=== PATIENT | female | born 1955 | race Caucasian/White ===

== ENCOUNTER → 2017-07-29 | Outpatient (CLI) | payer OTHER ==
[2017-07-29 07:06] LABS: Blood Urea Nitrogen 14 mg/dL (7-17)
--- NOTE | 2017-07-29 10:24 | CT ---
EXAMINATION TYPE: CT ChestAbdPelvis w con DATE OF EXAM: 07/29/2017 COMPARISON: CT pelvis and lumbar spine 05/28/2017 HISTORY: 62-year-old female follow up to rectal CA TECHNIQUE: Contiguous axial scanning of the chest, abdomen, and pelvis performed with IV Contrast, pa tient injected with 100 mL of Omnipaque 300. Delayed images through the kidneys were obtained. Araujo l/sagittal reconstructions performed. CT DLP: 1035.1 mGycm Automated exposure control for dose reduction was used. FINDINGS: Chest: Heart is normal size without pericardial effusion. Coronary vessel calcifications are present and are a marker for coronary artery disease. Ectatic ascending aorta at 3.8 cm. Mild atherosclerotic arch calcifications with conventional arch ve ssel branching anatomy. No thoracic lymphadenopathy by CT size criteria. However, numerous bilateral pulmonary nodules are present. Most are 1.5 cm and smaller. Dominant nodu le measures 3.1 cm anterior right upper lobe and 3.1 cm right infrahilar region. A 1.4 cm right lower lobe pulmonary nodule shows central cavitation, axial image 34. No consolidation or pleural effusion. ABDOMEN: No focal liver lesion or biliary ductal dilatation. Main portal vein is patent. Somewhat early imagin g for adequate assessment of the remaining of the portal venous system. Cholecystectomy clips. A 1.5 cm left adrenal gland nodule appears relatively low density with attenuation of 14 [place] u nits on the delayed kidney images. An adrenal adenoma is suspected. Findings suspicious for a 1.5 cm splenic artery aneurysm with peripheral calcifications. Kidneys, spleen, and pancreas show no gross anomaly. Retroaortic left renal vein incidentally noted. No dilated small bowel, free fluid, or free air. Oral contrast has progressed into the transverse col on. There is moderate stool burden, redundant sigmoid colon. Circumferential wall thickening along the upper rectum (axial image 100) and some mural based increas ed density thickening along the lower rectum (axial image 110) which could represent stool material o r mass and can be correlated clinically. No mesenteric or retroperitoneal lymphadenopathy. PELVIS: Bladder is urine distended. Uterus and ovaries are visualized. No abnormal fluid collection in the pe lvis. Stable mildly enlarged 9 mm right upper presacral lymph node axial image 93 and borderline-size d 5 mm left upper presacral lymph node, axial image 94, decreased in size from 6 mm, previously. Bones: Stable nonspecific focal soft tissue density within the fatty marrow space of the right sacrum, axial image 97. Left L5 hemisacralization and redemonstrated diffuse osteosclerosis and irregularity of th e L3 vertebral body with retropulsion into the spinal canal causing moderate to severe spinal canal s tenosis. As compared to 05/28/2017, mild superior endplate compression deformity of L4 is new. There may be minimal paravertebral soft tissue thickening. No additional osseous destructive process seen. IMPRESSION: 1. SIMILAR CIRCUMFERENTIAL WALL THICKENING UPPER RECTUM. ALSO SOME PERIPHERAL MURAL BASED DENSITY LOW ER RECTUM. CLINICAL CORRELATION RECOMMENDED TO THE SITE OF PATIENT'S KNOWN RECTAL CARCINOMA. 2. A MILDLY ENLARGED 9 MM RIGHT UPPER PRESACRAL LYMPH NODE IS STABLE. A BORDERLINE-SIZED 5 MM LEFT UP PER PRESACRAL LYMPH NODE IS MINIMALLY DECREASED IN SIZE FROM 6 MM, PREVIOUSLY. 3. NUMEROUS BILATERAL PULMONARY NODULES, MAJORITY MEASURING 1.5 CM AND SMALLER BUT WITH LARGER NODULE S/MASSES IN THE RIGHT UPPER LOBE AND RIGHT INFRAHILAR REGION MEASURING UP TO 3.1 CM. FINDINGS SUGGEST METASTATIC DISEASE. 4. STABLE SCLEROSIS AND IRREGULARITY OF THE L3 VERTEBRAL BODY WHICH MAY BE SECONDARY TO METASTATIC DI SEASE WITH RETROPULSION CONTRIBUTING TO MODERATE TO SEVERE SPINAL CANAL STENOSIS. 5. SMALL SOFT TISSUE FOCUS RIGHT SACRUM REDEMONSTRATED AND COULD REPRESENT AN ADDITIONAL OSSEOUS META STATIC FOCUS. 6. MILD SUPERIOR ENDPLATE COMPRESSION FRACTURE OF L4 IS NEW IN THE INTERVAL. A SUBACUTE INJURY IS DESIREE PECTED. 7. A 1.5 CM LEFT ADRENAL NODULE. AN ADRENAL ADENOMA IS SUSPECTED RATHER THAN METASTATIC DISEASE. ATTE NTION ON FOLLOW-UP. 8. 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
== END | disposition home or self-care (01) ==
LOC: RADCTMAIN 06:27
PROVIDERS: ATTEND Internal Medicine Hematology & Oncology
DX: C20 Malignant neoplasm of rectum (principal); R91.8 Other nonspecific abnormal finding of lung field; E27.8 Other specified disorders of adrenal gland; I72.8 Aneurysm of other specified arteries
CPT/HCPCS: 82565; 84520; 71260; 74177; 36415; Q9967

== ENCOUNTER → 2017-10-18 | Outpatient (CLI) | payer OTHER ==
--- NOTE | 2017-10-18 13:05 | XR ---
Left hip HISTORY: Left hip pain 2 views of the left hip correlated to chest abdomen pelvis CT 07/29/2017 Bone mineralization is reduced which could limit sensitivity. Alignment and joint spaces are maintain ed. Vascular calcifications are noted incidentally. No fracture or dislocation. Sclerotic focus noted within the sacrum incidentally. IMPRESSION: Osteopenia, bone scan or MRI may be of increased sensitivity, patient with known metastat ic disease
--- NOTE | 2017-10-18 13:06 | XR ---
Left knee HISTORY: Left knee pain 2 views of the left knee Bone mineralization is reduced. Alignment and joint spaces are maintained. Vascular calcifications ar e present. No evident joint effusion. IMPRESSION: Osteopenia, no acute abnormality.
== END | disposition home or self-care (01) ==
LOC: RADXRMAIN 09:59
PROVIDERS: ATTEND Internal Medicine
DX: C80.1 Malignant (primary) neoplasm, unspecified (principal); M85.852 Other specified disorders of bone density and structure, left thigh; M85.862 Other specified disorders of bone density and structure, left lower leg
CPT/HCPCS: 73502

== ENCOUNTER → 2017-10-22 | Outpatient (CLI) | payer OTHER ==
[2017-10-22 08:59] LABS: Blood Urea Nitrogen 15 mg/dL (7-17)
--- NOTE | 2017-10-22 14:34 | CT ---
EXAMINATION TYPE: CT ChestAbdPelvis w con DATE OF EXAM: 10/22/2017 INDICATION: Rectal CA COMPARISON: 07/29/2017 CT DLP: 1151.2 mGycm CONTRAST: Performed with Oral Contrast and with IV Contrast, patient injected with 100 mL of Isovue 300. TECHNIQUE: Axial images at 5 mm thick sections. Reconstructed images in the coronal plane. Delayed images through the kidneys. FINDINGS: CT CHEST: There is a small hypodensity in the lateral midportion of the left lobe thyroid. Thyroid otherwise ap pears unremarkable. There is a right upper lobe mass adjacent to the mediastinum measuring 3.6 x 3.2 cm in size. Series 3 image 14. This extends towards the right suprahilar region. This has enlarged from comparison. There is a right infrahilar mass measuring 3.0 x 2.3 cm. Series 3 image 27. Additional left and right infrahilar nodules are present. This appears stable from comparison. On lung windows there are numerous small nodules present diffusely and bilaterally.. These are increa sed in size and number from comparison. No enlarged mediastinal or hilar adenopathy is evident. The ascending aorta diameter at the level of the main pulmonary artery is 4.1 cm. The main pulmonary artery diameter at the bifurcation is 2.[address] ABDOMEN: Liver: Normal Spleen: Normal Pancreas: Normal Adrenal glands: The adrenal glands are normal. Gallbladder: Surgically absent Kidneys: No masses are evident. No hydronephrosis is present. No cysts are present. Delayed images were obtained through the kidneys, which remain unremarkable. Aorta: Vascular calcification is within the aorta. Inferior vena cava: Normal. CT PELVIS: Loops of bowel within the abdomen and pelvis are normal. There are loops of bowel which are incom pletely distended or lack oral contrast limiting their evaluation. Appendix: Not identified. No suspicious inflammatory changes or dilated tubular structures are eviden t. Urinary bladder: Normal. Genitourinary structures: Uterus appears unremarkable. Adnexal regions appear within normal limits. Osseous structures: There are compression deformities L3, L4 and L2. Vacuum disc phenomenon is presen t L1-2 and L2-3. Some posterior wall displacement of the L3 compression deformity may be present. IMPRESSIONS: 1. Enlarging right upper lobe medial mass. 2. Increasing number and size of multiple bilateral scattered pulmonary nodules. 3. Interval compression deformity superior endplate of L2. The L3 and L4 compression deformities appe ar stable.
== END | disposition home or self-care (01) ==
LOC: RADCTMAIN 08:15
PROVIDERS: ATTEND Internal Medicine Hematology & Oncology
DX: R91.8 Other nonspecific abnormal finding of lung field (principal); C20 Malignant neoplasm of rectum; Z91.030 Bee allergy status
CPT/HCPCS: 82565; 84520; 71260; 74177; 36415; Q9967

== ENCOUNTER → 2017-11-03 | Outpatient (CLI) | payer OTHER ==
--- NOTE | 2017-11-03 15:53 | NM ---
EXAMINATION TYPE: NM bone scan whole body DATE OF EXAM: 11/03/2017 COMPARISON: CT chest, abdomen, and pelvis dated 10/22/2017 HISTORY: Rectal carcinoma Delayed whole-body scanning was performed following the injection of 25.1 mCi Tc 99m MDP. Images acq uired 3 hours post injection. FINDINGS: Focal abnormal radiotracer uptake is seen within the left pedicle of T8. Retrospectively th ere is a subtle osseous lesion seen on the exam of 10/22/2017 corresponding to this area of uptake. Ot her abnormal areas of radiotracer uptake within the L4, L3, and L2 as well as to a lesser degree of L 5 are favored to represent degenerative change and sequela of compression deformities. Again the comp ression deformities of L3 and 4 are stable from the exam of 07/29/2017. Mild symmetric uptake is seen within the sacroiliac joints, acromioclavicular joints, sternoclavicula r joints, elbows, knees, ankles, and mid feet compatible with degenerative change. No other suspiciou s foci of radiotracer uptake are identified. IMPRESSION: 1. Focal radiotracer uptake within the T8 left pedicle that has a nonspecific appearance on CT but is suspicious for new metastasis. Enhanced MR thoracic spine is recommended to evaluate for bone marrow replacing process on T1-weighted sequences as well as enhancement. 2. Old compression deformities of L3 and L4 with radiotracer uptake are also noted at L2 likely repre senting a subacute compression deformity. MR could be performed to evaluate for pathologic compressio n deformities.
== END | disposition home or self-care (01) ==
LOC: RADNMMAIN 09:45
PROVIDERS: ATTEND Internal Medicine Hematology & Oncology
DX: M43.8X6 Other specified deforming dorsopathies, lumbar region (principal); M25.552 Pain in left hip; C20 Malignant neoplasm of rectum; Z91.030 Bee allergy status
CPT/HCPCS: 78306; A9503

== ENCOUNTER 2017-11-20 09:37 | Day surgery (SDC) | payer OTHER ==
[2017-11-17 08:59] VITALS: BMI 28.5
[~2017-11-20 09:37] MED LIST: DEXAMETHASONE SOD PHOSPHATE 10 MG/ML 1 ML VIAL IV ONE; HYDROmorphone 0.5 MG/0.5 ML SYRINGE IVP PRN; LACTATED RINGERS 1,000 ML IV SCH; ONDANSETRON 4 MG/2 ML VIAL IVP ONE
[2017-11-20] MEDS ORDERED: LIDOCAINE 1% 20 ML VIAL (10MG/ML) FOR IV START IV ONE (10:12)
[2017-11-20] MEDS ORDERED: MIDAZOLAM 2 MG/2 ML VIAL ONE (12:01)
[2017-11-20] MEDS ORDERED: PROPOFOL 10 MG/ML 20 ML VIAL IV ONE (12:01)
[2017-11-20] MEDS ORDERED: fentaNYL (PF) 50 MCG/ML 2 ML AMP ONE (12:01)
[2017-11-20] MEDS ORDERED: ceFAZolin IN SWFI 2 GM/20 ML SYRINGE IVP ONE (12:08)
[2017-11-20] MEDS ORDERED: HEPARIN SODIUM,PORCINE 100 UNIT/ML 5 ML VIAL IV ONE (12:16)
[2017-11-20] MEDS ORDERED: LIDOCAINE (PF) 10 MG/ML 2 ML VIAL SQ ONE ×2 (12:16)
--- NOTE | 2017-11-20 13:10 | FL ---
Fluoroscopy INDICATION: Pain FINDINGS: Fluoroscopy time: 7 seconds. Images obtained: 1. IMPRESSIONS: 1. Documentation of fluoroscopy.
[2017-11-20 13:23] VITALS: TEMP 97.2
--- NOTE | 2017-11-20 13:28 | P.OP ---
Date of Procedure: 11/20/17 Preoperative Diagnosis: Rectal CA Postoperative Diagnosis: Rectal CA Procedure(s) Performed: Right subclavian Mediport placement and flex sigmoidoscopy with biopsy of rectal cancer Anesthesia: MAC Surgeon: Bacilio Mancini Estimated Blood Loss (ml): 5 Condition: stable Disposition: PACU Indications for Procedure: Patient with known rectal CA, she needs port for chemotherapy and oncology is requesting biopsy of rectal tumor for further genetic testing regarding chemotherapy options. Description of Procedure: Patient brought operative suite remained in supine position underwent sedation per department of anesthesia. She was prepped and draped in the usual sterile fashion timeout was performed correct patient correct procedure correct site was verified the skin and subcutaneous tissues over the right anterior chest just at inferior to the clavicle was anesthetized with 1% local lidocaine. The patient was placed in Trendelenburg The cannulating needle was then used to cannulate the right subclavian vein on the first attempt. Guidewire was passed and verified under fluoroscopy to be in the correct place. Sheath was placed over the guidewire and the dilator and guidewire were removed leaving the sheath in place pocket was created 3 cm distal to this incision and hemostasis was achieved the catheter was then attempted to be placed over the sheath and the sheath had collapsed between the subclavian and first ribs the sheath was removed and a larger 8-Russian sheath was then replaced in a similar fashion on the first attempt the 8-Russian catheter was easily placed through the sheath and into the correct place at the SVC atrial junction under fluoroscopy. The sheath was broken and removed. Leaving the catheter in place. The catheter which had been tunneled previously was then attached to the port and the port was sutured to the prepectoral fascia using 2-0 PDS suture. The port was then flushed and hep-locked with ease final picture was taken the port was noted to be in good place the incision was closed with 30 subdermal sutures followed by 4 -0 Monocryl sutures the neck incision was closed with 4-0 Monocryl Steri-Strips and sterile dressing were applied. Attention was then turned to the rectum rectal exam was performed there was a large mass noted in the rectum flex sigmoidoscopy was performed and this large fungating mass which is partially obstructing was unable to have the scope passed completely passed it there was stool passing through it. There were multiple biopsies taken with both snare and cold forceps biopsies hemostasis was achieved biopsies were sent to pathology patient tolerated procedure well no apparent complications chest x- ray was ordered for PACU
[2017-11-20 13:39] VITALS: RESP 18
--- NOTE | 2017-11-20 13:45 | XR ---
EXAMINATION TYPE: XR chest 1V portable DATE OF EXAM: 11/20/2017 COMPARISON: CT chest abdomen pelvis dated 10/22/2017 HISTORY: Mediport placement TECHNIQUE: Single frontal view of the chest is obtained. FINDINGS: There is no focal air space opacity, pleural effusion, or pneumothorax seen. Right upper l obe mediastinal mass abuts the right paratracheal stripe. The known right infrahilar mass is not well visualized radiographically. The cardiac silhouette size is within normal limits. The osseous stru ctures are intact. Right-sided Mediport terminates in the cavoatrial junction, appropriately placed. IMPRESSION: 1. Appropriately placed right-sided Mediport terminating in the cavoatrial junction with no postproce dural pneumothorax. 2. Redemonstration of a right upper lobe pulmonary mass with limited visualization of the known right infrahilar mass better seen on CT.
[2017-11-20 14:06] VITALS: BP 160/90; PULSE 70
== END 2017-11-20 14:10 | disposition home or self-care (01) ==
LOC: OR 09:37
PROVIDERS: ATTEND Student in an Organized Health Care Education/Training Program
DX: C20 Malignant neoplasm of rectum (principal); C78.7 Secondary malignant neoplasm of liver and intrahepatic bile duct; C79.89 Secondary malignant neoplasm of other specified sites; I10 Essential (primary) hypertension; Z85.038 Personal history of other malignant neoplasm of large intestine; Z87.891 Personal history of nicotine dependence; M19.90 Unspecified osteoarthritis, unspecified site; Z79.891 Long term (current) use of opiate analgesic; Z79.899 Other long term (current) drug therapy
CPT/HCPCS: 88305; 77001; 71045; 45331; 36561; C1788; J2250; J2001; J1642; J1100; J2405; J3010; J2704; J0690

== ENCOUNTER → 2018-03-03 | Outpatient (CLI) | payer OTHER ==
[2018-03-03 11:43] LABS: Blood Urea Nitrogen 12 mg/dL (7-17)
--- NOTE | 2018-03-03 14:00 | CT ---
EXAMINATION TYPE: CT ChestAbdPelvis w con DATE OF EXAM: 03/03/2018 COMPARISON: 10/22/2017 and 07/29/2017 HISTORY: 63 year-old female follow-up Rectal CA. Last chemotherapy one week ago. TECHNIQUE: Contiguous axial scanning of the chest, abdomen, and pelvis performed with IV Contrast, pa tient injected with 100 mL of Isovue 300. Delayed images through the kidneys were obtained. Coronal/s agittal reconstructions performed. CT DLP: 1342.8 mGycm Automated exposure control for dose reduction was used. FINDINGS: Right anterior chest wall injection port with catheter tip at the cavoatrial junction. Heart normal s ize without pericardial effusion. Coronary vessel calcifications are present. Ectatic ascending aorta 3.9 cm with mild atherosclerotic arch calcifications. Stable 7 mm subcarinal lymph node. No thoracic lymphadenopathy by CT size criteria. Interval decrease in overall number and size of numerous bilateral pulmonary nodules, for example, do minant medial right upper lobe pulmonary nodule now measures 2.0 cm versus 3.6 cm, previously. Superior segment right lower lobe pulmonary nodule measures 2.5 cm and shows internal areas of air ca vitation versus 3.1 cm, previously. Left lower lobe peribronchial nodule measures 1.1 cm versus 1.6 cm, previously. No new pulmonary nodules are seen. No pleural effusions. Prominent 1.5 cm right hilar lymph node remains. ABDOMEN: No focal liver lesion or biliary ductal dilatation. Portal venous system is patent. Cholecystectomy clips. Stable 1.6 cm nodule left adrenal gland and and some peripheral calcifications near the splenic hilum measuring 1.6 cm, probable splenic artery aneurysm. Right adrenal gland, kidneys, spleen, and pancreas appear within normal limits. Moderate to severe focal atherosclerotic change within the proximal SMA at the level of the third por tion of the duodenum. Moderate atherosclerotic calcifications in the infrarenal abdominal aorta and iliac arteries. Retroaortic left renal vein. No mesenteric or retroperitoneal lymphadenopathy. No dilated small bowel, free fluid, or free air. Oral contrast progressed to the proximal third trans verse colon. There is moderate stool with mild diverticulosis proximal and mid sigmoid. No pericoloni c inflammatory change. The previously seen mild circumferential wall thickening at the rectosigmoid j unction is less apparent. Pelvis: Uterus and ovaries are visualized. Possible endometrial thickening at 1 cm, sagittal image 47 giving better assessed with pelvic ultrasound. Pelvic phlebolith. No abnormal fluid collection in the pelvis or pelvic lymphadenopathy. Bones: Mild degenerative changes at the hips. Left L5 hemisacralization. Diffuse heterogeneous sclerosis of the L3 vertebral body with endplate deformities and severe spinal canal stenosis due to retropulsion. Sclerosis has progressed from 10/22/2017. Superior endplate compression deformities of L2 and L4 are unchanged from that time. There is progressive sclerosis and lucency within the T8 vertebral body. IMPRESSION: 1. POSITIVE TREATMENT RESPONSE WITH DECREASED SIZE AND NUMBER OF NUMEROUS BILATERAL PULMONARY NODULES . THE DOMINANT RIGHT UPPER LOBE NODULE NOW MEASURES 2.0 CM VERSUS 3.6 CM, PREVIOUSLY. 2. PREVIOUS CIRCUMFERENTIAL WALL THICKENING AT THE RECTOSIGMOID JUNCTION HAS RESOLVED AND MAY CORRESP OND TO THE SITE OF PATIENT'S PRIMARY NEOPLASM. 3. STABLE L3 VERTEBRAL BODY DEFORMITY WITH PROGRESSIVE SCLEROSIS FROM 10/22/2017 COULD REPRESENT HEALI NG OSSEOUS METASTASIS. THERE IS SIMILAR RETROPULSION WITH SEVERE SPINAL CANAL STENOSIS AT THIS LEVEL. 4. INCREASING HETEROGENEITY OF THE T8 VERTEBRAL BODY COULD REPRESENT INTERVAL HEALING OF A SECOND SIT E OF OSSEOUS METASTASIS. FOLLOW-UP RECOMMENDED. 5. POSSIBLE ABNORMAL ENDOMETRIAL THICKENING OF 1 CM IN A POSTMENOPAUSAL FEMALE. CORRELATE FOR ANY POS TMENOPAUSAL BLEEDING. CONSIDER PELVIC ULTRASOUND TO FURTHER ASSESS THE ENDOMETRIAL STRIPE.
== END | disposition home or self-care (01) ==
LOC: RADPROMAIN 10:22
PROVIDERS: ATTEND Internal Medicine Hematology & Oncology
DX: C20 Malignant neoplasm of rectum (principal); R91.8 Other nonspecific abnormal finding of lung field; C79.51 Secondary malignant neoplasm of bone
CPT/HCPCS: 82565; 84520; 71260; 74177; 36415; Q9967

== ENCOUNTER → 2018-06-05 | Outpatient (CLI) | payer OTHER ==
[2018-06-05 12:17] LABS: Blood Urea Nitrogen 13 mg/dL (7-17)
--- NOTE | 2018-06-05 18:15 | CT ---
EXAMINATION TYPE: CT ChestAbdPelvis w con DATE OF EXAM: 06/05/2018 INDICATION: Rectal CA COMPARISON: 03/03/2018 CT DLP: 1335.9 mGycm CONTRAST: Performed with Oral Contrast and with IV Contrast, patient injected with 100 mL of Isovue 300. TECHNIQUE: Axial images at 5 mm thick sections. Reconstructed images in the coronal plane. Delayed images through the kidneys. FINDINGS: CT CHEST: Portion of the thyroid visualized is normal. There is an irregular 2.4 x 1.3 cm mass lateral to the superior vena cava and the right upper lobe. T his is slightly larger than comparison. Series 4 image 15. There is a 0.4 cm transverse dimension nodule in the peripheral right upper lobe. Series 4 image 12. This was present previously. There is an area of pneumonitis measuring 0.7 cm in the peripheral right upper lobe. Series 4 image 1 7. This appears more focal in the comparison. There is a 0.4 similar nodule in the periphery of the right upper lung field. Series 4 image 18. This was not identified previously. There is a 1.4 right hilar mass which is smaller than comparison previously 1.6 cm. A 1.3 cm rounded nodule in periphery of the right lower lobe is stable from comparison. Series 4 image 26. There is a right lower lobe 1.8 cm spiculated area of pneumonitis are less dense comparison study. Sl ightly more anterior 0.6 cm which is less than comparison. Series 4 image 30. There is a smaller density in the peripheral left lower lobe. 0.5 cm. Series 4 image 38. No enlarged mediastinal or hilar adenopathy is evident. The ascending aorta diameter at the level of the main pulmonary artery is 3.8 cm. The main pulmonary artery diameter at the bifurcation is 2.[address] ABDOMEN: Liver: There is mild fatty infiltration of liver. Spleen: Normal.Suspected splenic artery aneurysm appears stable. Pancreas: Normal Adrenal glands: There is a 1.6 cm nodule in the posterior lateral the left adrenal gland. This is sta ble from priors. Gland appears normal. Gallbladder: Surgically absent Kidneys: No masses are evident. No hydronephrosis is present. No cysts are present. Delayed images were obtained through the kidneys, which remain unremarkable. Aorta: Vascular calcification is within the aorta. Inferior vena cava: Normal. CT PELVIS: Loops of bowel within the abdomen and pelvis are normal. There are loops of bowel which are incom pletely distended or lack oral contrast limiting their evaluation. Patient's reported rectosigmoid ma ss node be difficult to separate from the fecal debris present within the colon. Appendix: What appears to be the appendix is normal. No suspicious tubular structures or inflammatory changes are evident. Urinary bladder: Normal. Genitourinary structures: Uterus is normal. A 1.3 cm cyst on the right ovary is not excluded. Osseous structures: No suspicious lytic or sclerotic lesions. Facet changes lumbar spine. IMPRESSIONS: 1. Spiculated mass right upper lobe slightly larger than comparison. 2. Multiple additional areas of lung nodules or pneumonitis are relatively stable slightly improved f rom comparison.
== END | disposition home or self-care (01) ==
LOC: RADPROMAIN 10:46
PROVIDERS: ATTEND Internal Medicine Hematology & Oncology
DX: R91.8 Other nonspecific abnormal finding of lung field (principal); C20 Malignant neoplasm of rectum
CPT/HCPCS: 82565; 84520; 71260; 74177; 36415; Q9967

== ENCOUNTER → 2018-08-25 | Outpatient (CLI) | payer OTHER ==
[2018-08-25 08:13] LABS: Blood Urea Nitrogen 14 mg/dL (7-17)
--- NOTE | 2018-08-25 09:33 | CT ---
EXAMINATION TYPE: CT ChestAbdPelvis w con DATE OF EXAM: 08/25/2018 COMPARISON: June 05, 2018 HISTORY: Follow up to rectal CA CT DLP: 1840 mGycm CONTRAST: CT scan of the chest, abdomen and pelvis is performed with Oral Contrast and with IV Contrast, patien t injected with 100 mL of [address]vue 300. [address] Chest: LUNGS: Spiculated nodule right upper lobe medially appears to have enlarged and measures 2.8 cm maxim al dimension versus 2.4 cm previously. Stable right lower lobe pulmonary nodule measuring 1.3 cm vers us 1.3 cm. Additional stable spiculated right lower lobe nodule measuring 1.6 cm versus 1.7 cm. Addit ional numerous pulmonary nodules measuring less than 8 mm appear stable in overall number. MEDIASTINUM: Thoracic aorta is of normal caliber. The heart is not enlarged. No evidence for media stinal mass or adenopathy. HILAR STRUCTURES: No evidence for mass. No hilar adenopathy is appreciated. OTHER: No significant abnormality. CONTRAST CT ABDOMEN AND PELVIS FINDINGS: LIVER/GB: The gallbladder is surgically absent. No space occupying hepatic lesion. Biliary tree is of normal caliber. PANCREAS: No inflammation. No distinct mass. SPLEEN: No splenic enlargement. No lesion seen. ADRENALS: Stable left adrenal nodule measuring 1.3 cm versus a 1.5 cm previously. No thickening. KIDNEYS/BLADDER: No hydronephrosis. No nephrolithiasis. No disctinct renal mass. BOWEL: Normal appendix. Normal bowel caliber. No inflammation. GENITAL ORGANS: No gross abnormality. LYMPH NODES: No greater than 1cm abdominal or pelvic lymph nodes are appreciated. AORTA: No significant abnormality. OSSEOUS STRUCTURES: No significant abnormality is seen. OTHER: No significant additional abnormality is seen. IMPRESSION: 1. Innumerable bilateral pulmonary nodules persist. Dominant spiculated nodule right upper lobe demon strates slight increase in size. Overall no increase in the overall number of nodules suspected. 2. Stable left adrenal nodule.
== END | disposition home or self-care (01) ==
LOC: RADCTMAIN 07:27
PROVIDERS: ATTEND Internal Medicine Hematology & Oncology
DX: E27.8 Other specified disorders of adrenal gland (principal); R91.8 Other nonspecific abnormal finding of lung field; C20 Malignant neoplasm of rectum
CPT/HCPCS: 82565; 84520; 71260; 74177; 36415; Q9967

== ENCOUNTER → 2018-12-14 | Outpatient (CLI) | payer OTHER ==
--- NOTE | 2018-12-14 15:13 | CT ---
EXAMINATION TYPE: CT ChestAbdPelvis w con DATE OF EXAM: 12/14/2018 INDICATION: Rectal CA, observation for mets COMPARISON: 08/25/2018 CT DLP: 989.3 mGycm CONTRAST: Performed with Oral Contrast and with IV Contrast, patient injected with 100 mL of Isovue 300. TECHNIQUE: Axial images at 5 mm thick sections. Reconstructed images in the coronal plane. Delayed images through the kidneys. FINDINGS: CT CHEST: Portion of the thyroid visualized is normal. There are numerous punctate nodules scattered throughout the bilateral lung maki. Some larger notab le nodules would include: There is a 0.7 cm nodule in the posterior lateral left lung base. Series 201 image 40. Punctate nodul es measured up to 0.3 cm are at the left lung base posterior lateral. 0.8 cm nodules in the left late ral lung base. Series 201 image 33. 0.8 cm nodules in the medial right middle lobe. There is a 2.1 x 1.4 cm spiculated density in the posterior right lower lobe. There is a posterior la teral right midlung nodule measuring 1.3 cm. Image 23 there is a spiculated density at the posterior lateral right apex measuring 1.0 cm. There is a 2.5 x 2.2 cm nodule adjacent to the superior right mediastinal border. This is smaller luz maria n comparison. There is a 1.1 cm right suprahilar lymph node. Note is made of coronary artery calcification. The ascending aorta diameter at the level of the main pulmonary artery is 2.7 cm. The main pulmonary artery diameter at the bifurcation is 2.[address] ABDOMEN: Liver: Normal Spleen: Normal Pancreas: Normal Adrenal glands: There is thickening of 1.7 cm to the lateral limb of the left adrenal gland. Gallbladder: Surgically absent Kidneys: No masses are evident. No hydronephrosis is present. No cysts are present. Delayed images were obtained through the kidneys, which remain unremarkable. Aorta: Vascular calcification is within the aorta. 2.2 cm abdominal aortic fusiform prominence is in the mid abdominal aorta. Inferior vena cava: Normal. CT PELVIS: Loops of bowel within the abdomen and pelvis are normal. There are loops of bowel which are incom pletely distended or lack oral contrast limiting their evaluation. Appendix: Normal as visualized. Urinary bladder: Normal. Genitourinary structures: Uterus appears unremarkable. Adnexal regions are clear. Osseous structures: No suspicious lytic or sclerotic lesions. There is some lucency along the superio r margin of the right acetabulum. Nondisplaced fracture could be considered. Right acetabulum appears somewhat sclerotic. IMPRESSIONS: 1. Numerous scattered bilateral small nodules within the bilateral lung maki. 2. The largest mass superior right mediastinal border region is smaller than the comparison. 3. The pretracheal lymph node is new from comparison. The subcarinal lymph node is stable. 4. Some nondisplaced linear for at the level of the acetabulum should be considered. This extends bey ond the cortex although an occult fracture should be considered.
== END | disposition home or self-care (01) ==
LOC: RADPROMAIN 07:02
PROVIDERS: ATTEND Internal Medicine Hematology & Oncology
DX: R91.8 Other nonspecific abnormal finding of lung field (principal); Z03.89 Encounter for observation for other suspected diseases and conditions ruled out
CPT/HCPCS: 82565; 84520; 71260; 74177; Q9967

== ENCOUNTER 2018-12-15 07:46 | Emergency (ER) | payer OTHER ==
[2018-12-15 07:51] VITALS: BP 110/79; PULSE 87; RESP 20; TEMP 98.6
--- NOTE | 2018-12-15 07:54 | ED ---
Recheck HPI - General Chief Complaint: Recheck/Abnormal Lab/Rx Stated Complaint: Arm pain Time Seen by Provider: 12/15/18 07:53 Source: patient Mode of arrival: ambulatory Limitations: no limitations - History of Present Illness Initial Comments: 63-year-old female with history of colon cancer with metastasis to the liver and lungs presenting for evaluation of right upper arm pain. Patient states that she had a CT of her chest yesterday. She states she received IV contrast, in the arm that is painful. Patient denies any leakage of fluid into the arm or swelling at the time of CT. Patient states that she woke up this morning with arm pain she points on history taking from the level of the mid humerus to the mid forearm. Patient denies any swelling of the elbow redness fever or chills nightsweats or malaise. Patient states that she is able to bend at the elbow but the arm is tender to touch. Patient denies redness, or rash. Patients son was concerned and made patient come to the ER for evaluation. Patient denies fall or trauma. Patietn denies shortness of breath, chest pain, arm swelling, history of DVT/PE or any other complaints. Upon arrival patient appears well. - Related Data Home Medications Medication Instructions Recorded Confirmed HYDROcodone/APAP 7.5-325MG [Minong 1 tab PO BID 12/15/18 12/15/18 7.5-325] Hydrochlorothiazide [Hydrodiuril] 12.5 mg PO DAILY 12/15/18 12/15/18 Lisinopril-Hctz 10-12.5 mg 1 tab PO DAILY 12/15/18 12/15/18 [Zestoretic 10-12.5] Allergies Allergy/AdvReac Type Severity Reaction Status Date / Time bee venom protein (honey bee) Allergy Swelling Verified 12/15/18 08:23 Review of Systems ROS Statement: Those systems with pertinent positive or pertinent negative responses have been documented in the HPI. ROS Other: All systems not noted in ROS Statement are negative. Past Medical History Past Medical History: Cancer, Hypertension, Osteoarthritis (OA) Additional Past Medical History / Comment(s): RECTAL CANCER,SPOTS ON LUNGS AND LIVER" History of Any Multi-Drug Resistant Organisms: None Reported Past Surgical History: Section, Cholecystectomy Additional Past Surgical History / Comment(s): C SECTION X2 , COLONOSCOPY Past Anesthesia/Blood Transfusion Reactions: Postoperative Nausea & Vomiting (PONV) Additional Past Anesthesia/Blood Transfusion Reaction / Comment(s): CLAUSTROPHOBIA Past Psychological History: No Psychological Hx Reported Smoking Status: Former smoker Past Alcohol Use History: None Reported Past Drug Use History: None Reported - Past Family History Mother Family Medical History: Cancer Father Family Medical History: Cancer Sister(s) Family Medical History: Deep Vein Thrombosis (DVT) General Exam - General Exam Comments Initial Comments: General: The patient is awake and alert, in no distress, and does not appear acutely ill. Eye: Pupils are equal, round and reactive to light, extra-ocular movements are intact. No nystagmus. There is normal conjunctiva bilaterally. No signs of icterus. Ears, nose, mouth and throat: There are moist mucous membranes and no oral lesions. Neck: The neck is supple, there is no tenderness or JVD. Cardiovascular: There is a regular rate and rhythm. No murmur, rub or gallop is appreciated. Respiratory: Lungs are clear to auscultation, respirations are non-labored, breath sounds are equal. No wheezes, stridor, rales, or rhonchi. Gastrointestinal: Soft, non-distended, non-tender abdomen without masses or organomegaly noted. There is no rebound or guarding present. Musculoskeletal: No noted erythema and soft tissue swelling of the right elbow or right upper extremity. Patient is tender to palpation along the ventral aspect of the right upper extremity from the mid humerus to the midforarm. No n oted masses or redness. Normal ROM, no tenderness at elbow/wrist. Strength 5/5. Sensation intact both proximal and distal to injury site. +2 radial pulses equal bilaterally 2+. Neurological: A&O x 3. CN II-XII intact, There are no obvious motor or sensory deficits. Coordination appears grossly intact. Speech is normal. Skin: Skin is warm and dry and no rashes. Small scab over the dorsal aspect of the right forearm, just distal to the elbow joint. Psychiatric: Cooperative, appropriate mood & affect, normal judgment. Limitations: no limitations Course Vital Signs 12/15/18 07:49 Temperature 98.6 F Pulse Rate 87 Respiratory 20 Rate Blood Pressure 110/79 O2 Sat by Pulse 99 Oximetry - Reevaluation(s) Reevaluation #1: 12/15/18 10:12 Spoke with Miri Clemente that took care of patient the day prior she states there was no extravastion of fluid from CT. she states patient did have to hold arm over head, various positions. Medical Decision Making - Medical Decision Making 63-year-old female presenting for right arm pain. There is no evidence of skin changes on examination. Patient neurovascularly intact. Full sensation and strength. Patient is able to range without limitations at the right elbow no evidence of redness of the right elbow. Patient is no swelling noted of the right upper extremity. No noted point localized tenderness around the IV site. Patient is tender along the ventral aspect. The patient's history of cancer concern for possible deep venous thrombosis. Child was obtained revealing no evidence of blood clot. I was able to speak with the [facility] that K for patient yesterday. She states that patient was complaining of pain when the IV was removed. She states patient was not experiencing pain before. She denied any leakage of the IV site. She states patient was in various positioning of the right arm she states this could be a cause. Patient at this time is requesting discharge. Patient be placed in sling for comfort. Recommend patient follow-up with primary care provider and return to ER for persistent, increasing pain any redness swelling or fevers. Patient verbalized understanding. Patient discharged appearing well after discussing case with Disposition Clinical Impression: Right arm pain Disposition: HOME SELF-CARE Condition: Good Instructions (If sedation given, give patient instructions): Arm Pain (ED) Additional Instructions: Please use medication as discussed. Please follow-up with family doctor in the next 2 days of symptoms have not improved. Please return to emergency room if the symptoms increase or worsen or for any other concerns, swelling, redness, fevers, increasing or persistent pain. Is patient prescribed a controlled substance at d/c from ED?: No Referrals: Sharon Askew MD [Primary Care Provider] - 1-2 days Time of Disposition: 09:21
--- NOTE | 2018-12-15 08:49 | US ---
EXAMINATION TYPE: US venous doppler duplex UE RT DATE OF EXAM: 12/15/2018 COMPARISON: NONE CLINICAL HISTORY: Pain. Pt states CT with IV contrast done yesterday/ currently having pain at IV sit e right arm near antecubital fossa SIDE PERFORMED: Right Right Arm: Negative for DVT Grayscale, color doppler, spectral doppler imaging performed of the deep veins of the right upper ext remities. There is normal flow, compressibility and vascular waveforms IMPRESSION: No ultrasound evidence for acute deep or superficial venous thrombosis in the right upper extremity. .
== END 2018-12-15 09:37 | disposition home or self-care (01) ==
LOC: EC 07:46
DX: M79.621 Pain in right upper arm (principal); I10 Essential (primary) hypertension; M19.90 Unspecified osteoarthritis, unspecified site; C78.7 Secondary malignant neoplasm of liver and intrahepatic bile duct; C78.00 Secondary malignant neoplasm of unspecified lung; Z87.891 Personal history of nicotine dependence; Z79.891 Long term (current) use of opiate analgesic; Z79.899 Other long term (current) drug therapy; Z91.030 Bee allergy status; Z85.048 Personal history of other malignant neoplasm of rectum, rectosigmoid junction, and anus; Z85.038 Personal history of other malignant neoplasm of large intestine; Z82.49 Family history of ischemic heart disease and other diseases of the circulatory system
CPT/HCPCS: 99283

== ENCOUNTER 2019-01-22 17:38 | Emergency (ER) | payer OTHER ==
[2019-01-22 17:47] VITALS: BP 120/81; PULSE 85; RESP 18; TEMP 98.4
--- NOTE | 2019-01-22 18:37 | ED ---
Allergic Reaction HPI - General Chief complaint: Allergic Reaction Stated complaint: Allergic Reaction Time Seen by Provider: 01/22/19 18:09 Source: patient, RN notes reviewed Mode of arrival: ambulatory Limitations: no limitations - History of Present Illness Initial Comments: 64-year-old female presents emergency Department with chief complaint of rash, ALLERGIC reaction. Patient states that she was started on a new chemotherapy medication called capecitabine yesterday she has taken 2 doses. Patient states shortly after initial dose that she noticed that she had some difficulty breathing states that she also had a flushed feeling her skin turned red. Patient states her difficult breathing has resolved but states that she still has some redness and flushed feeling. Patient states that she also received her intravenous given medication yesterday. Patient states this is not a new medication for her. Patient does not take any medications currently for the reaction. She has no sore throat. Patient states that symptoms are improved at this time. - Related Data Home Medications Medication Instructions Recorded Confirmed HYDROcodone/APAP 7.5-325MG [[place] 1 tab PO BID 12/15/18 12/15/18 7.5-325] Hydrochlorothiazide [Hydrodiuril] 12.5 mg PO DAILY 12/15/18 12/15/18 Lisinopril-Hctz 10-12.5 mg 1 tab PO DAILY 12/15/18 12/15/18 [Zestoretic 10-12.5] Allergies Allergy/AdvReac Type Severity Reaction Status Date / Time bee venom protein (honey bee) Allergy Swelling Verified 01/22/19 17:47 Review of Systems ROS Statement: Those systems with pertinent positive or pertinent negative responses have been documented in the HPI. ROS Other: All systems not noted in ROS Statement are negative. Past Medical History Past Medical History: Cancer, Hypertension, Osteoarthritis (OA) Additional Past Medical History / Comment(s): RECTAL CANCER,SPOTS ON LUNGS AND LIVER" History of Any Multi-Drug Resistant Organisms: None Reported Past Surgical History: Section, Cholecystectomy Additional Past Surgical History / Comment(s): COLONOSCOPY Past Anesthesia/Blood Transfusion Reactions: Postoperative Nausea & Vomiting (PONV) Additional Past Anesthesia/Blood Transfusion Reaction / Comment(s): CLAUSTRO PHOBIA Past Psychological History: No Psychological Hx Reported Smoking Status: Former smoker Past Alcohol Use History: None Reported Past Drug Use History: None Reported - Past Family History Mother Family Medical History: Cancer Father Family Medical History: Cancer Sister(s) Family Medical History: Deep Vein Thrombosis (DVT) General Exam Limitations: no limitations General appearance: alert, in no apparent distress Head exam: Present: atraumatic, normocephalic, normal inspection Eye exam: Present: normal appearance, PERRL, EOMI. Absent: scleral icterus, conjunctival injection, periorbital swelling ENT exam: Present: normal exam, normal oropharynx, mucous membranes moist Neck exam: Present: normal inspection, full ROM. Absent: tenderness, meningismus, lymphadenopathy Respiratory exam: Present: normal lung sounds bilaterally. Absent: respiratory distress, wheezes, rales, rhonchi, stridor Cardiovascular Exam: Present: regular rate, normal rhythm, normal heart sounds. Absent: systolic murmur, diastolic murmur, rubs, gallop, clicks Skin exam: Present: warm, dry, intact, normal color. Absent: rash Course Vital Signs 01/22/19 17:44 Temperature 98.4 F Pulse Rate 85 Respiratory 18 Rate Blood Pressure 120/81 O2 Sat by Pulse 99 Oximetry Medical Decision Making - Medical Decision Making 64-year-old female presented for mild reaction to new chemotherapy medication. I did contact her oncologist Dr. Noguera who recommended patient to discontinue the medication will follow-up at the beginning a week with either him or nurse practitioner. Patient is stable symptoms are subsiding. Patient does not require steroids or and history is at this time. Disposition Clinical Impression: Adverse reaction to drug Disposition: HOME SELF-CARE Condition: Stable Instructions (If sedation given, give patient instructions): General Allergic Reaction (ED) Additional Instructions: Please return to the Emergency Department if symptoms worsen or any other concerns. Is patient prescribed a controlled substance at d/c from ED?: No Referrals: Sharon Askew MD [Primary Care Provider] - 1-2 days Tyson Noguera MD [STAFF PHYSICIAN] - 1-2 days Time of Disposition: 18:36
== END 2019-01-22 18:51 | disposition home or self-care (01) ==
LOC: EC 17:38
DX: R21 Rash and other nonspecific skin eruption (principal); T45.1X5A Adverse effect of antineoplastic and immunosuppressive drugs, initial encounter; I10 Essential (primary) hypertension; Z79.899 Other long term (current) drug therapy; Z91.030 Bee allergy status; Z87.891 Personal history of nicotine dependence; Z85.048 Personal history of other malignant neoplasm of rectum, rectosigmoid junction, and anus
CPT/HCPCS: 99283

== ENCOUNTER 2019-02-24 12:48 | Inpatient (IN) | payer OTHER ==
[2019-02-24] MEDS ORDERED: SODIUM CHLORIDE 0.9% 2,000 ML IV STA (14:38)
[2019-02-24] MEDS ORDERED: MORPHINE SULFATE 4 MG/ML SYRINGE IV STA (14:38)
[2019-02-24] MEDS ORDERED: SODIUM CHLORIDE 0.9% 1,000 ML IV STA (14:38)
--- NOTE | 2019-02-24 14:51 | ED ---
Back Pain HPI - General Chief Complaint: Back Pain/Injury Stated Complaint: back pain Time Seen by Provider: 02/24/19 14:08 Source: patient, RN notes reviewed, old records reviewed Limitations: no limitations - History of Present Illness Initial Comments: 64-year-old female with a history of colon cancer presents emergency department today with worsening mid lower back pain with radiation down the right leg. Patient reports 10 history of cancer in her lumbar spine, but her pain has become out of control. She states she's been taking Hesperus 3 times a day with no significant relief of her symptoms. Patient states that she is concerned cancer may have returned to her spine. Patient states that she's had no abnormal stools or vomiting. She denies any urinary symptoms. - Related Data Home Medications Medication Instructions Recorded Confirmed HYDROcodone/APAP 7.5-325MG [Hesperus 1 tab PO Q8H 12/15/18 02/24/19 7.5-325] Hydrochlorothiazide [Hydrodiuril] 12.5 mg PO DAILY 12/15/18 02/24/19 Lisinopril [Zestril] 20 mg PO DAILY 02/24/19 02/24/19 Allergies Allergy/AdvReac Type Severity Reaction Status Date / Time bee venom protein (honey bee) Allergy Swelling Verified 02/24/19 14:02 Review of Systems ROS Statement: Those systems with pertinent positive or pertinent negative responses have been documented in the HPI. ROS Other: All systems not noted in ROS Statement are negative. Past Medical History Past Medical History: Cancer, Hypertension, Osteoarthritis (OA) Additional Past Medical History / Comment(s): RECTAL CANCER,SPOTS ON LUNGS AND LIVER" History of Any Multi-Drug Resistant Organisms: None Reported Past Surgical History: Section, Cholecystectomy Additional Past Surgical History / Comment(s): COLONOSCOPY Past Anesthesia/Blood Transfusion Reactions: Postoperative Nausea & Vomiting (PONV) Additional Past Anesthesia/Blood Transfusion Reaction / Comment(s): CLAUSTROPHOBIA Past Psychological History: No Psychological Hx Reported Smoking Status: Former smoker Past Alcohol Use History: None Reported Past Drug Use History: None Reported - Past Family History Mother Family Medical History: Cancer Father Family Medical History: Cancer Sister(s) Family Medical History: Deep Vein Thrombosis (DVT) General Exam - General Exam Comments Initial Comments: Is a 64-year-old female. Alert and oriented 3. No significant distress. Limitations: no limitations General appearance: alert, in no apparent distress Head exam: Present: atraumatic Eye exam: Present: normal appearance, PERRL, EOMI. Absent: scleral icterus, conjunctival injection, periorbital swelling ENT exam: Present: normal exam, mucous membranes moist Neck exam: Present: normal inspection. Absent: tenderness, meningismus, lymphadenopathy Respiratory exam: Present: normal lung sounds bilaterally. Absent: respiratory distress, wheezes, rales, rhonchi, stridor Cardiovascular Exam: Present: regular rate, normal rhythm, normal heart sounds. Absent: systolic murmur, diastolic murmur, rubs, gallop, clicks GI/Abdominal exam: Present: soft, normal bowel sounds. Absent: distended, guarding, rebound, rigid Extremities exam: Present: normal inspection Back exam: Present: normal inspection, tenderness (His lumbar spinal tenderness.), paraspinal tenderness, vertebral tenderness Neurological exam: Present: alert, oriented X3, CN II-XII intact Psychiatric exam: Present: normal affect, normal mood Skin exam: Present: warm, dry, intact, normal color. Absent: rash Course Vital Signs 02/24/19 02/24/19 13:04 17:00 Temperature 99.3 F Pulse Rate 100 78 Respiratory 16 20 Rate Blood Pressure 112/80 138/94 O2 Sat by Pulse 100 95 Oximetry Medical Decision Making - Medical Decision Making 64-year-old female with history of rectal cancer presents today with worsening back pain. She reports the pain is radiating down her right leg. Denies any fall or trauma. Patient had CT abdomen and pelvis completed with hypertension a lumbar spine. There is evidence of worsening metastatic disease. Evidence of an L4 compression fracture. She stating and Hesperus at home as well as been prescribed Robaxin recently with no improvement of symptoms. I discussed there is also some other evidence of bony metastatic disease as well as progressed into the pulmonary metastatic disease. Patient was quite concerned with this. She continues to complain of back pain requiring more pain medication. I discussed the case with the Patient for uncontrolled pain related to her cancer metastatic disease. Patient is agreeable to this plan. We'll consult Dr. Noguera. - Lab Data Result diagrams: 02/24/19 14:45 02/24/19 14:45 Lab Results 02/24/19 02/24/19 02/24/19 Range/Units 14:45 14:45 14:45 WBC 11.6 H (3.8-10.6) k/uL RBC 4.80 (3.80-5.40) m/uL Hgb 12.9 (11.4-16.0) gm/dL Hct 39.8 (34.0-46.0) % MCV 82.9 (80.0-100.0) fL MCH 26.8 (25.0-35.0) pg MCHC 32.3 (31.0-37.0) g/dL RDW 17.7 H (11.5-15.5) % Plt Count 543 H (150-450) k/uL Neutrophils % 82 % Lymphocytes % 10 % Monocytes % 6 % Eosinophils % 1 % Basophils % 0 % Neutrophils # 9.5 H (1.3-7.7) k/uL Lymphocytes # 1.2 (1.0-4.8) k/uL Monocytes # 0.6 (0-1.0) k/uL Eosinophils # 0.1 (0-0.7) k/uL Basophils # 0.1 (0-0.2) k/uL Anisocytosis Slight PT 10.4 (9.0-12.0) sec INR 1.0 (<1.2) APTT 24.7 (22.0-30.0) sec Sodium 136 L (137-145) mmol/L Potassium 4.3 (3.5-5.1) mmol/L Chloride 97 L (98-107) mmol/L Carbon Dioxide 27 (22-30) mmol/L Anion Gap 12 mmol/L BUN 15 (7-17) mg/dL Creatinine 0.69 (0.52-1.04) mg/dL Est GFR (CKD-EPI)AfAm >90 (>60 ml/min/1.73 sqM) Est GFR (CKD-EPI)NonAf >90 (>60 ml/min/1.73 sqM) Glucose 110 H (74-99) mg/dL Calcium 10.1 (8.4-10.2) mg/dL Total Bilirubin 0.7 (0.2-1.3) mg/dL AST 35 (14-36) U/L ALT 17 (9-52) U/L Alkaline Phosphatase 175 H (38-126) U/L Total Protein 8.0 (6.3-8.2) g/dL Albumin 4.5 (3.5-5.0) g/dL Amylase 70 (30-110) U/L Lipase 201 (23-300) U/L Urine Color Urine Appearance (Clear) Urine pH (5.0-8.0) Ur Specific Hewitt (1.001-1.035) Urine Protein (Negative) Urine Glucose (UA) (Negative) Urine Ketones (Negative) Urine Blood (Negative) Urine Nitrite (Negative) Urine Bilirubin (Negative) Urine Urobilinogen (<2.0) mg/dL Ur Leukocyte Esterase (Negative) Urine RBC (0-5) /hpf Urine WBC (0-5) /hpf Ur Squamous Epith Cells (0-4) /hpf Urine Bacteria (None) /hpf Urine Mucus (None) /hpf 02/24/19 Range/Units 16:00 WBC (3.8-10.6) k/uL RBC (3.80-5.40) m/uL Hgb (11.4-16.0) gm/dL Hct (34.0-46.0) % MCV (80.0-100.0) fL MCH (25.0-35.0) pg MCHC (31.0-37.0) g/dL RDW (11.5-15.5) % Plt Count (150-450) k/uL Neutrophils % % Lymphocytes % % Monocytes % % Eosinophils % % Basophils % % Neutrophils # (1.3-7.7) k/uL Lymphocytes # (1.0-4.8) k/uL Monocytes # (0-1.0) k/uL Eosinophils # (0-0.7) k/uL Basophils # (0-0.2) k/uL Anisocytosis PT (9.0-12.0) sec INR (<1.2) APTT (22.0-30.0) sec Sodium (137-145) mmol/L Potassium (3.5-5.1) mmol/L Chloride (98-107) mmol/L Carbon Dioxide (22-30) mmol/L Anion Gap mmol/L BUN (7-17) mg/dL Creatinine (0.52-1.04) mg/dL Est GFR (CKD-EPI)AfAm (>60 ml/min/1.73 sqM) Est GFR (CKD-EPI)NonAf (>60 ml/min/1.73 sqM) Glucose (74-99) mg/dL Calcium (8.4-10.2) mg/dL Total Bilirubin (0.2-1.3) mg/dL AST (14-36) U/L ALT (9-52) U/L Alkaline Phosphatase (38-126) U/L Total Protein (6.3-8.2) g/dL Albumin (3.5-5.0) g/dL Amylase (30-110) U/L Lipase (23-300) U/L Urine Color Yellow Urine Appearance Clear (Clear) Urine pH 5.5 (5.0-8.0) Ur Specific Hewitt >1.050 H (1.001-1.035) Urine Protein Trace H (Negative) Urine Glucose (UA) Negative (Negative) Urine Ketones Negative (Negative) Urine Blood Negative (Negative) Urine Nitrite Negative (Negative) Urine Bilirubin Negative (Negative) Urine Urobilinogen <2.0 (<2.0) mg/dL Ur Leukocyte Esterase Large H (Negative) Urine RBC 6 H (0-5) /hpf Urine WBC 27 H (0-5) /hpf Ur Squamous Epith Cells <1 (0-4) /hpf Urine Bacteria Rare H (None) /hpf Urine Mucus Rare H (None) /hpf 02/24/19 15:43 EKG shows normal sinus rhythm, left axis deviation. Minimal voltage criteria for LVH may be normal variant. Abnormal EKG. Ventricular rate of 81 bpm.. Pulse 160 ms. QRS duration is 68 ms. QT QTc is 382/443 ms. - Radiology Data Radiology results: report reviewed CT abdomen and pelvis shows persistent moderate to severe pathologic compression fracture L4 in retrospect chronic from last 2 studies. Posterior portion is noted. Additional osseous metastatic disease is present. Progression and partially visualized pulmonary metastatic disease noted as well. Is also irregular sclerosis in the right superior acetabulum suspicious for metastatic lesion. Disposition Clinical Impression: Compression fracture of L4 vertebra, Metastasis, Rectal cancer metastasized to bone, Intractable pain Disposition: ADMITTED IP TO THIS HOSP Condition: Stable Is patient prescribed a controlled substance at d/c from ED?: No Referrals: Sharon Askew MD [Primary Care Provider] - 1-2 days Time of Disposition: 17:13
[2019-02-24 15:02] LABS: Anisocytosis Slight; Basophils # (A) 0.1 k/uL (0-0.2); Basophils % (A) 0 %; Eosinophils # (A) 0.1 k/uL (0-0.7); Eosinophils % (A) 1 %; HCT 39.8 % (34.0-46.0); HGB 12.9 gm/dL (11.4-16.0); Lymphocytes # (A) 1.2 k/uL (1.0-4.8); Lymphocytes % (A) 10 %; MCH 26.8 pg (25.0-35.0); MCHC 32.3 g/dL (31.0-37.0); MCV 82.9 fL (80.0-100.0); Mean Platelet Volume 6.5; Monocytes # (A) 0.6 k/uL (0-1.0); Monocytes % (A) 6 %; Neutrophils # (A) 9.5 k/uL (1.3-7.7); Neutrophils % (A) 82 %; Platelet Count 543 k/uL (150-450); RDW 17.7 % (11.5-15.5); WBC 11.6 k/uL (3.8-10.6)
[2019-02-24 15:04] LABS: Partial Thromboplastin Time 24.7 sec (22.0-30.0); Prothrombin Time 10.4 sec (9.0-12.0)
[2019-02-24 15:07] LABS: ALT 17 U/L (9-52); AST 35 U/L (14-36); African American GFR (CKD) >90 (>60 ml/min/1.73 sqM); Albumin 4.5 g/dL (3.5-5.0); Alkaline Phosphatase 175 U/L (38-126); Amylase 70 U/L (30-110); Anion Gap 12 mmol/L; Blood Urea Nitrogen 15 mg/dL (7-17); Calcium 10.1 mg/dL (8.4-10.2); Carbon Dioxide 27 mmol/L (22-30); Chloride 97 mmol/L (98-107); Glucose 110 mg/dL (74-99); Potassium 4.3 mmol/L (3.5-5.1); Sodium 136 mmol/L (137-145); Total Bilirubin 0.7 mg/dL (0.2-1.3)
--- NOTE | 2019-02-24 15:54 | CT ---
EXAMINATION TYPE: CT abdomen pelvis w con DATE OF EXAM: 02/24/2019 HISTORY: Generalized abdominal/back pain. History of rectal cancer. CT DLP: 1216.9mGycm Automated Exposure Control for Dose Reduction was Utilized. CONTRAST: CT scan of the abdomen and pelvis is performed without oral but with IV Contrast, patient injected wi th 100 mL of Isovue 300. COMPARISON: CT chest abdomen and pelvis December 14, 2018 and older CTs. FINDINGS: LUNG BASES: Increasing size and number of nodularity in the visualized lung bases is seen. LIVER/GB: Cholecystectomy clips are redemonstrated. PANCREAS: No significant abnormality is seen. SPLEEN: No significant abnormality is seen. ADRENALS: No significant abnormality is seen. KIDNEYS: No significant abnormality is seen. BOWEL: Evaluation of wall suboptimal secondary to lack of enteric contrast. Stomach is poorly distend ed and thus suboptimally evaluated. There is fluid-filled prominence of the cecum and right colon wit h air-fluid level. Correlate for diarrhea and/or colitis. Mild wall thickening in the left and sigmoi d colon is present. Finding is nonspecific could be related to poor distention. Mild colitis cannot b e excluded. Correlate clinically. UTERUS/ADNEXA: No gross abnormality seen. LYMPH NODES: No greater than 1cm abdominal or pelvic lymph nodes are appreciated. OSSEOUS STRUCTURES: Persistent moderate to severe pathologic chronic compression fracture L3 with mami e posterior retropulsion. There is additional sclerotic metastatic focus left posterior L5 level in r etrospect was present on prior. Mild height loss superior L2 endplate redemonstrated. Partial visuali zation of mixed osseous metastatic lesion T8 level noted. Irregular Sclerosis right superior acetabul um suspicious for additional metastatic lesion. OTHER: Moderate to severe mixed plaque of abdominal aorta extends into branch vessels. 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 Posterior retropulsion noted. Additional osseous metastatic disease is present. Progression in partially visualized pulmonary metastatic disease.
[2019-02-24 16:35] LABS: Appearance,Urine Clear (Clear); Bacteria,Urine Rare /hpf; Bilirubin,Urine Negative (Negative); Blood,Urine Negative (Negative); Color,Urine Yellow; Glucose,Urine (UA) Negative (Negative); Ketones,Urine Negative (Negative); Leukocyte Esterase,Urine Large (Negative); Mucus,Urine Rare /hpf; Nitrite,Urine Negative (Negative); PH, Urine 5.5 (5.0-8.0); Protein,Urine Trace (Negative); RBC,Urine 6 /hpf (0-5); Squamous Epithelial Cell,Urine <1 /hpf (0-4); Urobilinogen,Urine <2.0 mg/dL (<2.0); WBC,Urine 27 /hpf (0-5)
[2019-02-24 16:37] LABS: Specific Gravity,Urine >1.050 (1.001-1.035)
[2019-02-24] MEDS ORDERED: ACETAMINOPHEN TAB 325 MG TAB PO PRN (17:13)
[2019-02-24] MEDS ORDERED: IBUPROFEN 400 MG TAB PO PRN (17:13)
[2019-02-24] MEDS ORDERED: NALOXONE 0.4 MG/ML 1 ML VIAL IV PRN (17:13)
[2019-02-24] MEDS: SODIUM CHLORIDE 0.9% 1,000 ML IV SCH (20:47)
[2019-02-24] MEDS: MORPHINE SULFATE 4 MG/ML SYRINGE IV PRN (20:48)
[2019-02-25] MEDS: KETOROLAC 30 MG/ML 1 ML VIAL IVP PRN ×2 (02:32→20:46)
[2019-02-25] MEDS: MORPHINE SULFATE 4 MG/ML SYRINGE IV PRN ×2 (05:21→09:34)
[2019-02-25] MEDS: SODIUM CHLORIDE 0.9% 1,000 ML IV SCH ×3 (09:35→23:38)
--- NOTE | 2019-02-25 09:48 | P.CNOR ---
History of Present Illness - [facility] Consult date: 02/25/19 Consult reason: low back pain History of present illness: This is a 64-year-old female with history of metastatic colon cancer. She does have history of back pain in the past. She states that her back pain became more severe and presented to the emergency department for evaluation. She is found to have a compression deformity to L3 and possibly to T8. She is admitted to internal medicine and we're consulted for orthopedic evaluation. She denies any numbness or tingling down the legs. She denies bowel or bladder dysfunction. Past Medical History Past Medical History: Cancer, Hypertension, Osteoarthritis (OA) Additional Past Medical History / Comment(s): RECTAL CANCER,SPOTS ON LUNGS AND LIVER" History of Any Multi-Drug Resistant Organisms: None Reported Past Surgical History: Section, Cholecystectomy Additional Past Surgical History / Comment(s): COLONOSCOPY Past Anesthesia/Blood Transfusion Reactions: Postoperative Nausea & Vomiting (PONV) Additional Past Anesthesia/Blood Transfusion Reaction / Comm: CLAUSTROPHOBIA Past Psychological History: No Psychological Hx Reported Additional Psychological History / Comment(s): HX OF CLAUSTROPHOBIA Smoking Status: Former smoker Past Alcohol Use History: None Reported Additional Past Alcohol Use History / Comment(s): STARTED SMOKING AT AGE 13 QUIT AT AGE 58 SMOKED 1PPD Past Drug Use History: None Reported - Past Family History Mother Family Medical History: Cancer Father Family Medical History: Cancer Sister(s) Family Medical History: Deep Vein Thrombosis (DVT) Medications and Allergies Home Medications Medication Instructions Recorded Confirmed Type HYDROcodone/APAP 7.5-325MG [[place] 1 tab PO Q8H 12/15/18 02/24/19 History 7.5-325] Hydrochlorothiazide [Hydrodiuril] 12.5 mg PO DAILY 12/15/18 02/24/19 History Lisinopril [Zestril] 20 mg PO DAILY 02/24/19 02/24/19 History Allergies Allergy/AdvReac Type Severity Reaction Status Date / Time bee venom protein (honey bee) Allergy Swelling Verified 02/24/19 14:02 Physical Examination This is a 64-year-old female in no acute distress. She is alert and oriented 3. Exam of the head neck reveal no obvious deformity. He has fairly good cervical spine motion without difficulty or pain. Exam of the upper extremities reveals no obvious deformity. She has fairly good shoulder, elbow, wrist and finger motion bilaterally. Neurovascular status to the upper extremities is intact. Exam of the thoracic and lumbar spine reveal no obvious deformity. There is tenderness with palpation about the mid to lower thoracic spine. There is tenderness about the mid lumbar spine and paraspinal musculature. Exam the lower extremities reveals no shortening or rotational deformity. She is able to lift each leg off the bed independently. Full range of motion of the knee. Full foot and ankle motion bilaterally. Pedal pulses are +2/4. Neurovascular status to the lower extremities is intact. Results CT of the abdomen and pelvis reveals a compression deformity to L3 with moderate retropulsion. No other compression deformities noted to the visualized the thoracic or lumbar spine. - Labs Labs: Abnormal Lab Results - Last 24 Hours (Table) 02/24/19 02/24/19 02/24/19 Range/Units 14:45 14:45 16:00 WBC 11.6 H (3.8-10.6) k/uL RDW 17.7 H (11.5-15.5) % Plt Count 543 H (150-450) k/uL Neutrophils # 9.5 H (1.3-7.7) k/uL Sodium 136 L (137-145) mmol/L Chloride 97 L (98-107) mmol/L Glucose 110 H (74-99) mg/dL Alkaline Phosphatase 175 H (38-126) U/L Ur Specific [place] >1.050 H (1.001-1.035) Urine Protein Trace H (Negative) Ur Leukocyte Esterase Large H (Negative) Urine RBC 6 H (0-5) /hpf Urine WBC 27 H (0-5) /hpf Urine Bacteria Rare H (None) /hpf Urine Mucus Rare H (None) /hpf H & H 02/24/19 Range/Units 14:45 Hgb 12.9 (11.4-16.0) gm/dL Hct 39.8 (34.0-46.0) % Coagulation 02/24/19 Range/Units 14:45 INR 1.0 (<1.2) Result Diagrams: 02/24/19 14:45 02/24/19 14:45 Assessment and Plan (1) Compression fracture of L3 vertebra Current Visit: Yes Status: Acute Code(s): S32.030A - WEDGE COMPRESSION FRACTURE OF THIRD LUMBAR VERTEBRA, INIT SNOMED Code(s): 827848134 (2) Metastasis Current Visit: Yes Status: Acute Code(s): C79.9 - SECONDARY MALIGNANT NEOPLASM OF UNSPECIFIED SITE SNOMED Code(s): 291198720 (3) Rectal cancer metastasized to bone Current Visit: Yes Status: Acute Code(s): C20 - MALIGNANT NEOPLASM OF RECTUM; C79.51 - SECONDARY MALIGNANT NEOPLASM OF BONE SNOMED Code(s): 672084148 Plan: The clinical and radiographic findings are discussed the patient. I've discussed the case with Dr. Navarro who recommends plain films of the lumbar spine. I will also obtain thoracic spine films with her tenderness to the area. I ordered an LSO brace for comfort. Dr. Navarro will review her films and make further recommendations as indicated.
[2019-02-25] MEDS ORDERED: POLYETHYLENE GLYCOL 3350 17 GM POWD.PACK PO PRN ×2 (09:51→11:26)
[2019-02-25] MEDS: LISINOPRIL 20 MG TAB PO SCH (10:02)
--- NOTE | 2019-02-25 11:27 | P.HPIM ---
History of Present Illness 64-year-old pleasant female with metastatic colon cancer receiving chemotherapy which is being temporally held because of the side effects came in after a fall 3 days ago found to have compression fracture at L4 patient was comparing of severe back pain radiating to the legs. CAT scan of the abdomen pelvis was suspicious for progression of cancer in the lungs because of which the oncology wanted a MRI but patient declined to get an MRI at this time. Patient denied any bowel or bladder incontinence patient denied any increased weakness in the legs except for radiating pain into both legs because of sciatic nerve compression. Patient is presently on morphine, ibuprofen. Along with GI prophylaxis. Physical therapy occupational therapy will evaluate the patient. Review of Systems REVIEW OF SYSTEMS: CONSTITUTIONAL: No fever, no malaise, no fatigue. HEENT: No recent visual problems or hearing problems. Denied any sore throat. CARDIOVASCULAR: No chest pain, orthopnea, PND, no palpitations, no syncope. PULMONARY: No shortness of breath, no cough, no hemoptysis. GASTROINTESTINAL: No diarrhea, no nausea, no vomiting, no abdominal pain. NEUROLOGICAL: No headaches, no weakness, no numbness. HEMATOLOGICAL: Denies any bleeding or petechiae. GENITOURINARY: Denies any burning micturition, frequency, or urgency. MUSCULOSKELETAL/RHEUMATOLOGICAL: Back pain as mentioned above ENDOCRINE: Denies any polyuria or polydipsia. The rest of the 14-point review of systems is negative. Past Medical History Past Medical History: Cancer, Hypertension, Osteoarthritis (OA) Additional Past Medical History / Comment(s): RECTAL CANCER,SPOTS ON LUNGS AND LIVER" History of Any Multi-Drug Resistant Organisms: None Reported Past Surgical History: Section, Cholecystectomy Additional Past Surgical History / Comment(s): COLONOSCOPY Past Anesthesia/Blood Transfusion Reactions: Postoperative Nausea & Vomiting (PONV) Additional Past Anesthesia/Blood Transfusion Reaction / Comment(s): CLAUSTROPHOBIA Past Psychological History: No Psychological Hx Reported Additional Psychological History / Comment(s): HX OF CLAUSTROPHOBIA Smoking Status: Former smoker Past Alcohol Use History: None Reported Additional Past Alcohol Use History / Comment(s): STARTED SMOKING AT AGE 13 QUIT AT AGE 58 SMOKED 1PPD Past Drug Use History: None Reported - Past Family History Mother Family Medical History: Cancer Father Family Medical History: Cancer Sister(s) Family Medical History: Deep Vein Thrombosis (DVT) Medications and Allergies Home Medications Medication Instructions Recorded Confirmed Type HYDROcodone/APAP 7.5-325MG [[place] 1 tab PO Q8H 12/15/18 02/24/19 History 7.5-325] Hydrochlorothiazide [Hydrodiuril] 12.5 mg PO DAILY 12/15/18 02/24/19 History Lisinopril [Zestril] 20 mg PO DAILY 02/24/19 02/24/19 History Allergies Allergy/AdvReac Type Severity Reaction Status Date / Time bee venom protein (honey bee) Allergy Swelling Verified 02/24/19 14:02 Physical Exam Vitals: Vital Signs Temp Pulse Pulse Resp BP BP Pulse Ox 02/25/19 07:10 16 02/25/19 05:00 98.5 F 62 16 135/86 99 02/24/19 19:27 98.3 F 16 139/78 98 02/24/19 19:09 98.6 F 75 18 150/92 98 02/24/19 17:00 78 20 138/94 95 02/24/19 13:04 99.3 F 100 16 112/80 100 Intake and Output 02/24/19 02/25/19 02/25/19 22:59 06:59 14:59 Intake Total 100 800 Balance 100 800 Intake: Intake, IV Titration 100 800 Amount Sodium Chloride 0.9% 1, 100 800 000 ml @ 100 mls/hr IV . Q10H [facility] Rx#:[id number] Other: Voiding Method Toilet Toilet # Voids 1 PHYSICAL EXAMINATION: GENERAL: The patient is alert and oriented x3, not in any acute distress. Well developed, well nourished. HEENT: Pupils are round and equally reacting to light. EOMI. No scleral icterus. No conjunctival pallor. Normocephalic, atraumatic. No pharyngeal erythema. No thyromegaly. CARDIOVASCULAR: S1 and S2 present. No murmurs, rubs, or gallops. PULMONARY: Chest is clear to auscultation, no wheezing or crackles. ABDOMEN: Soft, nontender, nondistended, normoactive bowel sounds. No palpable organomegaly. MUSCULOSKELETAL: Deferred to orthopedic surgery EXTREMITIES: No cyanosis, clubbing, or pedal edema. NEUROLOGICAL: Gross neurological examination did not reveal any focal deficits. SKIN: No rashes. Results CBC & Chem 7: 02/24/19 14:45 02/24/19 14:45 Labs: Abnormal Lab Results - Last 24 Hours (Table) 02/24/19 02/24/19 02/24/19 Range/Units 14:45 14:45 16:00 WBC 11.6 H (3.8-10.6) k/uL RDW 17.7 H (11.5-15.5) % Plt Count 543 H (150-450) k/uL Neutrophils # 9.5 H (1.3-7.7) k/uL Sodium 136 L (137-145) mmol/L Chloride 97 L (98-107) mmol/L Glucose 110 H (74-99) mg/dL Alkaline Phosphatase 175 H (38-126) U/L Ur Specific [place] >1.050 H (1.001-1.035) Urine Protein Trace H (Negative) Ur Leukocyte Esterase Large H (Negative) Urine RBC 6 H (0-5) /hpf Urine WBC 27 H (0-5) /hpf Urine Bacteria Rare H (None) /hpf Urine Mucus Rare H (None) /hpf Thrombosis Risk Factor Assmnt - Choose All That Apply Any of the Below Risk Factors Present?: Yes Each Factor Represents 1 point: Age 41-60 years, Obesity (BMI >25) Other Risk Factors: Yes Each Risk Factor Represents 2 Points: Malignancy Other congenital or acquired thrombophilia - If yes, enter type in comment: No Thrombosis Risk Factor Assessment Total Risk Factor Score: 4 Thrombosis Risk Factor Assessment Level: Moderate Risk Assessment and Plan Plan: -Back pain severe acute secondary to compression fracture at L4, patient will need a brace orthopedic surgery evaluated the patient. Physical therapy and patient is a fever consultation pain management as mentioned above -Metastatic colon cancer oncology was consulted for the management as per them as mentioned above -Hypertension lisinopril will be resumed -DVT prophylaxis with subcutaneous heparin GI prophylaxis with the Pepcid
--- NOTE | 2019-02-25 12:46 | XR ---
EXAMINATION TYPE: XR thoracic spine 2V DATE OF EXAM: 02/25/2019 CLINICAL HISTORY: Mid back pain TECHNIQUE: Frontal, lateral, and swimmer's view of thoracic spine are obtained. COMPARISON: None. FINDINGS: Thoracic spine show satisfactory alignment without evidence of acute fracture or dislocatio n. Vertebral body heights are preserved however there is multilevel intervertebral disc space narrow ing and small anterior osteophytes with multilevel endplate sclerosis. The visualized ribs are unrema rkable. Calcified splenic artery in the left upper quadrant. Partial visualization of the right Med iport. Surgical clips from prior cholecystectomy. Overall low lung volumes. Patchy opacities are seen within the lungs relating to the patient's known bilateral pulmonary nodules. IMPRESSION: No acute fracture or dislocation is seen in the thoracic spine. Moderate multilevel dege nerative disc disease.
--- NOTE | 2019-02-25 12:49 | XR ---
EXAMINATION TYPE: XR lumbar spine 2 or 3V DATE OF EXAM: 02/25/2019 CLINICAL HISTORY: Back pain TECHNIQUE: Frontal and lateral images of the lumbar spine are obtained. COMPARISON: CT dated 02/24/2019 FINDINGS: There are compression deformities of the L3 and L4 vertebral bodies is seen on the prior. T he known metastatic lesion at L5 is better seen on the prior exam. Atherosclerosis of the abdominal a rebel is seen. There is moderate degenerative disc disease of the lumbar spine. There is minimal retro listhesis of L3 on L4 (1 mm). Cholecystectomy clips are noted. Atherosclerosis of the splenic artery seen. IMPRESSION: Redemonstration of chronic known compression deformities of L3 and L4. Metastatic disease in the L5 is better seen on CT.
[2019-02-25] MEDS: HYDROcodone/APAP 7.5-325MG 1 EACH TAB PO SCH ×2 (12:55→17:39)
--- NOTE | 2019-02-25 14:05 | P.CONS ---
History of Present Illness - Reason for Consult Consult date: 02/25/19 metastatic rectal cancer Requesting physician: Francisca Pizarro - Chief Complaint pain - History of Present Illness Very Pleasant female originally diagnosed with metastatic rectal cancer in November 2016. Her diagnosis was made in [place] when she originally presented with weight loss and diarrhea underwent a colonoscopy on December 19 and was found to have suspicious nonobstructing rectal mass biopsy showed positive for invasive adenocarcinoma K-manan positive. CAT scan of chest abdomen pelvis at that time revealed large rectal mass with multiple bilateral multiple lung nodules largest up to 3.4 cm in that right upper lung also revealed subcentimeter liver lesions at that time her baseline CEA was 149 she received concurrent chemotherapy and radiation with Xeloda to the pelvis completed in March 2017 she continued on Xeloda 1000 mg twice a day one week on 1 week off and scans continued to show stable disease although in May 2017 computed tomography scan of the spine revealed destructive lesion at L3 and which she originally presented with significant pain she underwent radiation palliatively at that time. she was treated with FOLFOx 05/2018, progressive disease in 07/2018 therefore regimen switched to FOLFIRI with AvastiN IN august 2018 Although patient refused pump and was treated with Xeloda in place of 5FU. Xeloda has since been discontinued and her chemotherapy has been on hold for recent fall and fracture. She states 4-5 norco a day are not helping her pain. Review of Systems A 14 point review of systems was assessed and completed and are all negative except for HPI Past Medical History Past Medical History: Cancer, Hypertension, Osteoarthritis (OA) Additional Past Medical History / Comment(s): RECTAL CANCER,SPOTS ON LUNGS AND LIVER" History of Any Multi-Drug Resistant Organisms: None Reported Past Surgical History: Section, Cholecystectomy Additional Past Surgical History / Comment(s): COLONOSCOPY Past Anesthesia/Blood Transfusion Reactions: Postoperative Nausea & Vomiting (PONV) Additional Past Anesthesia/Blood Transfusion Reaction / Comm: CLAUSTROPHOBIA Past Psychological History: No Psychological Hx Reported Additional Psychological History / Comment(s): HX OF CLAUSTROPHOBIA Smoking Status: Former smoker Past Alcohol Use History: None Reported Additional Past Alcohol Use History / Comment(s): STARTED SMOKING AT AGE 13 QUIT AT AGE 58 SMOKED 1PPD Past Drug Use History: None Reported - Past Family History Mother Family Medical History: Cancer Father Family Medical History: Cancer Sister(s) Family Medical History: Deep Vein Thrombosis (DVT) Medications and Allergies Home Medications Medication Instructions Recorded Confirmed Type HYDROcodone/APAP 7.5-325MG [Tad 1 tab PO Q8H 12/15/18 02/24/19 History 7.5-325] Hydrochlorothiazide [Hydrodiuril] 12.5 mg PO DAILY 12/15/18 02/24/19 History Lisinopril [Zestril] 20 mg PO DAILY 02/24/19 02/24/19 History Allergies Allergy/AdvReac Type Severity Reaction Status Date / Time bee venom protein (honey bee) Allergy Swelling Verified 02/24/19 14:02 Physical Exam Vitals: Vital Signs Temp Pulse Pulse Resp BP BP Pulse Ox 02/25/19 07:10 16 02/25/19 05:00 98.5 F 62 16 135/86 99 02/24/19 19:27 98.3 F 16 139/78 98 02/24/19 19:09 98.6 F 75 18 150/92 98 02/24/19 17:00 78 20 138/94 95 02/24/19 13:04 99.3 F 100 16 112/80 100 Intake and Output 02/24/19 02/25/19 02/25/19 22:59 06:59 14:59 Intake Total 100 800 Balance 100 800 Intake: Intake, IV Titration 100 800 Amount Sodium Chloride 0.9% 1, 100 800 000 ml @ 100 mls/hr IV . Q10H [facility] Rx#:[id number] Other: Voiding Method Toilet Toilet # Voids 1 General: Alert and Oriented x3, No Acute Distress Head: Normocytic, Atraumatic Neck: Supple Mouth: No Lesions, No Thrush Eyes: Non-sclerotic No Palpable cervical, supraclavicular, axillary adenopathy Heart: Regular Rate, Regular Rhythm Lungs: Clear to Ausculations, No Wheeze, No Rhonchi, Diminishe bilateral lower lobes, No increased respiratory effort noted Abdomen: Soft, Non-Distended, Non-Tended, BSx4 Extremities: No Edema, Equal Strength Neurological: No Focal Defects: No sensory or motor deficits noted Psych: Calm and cooperative tenderness to lower back if palpated, no unilateral weakness noted Results CBC & Chem 7: 02/24/19 14:45 02/24/19 14:45 Labs: Abnormal Lab Results - Last 24 Hours (Table) 02/24/19 02/24/19 02/24/19 Range/Units 14:45 14:45 16:00 WBC 11.6 H (3.8-10.6) k/uL RDW 17.7 H (11.5-15.5) % Plt Count 543 H (150-450) k/uL Neutrophils # 9.5 H (1.3-7.7) k/uL Sodium 136 L (137-145) mmol/L Chloride 97 L (98-107) mmol/L Glucose 110 H (74-99) mg/dL Alkaline Phosphatase 175 H (38-126) U/L Ur Specific [place] >1.050 H (1.001-1.035) Urine Protein Trace H (Negative) Ur Leukocyte Esterase Large H (Negative) Urine RBC 6 H (0-5) /hpf Urine WBC 27 H (0-5) /hpf Urine Bacteria Rare H (None) /hpf Urine Mucus Rare H (None) /hpf Assessment and Plan Plan: Metastatic Rectal cancer - ?Progression: - On hold currently will follow-up with Dr. Noguera as outpatient for plan Recent Fall with Not L4 Fracture - Refuses MRI at this time Neoplastic Related pain: - Not controled on Tad alone - Add low dose fentanyl patch - PRN Toradal Physician Attestation: I have performed the full physical examination and reviewed the full history of this patient, as well as pertinent findings. I have created the compled impression and recommendations. I agree with the above dictation by KANIKA Ellis. This dictation has been written as a scribe.
[2019-02-25] MEDS: HEPARIN SODIUM,PORCINE 5,000 UNIT/ML 1 ML VIAL SQ SCH ×2 (16:23→20:45)
[2019-02-25] MEDS: FAMOTIDINE 20 MG TAB PO SCH (20:45)
[2019-02-26] MEDS: HYDROcodone/APAP 7.5-325MG 1 EACH TAB PO SCH ×2 (02:30→09:33)
[2019-02-26] MEDS: HEPARIN SODIUM,PORCINE 5,000 UNIT/ML 1 ML VIAL SQ SCH ×3 (08:30→23:55)
[2019-02-26] MEDS: MORPHINE SULFATE 4 MG/ML SYRINGE IV PRN (08:30)
[2019-02-26] MEDS: FAMOTIDINE 20 MG TAB PO SCH ×2 (08:32→20:33)
[2019-02-26] MEDS: LISINOPRIL 20 MG TAB PO SCH (08:36)
--- NOTE | 2019-02-26 09:20 | P.PN ---
Progress Note - Text Patient history: Patient is a very pleasant 64-year-old female who is seen today at the bedside for follow-up evaluation with her family present. Since being seen him yesterday she has not had any significant change in her symptoms. Her most significant symptoms are mid to lower thoracic back pain and right lower extremity radiculopathy. She has pain that radiates from the lumbar spine, down the lateral thigh over the right knee. She occasionally has some pain that radiates down the right leg towards the great toe. She denies any lower extremity weakness bilaterally. She denies any left lower extremity radiculopathy. She does have a dull ache at her lumbar spine. She states she is known to have colon cancer with some metastasis to the liver and lungs. She has been on chemotherapy and has undergone some radiation over the past 3 years. She was originally diagnosed and treated in [place]. Since moving to [place] she has been following with Dr. Noguera and Dr. Mckeon. She states she was taken off chemotherapy approximately 5 weeks ago as she was having significant diarrhea. Then approximately 3-4 weeks ago she had a fall falling on her buttocks in the shower. She feels her back pain has been worse since that time. After being seen and examined yesterday, a TLSO brace was ordered. This brace has not been delivered over fitted. Multiple imaging modalities including CT and x-ray imaging were taken since her presentation to the hospital. MRI imaging was ordered yesterday but the patient states she cannot tolerate an MRI tube due to claustrophobia. She states at the bedside she may be willing to have MRI imaging in the outpatient setting and an open MRI machine. Patient also has a history of hypertension Physical exam: Patient is awake, alert, and oriented 3 Vital signs stable Good chest excursion with deep inspiration and expiration Examination of thoracic and lumbar spine reveals skin is intact with no abrasions, lacerations, or bruises; no erythema, purulence or signs of infection Pain with palpation along the midline of the mid to lower thoracic spine No significant pain with palpation over the lumbar spine Dorsiflexion, plantarflexion, and extensor hallucis longus positive sustained bilaterally Lower extremity strength 5/5 bilaterally Straight leg test negative bilateral lower extremities No signs or symptoms of DVT; no calf pain No pain with internal and external rotation of the hips bilaterally; some discomfort at the right lateral thigh with internal rotation of the right hip Neurovascularly intact Pertinent studies: CT of the abdomen and pelvis taken on 02/24/2019: Compression fracture deformities at L2 with approximately 25% height loss and L3 with approximately 15% height loss: L3 compression fracture deformity with approximately 50% height loss centrally which appears pathologic; pathologic bony change at L5; partially visualized T8 osseous metastatic lesion X-rays of the thoracic and lumbar spine taken on 02/25/2019: Redemonstrated compression fracture deformities at L2, L3, and L4 which appear stable as compared to recent CT imaging; L3 compression fracture deformity appears severe and pathologic; difficulty visualizing metastatic lesion visible on CT imaging; x-ray report reads negative thoracic x-rays for fracture but reviewing of imaging shows potential bony change at approximately T8; thoracic degenerative disc disease and kyphosis Assessment: Metastatic rectal cancer History of chemotherapy and radiation Recent fall Thoracic back pain Right lower extremity radiculopathy Multiple compression fracture deformities at L2, L3, and L4 T8 partially visualized osseous metastatic lesion and likely fracture L3 pathologic fracture L5 pathologic bony change Thoracic degenerative disc disease and kyphosis Hypertension Plan: 1. After reviewing of imaging, physical examination the patient and a long discussion with the patient and her family, at this time we will not currently plan for further workup in the inpatient setting. We did discuss the importance of MRI imaging in regards to her thoracic and lumbar spines. Patient is significantly claustrophobic and refuses inpatient MRI imaging. She states she would be willing to have this MRI imaging performed in the outpatient setting at an open MRI machine and with some medicine for her claustrophobia. We discussed from a orthopedic spine standpoint, she could be cleared for discharge and we will plan to have her follow-up in the outpatient setting in approximately 2-3 weeks for further evaluation following the completion of her thoracic and lumbar MRI imaging. She continues to follow with oncology. It will be okay for oncology to order this MRI imaging in the outpatient setting as it was ordered by Dr. Bryson in the inpatient setting yesterday. Patient also has evidence of bony change at T8 and also has pain with palpation at approximately T8. She was prescribed a TLSO brace. This brace has not been yet delivered. Once this brace is delivered and fitted properly, we discussed patient should wear this brace while sitting upright at greater than 45, during increase activities, and during ambulation. Brace is not have to be worn while lying in bed or while bathing. Patient should avoid excessive bending, twisting, lifting; no lifting greater than 10 pounds. Once this brace is delivered and fitted properly, patient is clear for discharge from an orthopedic spine standpoint. Following discharge, patient may follow-up with Uri Ramírez PA-C or Dr. Drew Navarro at [facility] in approximately 2-3 weeks for further evaluation following the completion of her thoracic and lumbar MRI imaging. 2. Patient will continue to be seeing examined by other medical providers including oncology, medicine, and oncology radiation
[2019-02-26] MEDS: KETOROLAC 30 MG/ML 1 ML VIAL IVP PRN (13:04)
[2019-02-26] MEDS: SODIUM CHLORIDE 0.9% 1,000 ML IV SCH (13:04)
--- NOTE | 2019-02-26 13:18 | P.PN ---
Subjective Progress Note Date: 02/26/19 Principal diagnosis: 64-year-old pleasant female with metastatic colon cancer receiving chemotherapy which is being temporally held because of the side effects came in after a fall 3 days ago found to have compression fracture at L4 patient was complaining of severe back pain radiating to the legs. CAT scan of the abdomen pelvis was suspicious for progression of cancer in the lungs because of which the oncology wanted a MRI but patient declined to get an MRI at this time. Patient denied any bowel or bladder incontinence patient denied any increased weakness in the legs except for radiating pain into both legs because of sciatic nerve compression. Patient is presently on morphine, ibuprofen. Along with GI prophylaxis. Physical therapy occupational therapy will evaluate the patient. 02/26/2019 Patient is currently up walking the halls with physical therapy and doing well. Patient is refusing a former rehab facility upon discharge and would like to go home. She would like to get better pain control prior to discharge. Will increase [place] and patient is currently using fentanyl patch. Will continue to monitor. Patient denies any chest pain, shortness of breath, or palpitations at this time. Patient is afebrile. Patient denies any nausea or vomiting and is tolerating diet. Patient states that she has chronic back, hip, and leg pain. Patient is currently awaiting a brace that was ordered for her continuous back pain per orthopedic surgery. Objective - Vital Signs Vital signs: Vital Signs Temp 99 F 02/26/19 11:39 Pulse 66 02/26/19 11:39 Resp 16 02/26/19 11:39 BP 130/84 02/26/19 11:39 Pulse Ox 98 02/26/19 11:39 Intake & Output 02/25/19 02/26/19 02/26/19 18:59 06:59 18:59 Intake Total 1020 Balance 1020 Intake: Intake, IV Titration 600 Amount Sodium Chloride 0.9% 1, 600 000 ml @ 100 mls/hr IV . Q10H [facility] Rx#:[id number] Oral 420 Other: Voiding Method Toilet Toilet Toilet # Voids 2 2 - Exam GENERAL: The patient is alert and oriented x3, not in any acute distress. Well developed, well nourished. Vital signs are stable. Temp is 97.9F, pulse is 69, respirations are 16, blood pressure is 123/68, oxygen saturation is 98% on room air. HEENT: Pupils are round and equally reacting to light. EOMI. No scleral icterus. No conjunctival pallor. Normocephalic, atraumatic. No pharyngeal erythema. No thyromegaly. CARDIOVASCULAR: S1 and S2 present. No murmurs, rubs, or gallops. PULMONARY: Chest is clear to auscultation, no wheezing or crackles. ABDOMEN: Soft, nontender, nondistended, normoactive bowel sounds. No palpable organomegaly. MUSCULOSKELETAL: Deferred to orthopedic surgery EXTREMITIES: No cyanosis, clubbing, or pedal edema. NEUROLOGICAL: Gross neurological examination did not reveal any focal deficits. Gait is steady SKIN: No rashes. - Labs CBC & Chem 7: 02/24/19 14:45 02/24/19 14:45 Assessment and Plan Assessment: -Back pain severe acute secondary to compression fracture at L4, patient will need a brace orthopedic surgery evaluated the patient. Physical therapy and consultation pain management as mentioned above -Metastatic colon cancer oncology was consulted for the management as per them as mentioned above -Hypertension lisinopril will be resumed -DVT prophylaxis with subcutaneous heparin -GI prophylaxis with the Pepcid Recommendations and discussion: Recommend continue current medications, management, and symptomatic treatment. Increase the [place] strength for better pain control as well as patient was given fentanyl patches. Will continue to monitor closely. Guarded prognosis. Further recommendations to follow. Probable discharge in 24 hours.
--- NOTE | 2019-02-26 14:20 | P.PN ---
Subjective Progress Note Date: 02/26/19 Principal diagnosis: Pain secondary to pathological fracture Fentanyl patch started yesterday, she did work with PT/OT and pain a little better today although states could be better prior to discharge. Back brace arrival today too. Objective - Vital Signs Vital signs: Vital Signs Temp 99 F 02/26/19 11:39 Pulse 66 02/26/19 11:39 Resp 16 02/26/19 11:39 BP 130/84 02/26/19 11:39 Pulse Ox 98 02/26/19 11:39 Intake & Output 02/25/19 02/26/19 02/26/19 18:59 06:59 18:59 Intake Total 1020 1750 Balance 1020 1750 Intake: Intake, IV Titration 600 800 Amount Sodium Chloride 0.9% 1, 600 800 000 ml @ 100 mls/hr IV . Q10H [facility] Rx#:[id number] Oral 420 950 Other: Voiding Method Toilet Toilet Toilet # Voids 2 2 4 # Bowel Movements 2 - Exam General: Alert and Oriented x3, No Acute Distress Head: Normocytic, Atraumatic Neck: Supple Mouth: No Lesions, No Thrush Eyes: Non-sclerotic No Palpable cervical, supraclavicular, axillary adenopathy Heart: Regular Rate, Regular Rhythm Lungs: Clear to Ausculations, No Wheeze, No Rhonchi, Diminishe bilateral lower lobes, No increased respiratory effort noted Abdomen: Soft, Non-Distended, Non-Tended, BSx4 Extremities: No Edema, Equal Strength Neurological: No Focal Defects: No sensory or motor deficits noted Psych: Calm and cooperative tenderness to lower back if palpated, no unilateral weakness noted - Labs CBC & Chem 7: 02/24/19 14:45 02/24/19 14:45 Assessment and Plan Plan: Metastatic Rectal cancer - ?Progression: - On hold currently will follow-up with Dr. Noguera as outpatient for plan Recent Fall with Not L4 Fracture - Refuses inpatient MRI at this time 0- Will have outpatient open MRI Neoplastic Related pain: - Not controled on [place] alone - Add low dose fentanyl patch - PRN Toradal Physician Attestation: I have performed the full physical examination and reviewed the full history of this patient, as well as pertinent findings. I have created the compled impression and recommendations. I agree with the above dictation by KANIKA Ellis. This dictation has been written as a scribe.
--- NOTE | 2019-02-26 16:23 | P.CONS ---
History of Present Illness - Reason for Consult Consult date: 02/26/19 Lumbar back pain secondary to metastatic disease Requesting physician: Ryan Bryson - Chief Complaint "My upper/lower back hurts" - History of Present Illness Radha is a pleasant 64 year old with metastatic rectal cancer who presents with complaints of progressive back pain most recently exacerbated after a fall in the bathtub. The patient's oncologic history began in November 2016, when she was diagnosed with moderately differentiated adenocarcinoma of the rectum found secondary to rectal bleeding. A CT scan of the chest, abdomen and pelvis performed on December 27 revealed multiple bilateral pulmonary nodules, with the largest measuring 3.4 cm in the right upper lobe, and a 2.3 cm right hilar nodule. There are multiple subcentimeter hepatic densities, too small to characterize. She had a 5 x 6 cm rectal mass extending 6 cm along the rectal length, and pretreatment CEA was found to be 150. She reportedly underwent chemoradiation with Xeloda directed to the pelvis finishing on March 03, 2017 for a total of 15 fractions. Secondary to progressive lumbar back pain she was treated with palliative XRT complete 06/2017. She noted significant improvement in her pain since that time. She has been on multiple systemic regimens since that time. She presented to the ED with progressive back pain. Imaging identified a stable compression fracture at L3 and lyic lesions in t8/L4. She denies numbness, bowel, or bladder dysfunction. She notes this pain is occuring all that time and not exacerbated by weight bearing. Review of Systems Constitutional: Reports as per HPI Past Medical History Past Medical History: Cancer, Hypertension, Osteoarthritis (OA) Additional Past Medical History / Comment(s): RECTAL CANCER,SPOTS ON LUNGS AND LIVER" History of Any Multi-Drug Resistant Organisms: None Reported Past Surgical History: Section, Cholecystectomy Additional Past Surgical History / Comment(s): COLONOSCOPY Past Anesthesia/Blood Transfusion Reactions: Postoperative Nausea & Vomiting (PONV) Additional Past Anesthesia/Blood Transfusion Reaction / Comm: CLAUSTROPHOBIA Past Psychological History: No Psychological Hx Reported Additional Psychological History / Comment(s): HX OF CLAUSTROPHOBIA Smoking Status: Former smoker Past Alcohol Use History: None Reported Additional Past Alcohol Use History / Comment(s): STARTED SMOKING AT AGE 13 QUIT AT AGE 58 SMOKED 1PPD Past Drug Use History: None Reported - Past Family History Mother Family Medical History: Cancer Father Family Medical History: Cancer Sister(s) Family Medical History: Deep Vein Thrombosis (DVT) Medications and Allergies Home Medications Medication Instructions Recorded Confirmed Type HYDROcodone/APAP 7.5-325MG [[place] 1 tab PO Q8H 12/15/18 02/24/19 History 7.5-325] Hydrochlorothiazide [Hydrodiuril] 12.5 mg PO DAILY 12/15/18 02/24/19 History Lisinopril [Zestril] 20 mg PO DAILY 02/24/19 02/24/19 History Famotidine [Pepcid] 20 mg PO BID 30 Days #60 tab 02/26/19 Rx HYDROcodone/APAP 10-325MG [[place] 1 each PO Q8H PRN #12 tab 02/26/19 Rx 10-325] Ibuprofen [Motrin] 400 mg PO Q6HR PRN tab 02/26/19 Rx fentaNYL 25MCG/HR PATCH [Duragesic 1 patch TRANSDERM Q72H #3 patch 02/26/19 Rx 25MCG/HR] Allergies Allergy/AdvReac Type Severity Reaction Status Date / Time bee venom protein (honey bee) Allergy Swelling Verified 02/24/19 14:02 Physical Exam Vitals: Vital Signs Temp Pulse Pulse Resp BP BP Pulse Ox 02/26/19 11:39 99 F 66 16 130/84 98 02/26/19 07:20 16 02/26/19 05:00 97.9 F 69 16 123/68 98 02/26/19 00:00 67 65 16 02/25/19 21:00 97.6 F 67 16 106/59 95 02/25/19 16:54 16 Intake and Output 02/26/19 02/26/19 02/26/19 06:59 14:59 22:59 Intake Total 1020 1750 Balance 1020 1750 Intake: Intake, IV Titration 600 800 Amount Sodium Chloride 0.9% 1, 600 800 000 ml @ 100 mls/hr IV . Q10H [facility] Rx#:[id number] Oral 420 950 Other: Voiding Method Toilet Toilet # Voids 2 4 # Bowel Movements 2 - Constitutional General appearance: average body habitus - Neck Neck: normal ROM - Respiratory Respiratory: bilateral: CTA - Cardiovascular Rhythm: regular - Neurologic Neurologic: CNII-XII intact - Musculoskeletal Musculoskeletal: gait normal Results CBC & Chem 7: 02/24/19 14:45 02/24/19 14:45 Assessment and Plan Assessment: Radha Cobb is a 64 year old with heavily pretreated metastatic colorectal cancer. Most recent imaging idenitifes a metastasis at T8/L4 both sites where she notes significant pain. She is currently on [place] nad PRN toradol with improving pain control. She did begin to ambulate more this morning. Plan: Pain control continues to be optimized. Fentanyl patch/[place]/PRN Toradol. No evidence of cord compression. TLSO brace ordered. Pt a candidate for additional palliative XRT. Out patient appointment given. Open MRI's to be performed as an outpatient for subsequent consideration by orthopaedics for kyphoplasty. Tremaine Jamison M.D.
[2019-02-26] MEDS: HYDROcodone/APAP 10-325MG 1 EACH TAB PO PRN ×2 (17:56→23:54)
[2019-02-27] MEDS: SODIUM CHLORIDE 0.9% 1,000 ML IV SCH ×2 (03:18→08:13)
[2019-02-27 04:41] VITALS: BP 116/77; PULSE 69; RESP 18; TEMP 98.7
[2019-02-27] MEDS: FAMOTIDINE 20 MG TAB PO SCH (08:13)
[2019-02-27] MEDS: HYDROcodone/APAP 10-325MG 1 EACH TAB PO PRN (08:13)
[2019-02-27] MEDS: HEPARIN SODIUM,PORCINE 5,000 UNIT/ML 1 ML VIAL SQ SCH (08:13)
[2019-02-27] MEDS: LISINOPRIL 20 MG TAB PO SCH ×2 (09:49→09:50)
--- NOTE | 2019-02-27 14:26 | P.DS ---
Providers Date of admission: 02/24/19 16:55 Attending physician: Marcelino Combs Consults: 02/24/19 17:13 Consult Physician Stat Consulting Provider: Tyson Noguera Consult Reason/Comments: Intractable pain, rectal ca, mets Do you want consulting provider notified?: Yes 02/25/19 09:05 Consult Physician Routine Consulting Provider: Raya Navarro Consult Reason/Comments: L3 met, increased pain, poss kypho? Do you want consulting provider notified?: Yes 02/25/19 09:06 Consult Physician Routine Consulting Provider: Tremaine Jamison Consult Reason/Comments: Bone mets, pain Do you want consulting provider notified?: Yes Primary care physician: [facility] Course: 64-year-old pleasant female with metastatic colon cancer receiving chemotherapy which is being temporally held because of the side effects came in after a fall 3 days ago found to have compression fracture at L4 patient was complaining of severe back pain radiating to the legs. CAT scan of the abdomen pelvis was suspicious for progression of cancer in the lungs because of which the oncology wanted a MRI but patient declined to get an MRI at this time. Patient denied any bowel or bladder incontinence patient denied any increased weakness in the legs except for radiating pain into both legs because of sciatic nerve compression. Patient is presently on morphine, ibuprofen. Along with GI prophylaxis. Physical therapy occupational therapy will evaluate the patient. 02/26/2019 Patient is currently up walking the halls with physical therapy and doing well. Patient is refusing a former rehab facility upon discharge and would like to go home. She would like to get better pain control prior to discharge. Will increase [place] and patient is currently using fentanyl patch. Will continue to monitor. Patient denies any chest pain, shortness of breath, or palpitations at this time. Patient is afebrile. Patient denies any nausea or vomiting and is tolerating diet. Patient states that she has chronic back, hip, and leg pain. Patient is currently awaiting a brace that was ordered for her continuous back pain per orthopedic surgery. 02/27/2019 Patient pain is well controlled at this time ablating in the hallways. Patient has a TLSO brace and patient has appointments for radiation therapy as an outpatient patient will be discharged on present pain regimen. - Exam GENERAL: The patient is alert and oriented x3, not in any acute distress. Well developed, well nourished. HEENT: Pupils are round and equally reacting to light. EOMI. No scleral icterus. No conjunctival pallor. Normocephalic, atraumatic. No pharyngeal erythema. No thyromegaly. CARDIOVASCULAR: S1 and S2 present. No murmurs, rubs, or gallops. PULMONARY: Chest is clear to auscultation, no wheezing or crackles. ABDOMEN: Soft, nontender, nondistended, normoactive bowel sounds. No palpable organomegaly. MUSCULOSKELETAL: Deferred to orthopedic surgery EXTREMITIES: No cyanosis, clubbing, or pedal edema. NEUROLOGICAL: Gross neurological examination did not reveal any focal deficits. Gait is steady SKIN: No rashes. Assessment and Plan Assessment: -Back pain severe acute secondary to compression fracture at L4, patient will need a brace orthopedic surgery evaluated the patient. Physical therapy and consultation pain management as mentioned above -Metastatic colon cancer -Hypertension Patient Condition at Discharge: Stable Plan - Discharge Summary Discharge Rx Participant: No New Discharge Prescriptions: New fentaNYL 25MCG/HR PATCH [Duragesic 25MCG/HR] 1 patch TRANSDERM Q72H #3 patch Ibuprofen [Motrin] 400 mg PO Q6HR PRN tab PRN Reason: Mild Pain Or Fever > 100.5 HYDROcodone/APAP 10-325MG [[place] 10-325] 1 each PO Q8H PRN #12 tab PRN Reason: MODERATE Pain Famotidine [Pepcid] 20 mg PO BID 30 Days #60 tab Continue HYDROcodone/APAP 7.5-325MG [[place] 7.5-325] 1 tab PO Q8H Hydrochlorothiazide [Hydrodiuril] 12.5 mg PO DAILY Lisinopril [Zestril] 20 mg PO DAILY Discharge Medication List HYDROcodone/APAP 7.5-325MG [[place] 7.5-325] 1 tab PO Q8H 12/15/18 [History] Hydrochlorothiazide [Hydrodiuril] 12.5 mg PO DAILY 12/15/18 [History] Lisinopril [Zestril] 20 mg PO DAILY 02/24/19 [History] Famotidine [Pepcid] 20 mg PO BID 30 Days #60 tab 02/26/19 [Rx] HYDROcodone/APAP 10-325MG [[place] 10-325] 1 each PO Q8H PRN #12 tab 09/27/19 [Rx] Ibuprofen [Motrin] 400 mg PO Q6HR PRN tab 02/26/19 [Rx] fentaNYL 25MCG/HR PATCH [Duragesic 25MCG/HR] 1 patch TRANSDERM Q72H #3 patch 02/26/19 [Rx] Follow up Appointment(s)/Referral(s): Sharon Askew MD [Primary Care Provider] - 1-2 days (Patient to call Dr. Askew's office Friday morning to schedule follow up appointment. The office is closed at time of discharge. ) Uri Ramírez PAC [PHYSICIAN SLURRY CONTROL TENDER] - 2 Weeks (Patient to call Dr. Navarro's office Friday morning to schedule follow up appointment. The office is closed at time of discharge. ) Tremaine Jamison MD [STAFF PHYSICIAN] - 03/03/19 9:00 am (Follow up appt at [facility] Sunday, March 03, 2019 at 9am) Tyson Noguera MD [STAFF PHYSICIAN] - 1 Week (Patient to call Dr. Noguera's office Friday morning to schedule follow up appointment. The office is closed at time of discharge.) Patient Instructions/Handouts: Famotidine (By mouth), Hydrocodone/Acetaminophen (By mouth), Fentanyl (Absorbed through the skin), Vertebral Compression Fracture (DC), Bone Metastasis (DC) Activity/Diet/Wound Care/Special Instructions: 1. Patient may wear TLSO brace for comfort and support while sitting upright at greater than 45, during increase activities, and while ambulating; patient does not have to wear the brace while lying in bed or bathing 2. Patient should avoid excessive bending, twisting, and lifting; no lifting greater than 10 pounds Activity Limited until follow-up Continue current diet Follow-up with oncology this week to discuss possible outpatient MRI with an open MRI Follow-up with primary care provider upon discharge Follow-up with orthopedic surgery clinic upon discharge after receiving MRI. Discharge Disposition: HOME SELF-CARE
== END 2019-02-27 11:12 | disposition home or self-care (01) | DRG 543 ==
LOC: EC 12:48 → 3NMEDONC 16:55
PROVIDERS: ADMIT Hospitalist; ATTEND Hospitalist
DX: M84.58XA Pathological fracture in neoplastic disease, other specified site, initial encounter for fracture (principal); C79.51 Secondary malignant neoplasm of bone; C20 Malignant neoplasm of rectum; C78.02 Secondary malignant neoplasm of left lung; C78.01 Secondary malignant neoplasm of right lung; C78.7 Secondary malignant neoplasm of liver and intrahepatic bile duct; F40.240 Claustrophobia; G89.3 Neoplasm related pain (acute) (chronic); I10 Essential (primary) hypertension; M40.209 Unspecified kyphosis, site unspecified; M51.34 Other intervertebral disc degeneration, thoracic region; M54.10 Radiculopathy, site unspecified; M19.90 Unspecified osteoarthritis, unspecified site; M54.32 Sciatica, left side; M54.31 Sciatica, right side; M25.559 Pain in unspecified hip; Z79.899 Other long term (current) drug therapy; Z79.891 Long term (current) use of opiate analgesic; Z91.030 Bee allergy status; Z92.3 Personal history of irradiation; Z87.891 Personal history of nicotine dependence; Z90.49 Acquired absence of other specified parts of digestive tract; Z80.9 Family history of malignant neoplasm, unspecified; Z82.49 Family history of ischemic heart disease and other diseases of the circulatory system
CPT/HCPCS: 36415; 72070; 72100; 74177; 80053; 81001; 82150; 83690; 85025; 85610; 85730; 93005; 96361; 96374; 99285

== ENCOUNTER 2019-04-14 09:59 | Emergency (ER) | payer OTHER ==
[2019-04-14 10:09] VITALS: TEMP 97.9
[2019-04-14] MEDS ORDERED: SODIUM CHLORIDE 0.9% 1,000 ML IV STA (10:45)
--- NOTE | 2019-04-14 11:03 | ED ---
General Adult HPI - General Chief complaint: Dizziness Stated complaint: DIZZINESS, HYPERTENSION, Ca PATIENT Time Seen by Provider: 04/14/19 10:10 Source: patient, RN notes reviewed, old records reviewed Mode of arrival: wheelchair Limitations: no limitations - History of Present Illness Initial comments: This is a 64-year-old female who has a past medical history significant for colon cancer with metastatic disease to the liver and the lungs. Patient states she's currently receiving chemotherapy on a pump. Patient states since last night she's been dizzy but this morning she woke up with the dizziness laid back down for a little but got up later and had no more dizziness. Patient states she called her doctor her doctor wanted to come to the emergency department to be evaluated patient states she has no symptoms at this time per patient denies headache patient denies numbness or weakness. Patient states the dizziness makes her feel like she just needs to hold onto something. Patient denies any near syncopal or syncopal episode. Patient denies any chest pain palpitations difficulty breathing shortness of breath per patient denies any fever chills or cough. Patient denies abdominal pain patient denies nausea vomiting or diarrhea. - Related Data Home Medications Medication Instructions Recorded Confirmed Hydrochlorothiazide [Hydrodiuril] 12.5 mg PO DAILY 12/15/18 04/14/19 Lisinopril [Zestril] 20 mg PO DAILY 02/24/19 04/14/19 Acetaminophen Tab [Tylenol Tab] 650 mg PO Q6H PRN 04/14/19 04/14/19 Esomeprazole Magnesium [NexIUM 20 mg PO DAILY PRN 04/14/19 04/14/19 24Hr] Famotidine [Pepcid] 20 mg PO BID PRN 04/14/19 04/14/19 HYDROcodone/APAP 10-325MG [[place] 1 tab PO DAILY 04/14/19 04/14/19 10-325] Previous Rx's Medication Instructions Recorded fentaNYL 25MCG/HR PATCH [Duragesic 1 patch TRANSDERM Q72H #3 patch 02/26/19 25MCG/HR] Allergies Allergy/AdvReac Type Severity Reaction Status Date / Time bee venom protein (honey bee) Allergy Anaphylaxis Verified 04/14/19 11:59 morphine AdvReac Confusion Verified 04/14/19 11:59 Review of Systems ROS Statement: Those systems with pertinent positive or pertinent negative responses have been documented in the HPI. ROS Other: All systems not noted in ROS Statement are negative. Past Medical History Past Medical History: Cancer, Hypertension, Osteoarthritis (OA) Additional Past Medical History / Comment(s): RECTAL CANCER,SPOTS ON LUNGS AND LIVER" History of Any Multi-Drug Resistant Organisms: None Reported Past Surgical History: Section, Cholecystectomy Additional Past Surgical History / Comment(s): COLONOSCOPY Past Anesthesia/Blood Transfusion Reactions: Postoperative Nausea & Vomiting (PONV) Additional Past Anesthesia/Blood Transfusion Reaction / Comment(s): CLAUSTROPHOBIA Past Psychological History: No Psychological Hx Reported Smoking Status: Former smoker Past Alcohol Use History: None Reported Past Drug Use History: None Reported - Past Family History Mother Family Medical History: Cancer Father Family Medical History: Cancer Sister(s) Family Medical History: Deep Vein Thrombosis (DVT) General Exam - General Exam Comments Initial Comments: GENERAL: Patient is well-developed and well-nourished. Patient is nontoxic and well- hydrated and is in mild distress. ENT: Neck is soft and supple. No significant lymphadenopathy is noted. Oropharynx is clear. Moist mucous membranes. Neck has full range of motion without eliciting any pain. EYES: The sclera were anicteric and conjunctiva were pink and moist. Extraocular movements were intact and pupils were equal round and reactive to light. Eyelids were unremarkable. PULMONARY: Unlabored respirations. Good breath sounds bilaterally. No audible rales rhonchi or wheezing was noted. CARDIOVASCULAR: There is a regular rate and rhythm without any murmurs gallops or rubs. ABDOMEN: Soft and nontender with normal bowel sounds. SKIN: Skin is clear with no lesions or rashes and otherwise unremarkable. NEUROLOGIC: Patient is alert and oriented x3. Cranial nerves II through XII are grossly intact. Motor and sensory are also intact. Normal speech, volume and content. Symmetrical smile. MUSCULOSKELETAL: Normal extremities with adequate strength and full range of motion. LYMPHATICS: No significant lymphadenopathy is noted PSYCHIATRIC: Normal psychiatric evaluation. Limitations: no limitations Course Vital Signs 04/14/19 04/14/19 04/14/19 10:07 11:00 11:30 Temperature 97.9 F Pulse Rate 89 69 64 Respiratory 18 12 11 L Rate Blood Pressure 142/84 125/97 106/82 O2 Sat by Pulse 96 96 99 Oximetry Medical Decision Making - Medical Decision Making EKG shows normal sinus rhythm at 75 bpm FL interval is on a 76 QRS is 66 QT interval 388 QTC is 433. Patient's EKG shows no ST segment elevation or depression. CT of the brain shows no acute abnormalities. CT of the chest shows a area of probable metastases no pneumonia is obvious on the x-ray. Patient has no symptoms throughout her whole ED stay. - Lab Data Result diagrams: 04/14/19 11:04/14/19 11: Lab Results 04/14/19 04/14/19 04/14/19 Range/Units 11: 11: 11: WBC 2.9 L (3.8-10.6) k/uL RBC 4.22 (3.80-5.40) m/uL Hgb 11.0 L (11.4-16.0) gm/dL Hct 34.5 (34.0-46.0) % MCV 81.7 (80.0-100.0) fL MCH 26.0 (25.0-35.0) pg MCHC 31.8 (31.0-37.0) g/dL RDW 16.6 H (11.5-15.5) % Plt Count 456 H (150-450) k/uL Neutrophils % 68 % Lymphocytes % 17 % Monocytes % 12 % Eosinophils % 0 % Basophils % 0 % Neutrophils # 2.0 (1.3-7.7) k/uL Lymphocytes # 0.5 L (1.0-4.8) k/uL Monocytes # 0.4 (0-1.0) k/uL Eosinophils # 0.0 (0-0.7) k/uL Basophils # 0.0 (0-0.2) k/uL Hypochromasia Moderate Anisocytosis Slight Sodium 139 (137-145) mmol/L Potassium 4.6 (3.5-5.1) mmol/L Chloride 100 (98-107) mmol/L Carbon Dioxide 28 (22-30) mmol/L Anion Gap 11 mmol/L BUN 15 (7-17) mg/dL Creatinine 0.67 (0.52-1.04) mg/dL Est GFR (CKD-EPI)AfAm >90 (>60 ml/min/1.73 sqM) Est GFR (CKD-EPI)NonAf >90 (>60 ml/min/1.73 sqM) Glucose 140 H (74-99) mg/dL Calcium 9.6 (8.4-10.2) mg/dL Magnesium 2.2 (1.6-2.3) mg/dL Total Bilirubin 0.4 (0.2-1.3) mg/dL AST 25 (14-36) U/L ALT 12 (9-52) U/L Alkaline Phosphatase 134 H (38-126) U/L Troponin I <0.012 (0.000-0.034) ng/mL Total Protein 7.0 (6.3-8.2) g/dL Albumin 3.8 (3.5-5.0) g/dL Disposition Clinical Impression: Dizziness Disposition: HOME SELF-CARE Condition: Good Instructions (If sedation given, give patient instructions): Dizziness (ED) Is patient prescribed a controlled substance at d/c from ED?: No Referrals: Sharon Askew MD [Primary Care Provider] - 1-2 days Time of Disposition: 13:21
[2019-04-14 11:49] LABS: Anisocytosis Slight; Basophils % (A) 0 %; Eosinophils % (A) 0 %; HCT 34.5 % (34.0-46.0); Hypochromasia Moderate; Lymphocytes # (A) 0.5 k/uL (1.0-4.8); Lymphocytes % (A) 17 %; MCHC 31.8 g/dL (31.0-37.0); MCV 81.7 fL (80.0-100.0); Mean Platelet Volume 5.5; Monocytes # (A) 0.4 k/uL (0-1.0); Monocytes % (A) 12 %; Neutrophils % (A) 68 %; Platelet Count 456 k/uL (150-450); RBC 4.22 m/uL (3.80-5.40); RDW 16.6 % (11.5-15.5); WBC 2.9 k/uL (3.8-10.6)
[2019-04-14 12:04] LABS: ALT 12 U/L (9-52); AST 25 U/L (14-36); African American GFR (CKD) >90 (>60 ml/min/1.73 sqM); Albumin 3.8 g/dL (3.5-5.0); Alkaline Phosphatase 134 U/L (38-126); Anion Gap 11 mmol/L; Blood Urea Nitrogen 15 mg/dL (7-17); Calcium 9.6 mg/dL (8.4-10.2); Carbon Dioxide 28 mmol/L (22-30); Chloride 100 mmol/L (98-107); Glucose 140 mg/dL (74-99); Magnesium 2.2 mg/dL (1.6-2.3); Potassium 4.6 mmol/L (3.5-5.1); Sodium 139 mmol/L (137-145); Total Bilirubin 0.4 mg/dL (0.2-1.3)
--- NOTE | 2019-04-14 12:21 | XR ---
EXAMINATION TYPE: XR chest 2V DATE OF EXAM: 04/14/2019 COMPARISON: 11/20/2017 HISTORY: Chest pain TECHNIQUE: Frontal and lateral views of the chest are obtained. FINDINGS: There are known bilateral pulmonary nodules the largest in the right upper lung. Right-savannah ed Mediport is present. There are low lung volumes exaggerating the pulmonary vasculature. Possible n ew interstitial prominence versus low lung volumes. Cardiomediastinal silhouette is stable. No acute osseous pathology. IMPRESSION: 1. Possible new interstitial prominence versus exaggeration of the pulmonary vasculature by low lung volumes. Interstitial prominence could relate to mild fluid overload. 2. Redemonstration of multiple known pulmonary nodules.
--- NOTE | 2019-04-14 12:31 | CT ---
EXAMINATION TYPE: CT brain wo con DATE OF EXAM: 04/14/2019 COMPARISON: None HISTORY: Dizziness, hypertension CT DLP: 1040.4 mGycm Automated exposure control for dose reduction was used. FINDINGS: There is no acute intracranial hemorrhage, mass effect, or midline shift identified. The ventricles and sulci are within normal limits in size. The globes are intact and the visualized sinuses are christian ar. There is severe atherosclerotic intracranial disease involving the left vertebral artery and bilatera l cavernous segment of the ICA greater on the right. Cerebellar tonsils are low-lying in position at the level of foramen magnum. IMPRESSION: 1. No acute intracranial hemorrhage, mass effect, or midline shift is seen. 2. Low-lying cerebellar tonsils. 3. Significant intracranial atherosclerotic changes.
[2019-04-14 13:29] VITALS: BP 135/98; PULSE 59; RESP 14
== END 2019-04-14 13:39 | disposition home or self-care (01) ==
LOC: EC 09:59
DX: R42 Dizziness and giddiness (principal); I10 Essential (primary) hypertension; C78.7 Secondary malignant neoplasm of liver and intrahepatic bile duct; C78.00 Secondary malignant neoplasm of unspecified lung; C18.9 Malignant neoplasm of colon, unspecified; Z79.899 Other long term (current) drug therapy; Z88.5 Allergy status to narcotic agent; Z91.030 Bee allergy status; Z87.891 Personal history of nicotine dependence
CPT/HCPCS: 36415; 70450; 71046; 80053; 83735; 84484; 85025; 93005; 96360; 99285

== ENCOUNTER → 2019-05-17 | Outpatient (CLI) | payer OTHER | END | disposition home or self-care (01) | LOC: RADCTMAIN 13:44 | PROVIDERS: ATTEND Internal Medicine Hematology & Oncology | DX: Z53.9 Procedure and treatment not carried out, unspecified reason (principal) ==

== ENCOUNTER → 2019-06-04 | Outpatient (CLI) | payer OTHER ==
--- NOTE | 2019-06-05 08:26 | CT ---
EXAMINATION TYPE: CT ChestAbdPelvis w con DATE OF EXAM: 06/04/2019 INDICATION: Rectal cancer, observe for METS COMPARISON: 02/24/2019, 12/14/2018 CT DLP: 1732 mGycm CONTRAST: Performed with Oral Contrast and with IV Contrast, patient injected with 100 mL of Isovue 300. TECHNIQUE: Axial images at 5 mm thick sections. Reconstructed images in the coronal plane. Delayed images through the kidneys. FINDINGS: CT CHEST: Portion of the thyroid visualized is normal. There are numerous nodules present throughout the bilateral lung maki. The largest lobular mass is in the anterior right upper lobe, series 3 image 17 measuring 2.7 x 3.0 cm. This is compared to 2018 measurements of 2.1 x 2.1 cm. An additional reference lesion is in the posterior lateral right m id lung measuring 1.3 cm, series 4 image 25., This previously measured 1.2 cm. A subcarinal lymph node has a transverse dimension of 1.1 cm. Previous measurement of November 2018 is 1. 0 cm. Right hilar lymph node currently measures 0.9 cm. This is smaller than the 1.1 cm in 12/14/2018. The ascending aorta diameter at the level of the main pulmonary artery is 4.1 cm. The main pulmonary artery diameter at the bifurcation is 2.[address] ABDOMEN: Liver: Normal Spleen: Normal Pancreas: Normal Adrenal glands: The adrenal glands are normal. Gallbladder: Normal Kidneys: No masses are evident. No hydronephrosis is present. No cysts are present. Delayed images were obtained through the kidneys, which remain unremarkable. Aorta: Vascular calcification is within the aorta. Inferior vena cava: Normal. CT PELVIS: Loops of bowel within the abdomen and pelvis are normal. There are loops of bowel which are incom pletely distended or lack oral contrast limiting their evaluation. Appendix: Not identified. No suspicious tubular structures or inflammatory changes are evident. Urinary bladder: Normal. Genitourinary structures: Uterus appears normal. Adnexal regions are clear. Osseous structures: There is a small sclerotic area within the lateral right sacrum suspicious for me tastatic lesion. Series 3 image 90. Small central sclerotic area may be within the lower sacrum. Seri es 3 image 92. These were present previously. There is a compression deformity with irregular sclero sis through the L3 level. Posterior wall displacement is evident. Spinal canal stenosis may be presen t. Some sclerosis is also present in the region of the T8 also suspicious for metastatic lesion.. Facet degenerative changes are present. IMPRESSIONS: 1. Extensive bilateral nodularity within the lung maki. The largest reference lesion has increased in size from 12/14/2018. 2. Mediastinal adenopathy appears similar to minimally larger than the comparison. This may be measur ement error. 3. Stable appearing metastatic changes to the thoracic and lumbar spine discussed above. Some stable metastases also present within the sacrum.
== END | disposition home or self-care (01) ==
LOC: RADCTMAIN 06:57
PROVIDERS: ATTEND Internal Medicine Hematology & Oncology
DX: C20 Malignant neoplasm of rectum (principal); C79.51 Secondary malignant neoplasm of bone; R91.8 Other nonspecific abnormal finding of lung field; R59.0 Localized enlarged lymph nodes; Z91.030 Bee allergy status; Z88.8 Allergy status to other drugs, medicaments and biological substances
CPT/HCPCS: 82565; 84520; 71260; 74177; 36415; Q9967 ×2

== ENCOUNTER 2019-07-06 12:24 | Inpatient (IN) | payer MEDICARE, OTHER ==
[2019-07-06] MEDS ORDERED: ASPIRIN 81 MG PO STA (12:43)
[2019-07-06] MEDS ORDERED: SODIUM CHLORIDE 0.9% 500 ML 500 ML IV STA (12:43)
[2019-07-06] MEDS ORDERED: NITROGLYCERIN OINT 1 INCH/GM PACKET TOPICAL STA (12:43)
--- NOTE | 2019-07-06 12:47 | ED ---
General Adult HPI - General Chief complaint: Shortness of Breath Stated complaint: Chest pain Time Seen by Provider: 07/06/19 12:35 Source: patient, RN notes reviewed, old records reviewed Mode of arrival: ambulatory Limitations: no limitations - History of Present Illness Initial comments: This is a 64-year-old female presents emergency Department complaining of difficulty breathing. Patient states she just had a pump placed minutes before coming to the emergency department and she had chemotherapy started. Patient does not know what drugs were being pumped into her. Patient states shortly after the chemo started she started having this difficulty breathing but she denies any chest pain or pressure. Patient denies any diaphoretic episodes. Patient denies any lightheadedness or dizziness. Patient denies nausea. Patient denies any recent fever chills. Patient denies any abdominal pain. Patient denies any increased swelling to legs or calf tenderness. - Related Data Home Medications Medication Instructions Recorded Confirmed Hydrochlorothiazide [Hydrodiuril] 12.5 mg PO DAILY 12/15/18 04/14/19 Lisinopril [Zestril] 20 mg PO DAILY 02/24/19 04/14/19 Acetaminophen Tab [Tylenol Tab] 650 mg PO Q6H PRN 04/14/19 04/14/19 Esomeprazole Magnesium [NexIUM 20 mg PO DAILY PRN 04/14/19 04/14/19 24Hr] Famotidine [Pepcid] 20 mg PO BID PRN 04/14/19 04/14/19 HYDROcodone/APAP 10-325MG [[place] 1 tab PO DAILY 04/14/19 04/14/19 10-325] Previous Rx's Medication Instructions Recorded fentaNYL 25MCG/HR PATCH [Duragesic 1 patch TRANSDERM Q72H #3 patch 02/26/19 25MCG/HR] Allergies Allergy/AdvReac Type Severity Reaction Status Date / Time bee venom protein (honey bee) Allergy Anaphylaxis Verified 07/06/19 12:30 morphine AdvReac Confusion Verified 07/06/19 12:30 Review of Systems ROS Statement: Those systems with pertinent positive or pertinent negative responses have been documented in the HPI. ROS Other: All systems not noted in ROS Statement are negative. Past Medical History Past Medical History: Cancer, Hypertension, Osteoarthritis (OA) Additional Past Medical History / Comment(s): RECTAL CANCER,SPOTS ON LUNGS AND LIVER" History of Any Multi-Drug Resistant Organisms: None Reported Past Surgical History: Section, Cholecystectomy Additional Past Surgical History / Comment(s): COLONOSCOPY Past Anesthesia/Blood Transfusion Reactions: Postoperative Nausea & Vomiting (PONV) Additional Past Anesthesia/Blood Transfusion Reaction / Comment(s): CLAUSTROPHOBIA Past Psychological History: No Psychological Hx Reported Smoking Status: Former smoker Past Alcohol Use History: None Reported Past Drug Use History: None Reported - Past Family History Mother Family Medical History: Cancer Father Family Medical History: Cancer Sister(s) Family Medical History: Deep Vein Thrombosis (DVT) General Exam Limitations: no limitations Course Vital Signs 07/06/19 12:28 Temperature 97.8 F Pulse Rate 62 Respiratory 26 H Rate Blood Pressure 161/90 O2 Sat by Pulse 98 Oximetry Medical Decision Making - Medical Decision Making EKG shows sinus tachycardia at 107 bpm RI interval is 186 QRS is 72 QT interval 338 QTC is 451. Patient's EKG shows ST segment elevation in 1 and aVL and depression in V3 through V6. Patient also has T-wave inversions in 3 and aVF Patient is given aspirin and Nitropaste and heparin bolus. Dr. Bowling came down immediately to see the patient. Chemo pump was turned off. Critical Care Time Critical Care Time: Yes Total Critical Care Time: 35 Disposition Clinical Impression: Acute [place] Disposition: ADMITTED IP TO THIS HOSP Referrals: None,Stated [REFERRING] - 1-2 days Time of Disposition: 12:58
[2019-07-06] MEDS ORDERED: HEPARIN SODIUM,PORCINE 5,000 UNIT/ML 1 ML VIAL IV ONE (12:49)
[2019-07-06 12:59] LABS: Anisocytosis Slight; Basophils % (A) 1 %; Eosinophils % (A) 1 %; HCT 39.1 % (34.0-46.0); HGB 12.3 gm/dL (11.4-16.0); Hypochromasia Slight; Lymphocytes # (A) 0.7 k/uL (1.0-4.8); Lymphocytes % (A) 27 %; MCH 25.7 pg (25.0-35.0); MCHC 31.5 g/dL (31.0-37.0); MCV 81.6 fL (80.0-100.0); Mean Platelet Volume 6.6; Microcytosis Slight; Monocytes # (A) 0.1 k/uL (0-1.0); Monocytes % (A) 3 %; Neutrophils # (A) 1.6 k/uL (1.3-7.7); Neutrophils % (A) 64 %; Platelet Count 428 k/uL (150-450); RBC 4.79 m/uL (3.80-5.40); RDW 18.6 % (11.5-15.5); WBC 2.5 k/uL (3.8-10.6)
--- NOTE | 2019-07-06 13:05 | XR ---
EXAMINATION TYPE: XR chest 1V portable DATE OF EXAM: 07/06/2019 COMPARISON: Prior chest x-ray 04/14/2019 HISTORY: Chest pain, myocardial infarct TECHNIQUE: Single frontal view of the chest is obtained. FINDINGS: Lung volumes are low, patient is rotated. There is a right subclavian central venous екатерина ter, port with the distal tip near the cavoatrial junction level as on prior exam. There are abnormal patchy density also present bilaterally within the lungs, nodular density is again seen. Heart is en larged. No evident pneumothorax or pleural effusion. Right hemidiaphragm is elevated. IMPRESSION: Similar to prior exam. Metastatic disease.
--- NOTE | 2019-07-06 13:06 | P.EN ---
I came to see the patient but she was not in the room and she was taken to the [facility]
[2019-07-06 13:11] LABS: Partial Thromboplastin Time 22.1 sec (22.0-30.0); Prothrombin Time 10.6 sec (9.0-12.0)
[2019-07-06 13:14] LABS: ALT 14 U/L (4-34); AST 37 U/L (14-36); African American GFR (CKD) >90 (>60 ml/min/1.73 sqM); Albumin 4.3 g/dL (3.5-5.0); Alkaline Phosphatase 190 U/L (38-126); Anion Gap 15 mmol/L; Blood Urea Nitrogen 9 mg/dL (7-17); Calcium 9.3 mg/dL (8.4-10.2); Carbon Dioxide 24 mmol/L (22-30); Chloride 94 mmol/L (98-107); Glucose 181 mg/dL (74-99); Non-African American GFR(CKD) >90 (>60 ml/min/1.73 sqM); Sodium 133 mmol/L (137-145); Total Bilirubin 0.7 mg/dL (0.2-1.3)
[2019-07-06] MEDS ORDERED: fentaNYL (PF) 50 MCG/ML 2 ML AMP ONE (13:14)
[2019-07-06] MEDS ORDERED: MIDAZOLAM 2 MG/2 ML VIAL IVP ONE (13:17)
[2019-07-06] MEDS ORDERED: LIDOCAINE 1% INJ 10MG/ML (20 ML MDV) SQ ONE (13:17)
[2019-07-06] MEDS ORDERED: SODIUM CHLORIDE 0.9% 1,000 ML IV ONE (13:25)
[2019-07-06] MEDS ORDERED: IOPAMIDOL-370 125ML BTL INJ ONE (13:25)
[2019-07-06] MEDS ORDERED: RX INFO: IV CONTRAST WAS GIVEN 1 EACH MISC MISCELLANE PRN (13:31)
[2019-07-06 14:26] LABS: Glucose,Whole Blood 158 mg/dL (75-99)
--- NOTE | 2019-07-06 14:39 | CONS ---
CONSULTATION CHIEF COMPLAINT: Shortness of breath. This is a 64-year-old lady with history of metastatic rectal cancer who was receiving chemotherapy today at the cancer center and following the chemotherapy developed sudden onset shortness of breath and vague chest discomfort. The patient was brought to the ER where she had an EKG that showed ST-segment elevation in I and aVL and the EKG was different compared to her baseline EKG. Due to this, STEMI team was activated. The patient did not have any chest pain. Her shortness of breath was improved. We brought her emergently to the [facility] for cardiac catheterization with the view to performing primary angioplasty. PAST MEDICAL HISTORY: Significant for hypertension, arthritis, metastatic rectal cancer. She has mets in the liver and lung. PAST SURGICAL HISTORY: Significant for cholecystectomy. MEDICATIONS: Medications at home include Zestril, hydrodiuril, and [place]. ALLERGIES: Bee venom. FAMILY HISTORY: Negative for premature coronary artery disease. SOCIAL HISTORY: Negative for current smoking, EtOH abuse, or drug abuse. REVIEW OF SYSTEMS: HEENT: Unremarkable. CARDIAC: As described above. RESPIRATORY: As described above. GI: Negative. GENITOURINARY: Negative. PSYCHOSOCIAL: Negative. ENDOCRINE: Negative. HEMATOLOGICAL: Negative. ONCOLOGICAL: Significant for metastatic cancer. PHYSICAL EXAMINATION: On exam, patient appears comfortable at rest. Heart rate is 60 beats per minute, blood pressure is 140/92, afebrile. There is no jugular venous distention. Carotid upstroke is diminished. There is no bruit. CHEST: Reveals diminished air entry at the bases. HEART: Reveals first and second heart sounds. Systolic murmur at the left lower sternal border. ABDOMEN: Soft. Examination of the extremities did not reveal any edema. Peripheral pulses are palpable. LABS: Hemoglobin of 12.3, platelet count of 428. Potassium is 3, creatinine is 0.5, AST is slightly elevated. ASSESSMENT: 1. Acute coronary syndrome. 2. Metastatic rectal cancer. PLAN: I advised the patient to undergo emergent cardiac catheterization to rule out ischemic heart disease. If this is negative, we are going to evaluate for pulmonary embolism. MMODL / FAIZAN: [id number] /
--- NOTE | 2019-07-06 14:48 | CC ---
CARDIAC CATHETERIZATION REPORT INDICATION: Acute coronary syndrome, acute ST-segment elevation CA. PROCEDURE NOTE: After obtaining informed consent, left heart catheterization and coronary angiogram are performed via the right femoral artery using standard Jake catheters. Patient tolerated the procedure well without any obvious immediate complications. A femoral angiogram was performed and decision was made for manual hemostasis. Patient received moderate conscious sedation. Total sedation time was 14 minutes. FINDINGS: 1. HEMODYNAMICS: Left ventricular end-diastolic pressure is 12 to 14 mm. There is no significant gradient across the aortic valve. 2. LEFT VENTRICULOGRAM: Left ventriculogram is not performed. 3. ANGIOGRAPHIC DATA: Left main coronary artery: Left main coronary artery is a normal-sized vessel and is free of stenosis. Divides into left anterior descending coronary artery and circumflex coronary artery. LAD and its branches are free of stenosis. Circumflex coronary artery shows mild to moderate atherosclerotic plaque without any focal areas of stenosis. Right coronary artery shows mild nonobstructive disease. CONCLUSIONS: No significant obstructive coronary artery disease. PLAN: The patient will undergo CT of the chest to rule out pulmonary embolism. We will admit her to telemetry and decide on further course of action based on how her symptoms evolve. MMODL / IJN: [id number] /
--- NOTE | 2019-07-06 15:02 | CT ---
EXAMINATION TYPE: CT angio chest DATE OF EXAM: 07/06/2019 COMPARISON: CT 06/04/2019 HISTORY: SOB CT DLP: 547 mGycm Automated exposure control for dose reduction was used. CONTRAST: CTA scan of the thorax is performed with IV Contrast, patient injected with 69 mL of Isovue 370, pulm onary embolism protocol. MIP images are created and reviewed. 3D reconstructed images are created o n an independent workstation and reviewed. FINDINGS: LUNGS: The lungs are essentially stable with multiple pulmonary nodules of varying sizes. There is no pleural effusion or pneumothorax seen. The tracheobronchial tree is patent. AORTA: No additional significant abnormality is seen. MEDIASTINUM: There is satisfactory enhancement of the pulmonary artery and its branches, there is no CT evidence for pulmonary embolism. There are enlarged hilar and subcarinal nodes as on prior. No pericardial effusion is seen. OTHER: Multiple foci abnormal density consistent with bone metastasis to include the right shoulder, compression fracture present again within the thoracic spine with retropulsion. Left adrenal nodule shows low density and may represent adenoma. Ascending aorta measures approximately 4.1 cm. There is a port in the right pectoral region. Catheter courses via a subclavian approach into the superior vena cava. There are coronary calcifications pre sent. IMPRESSION: NO EVIDENT PULMONARY EMBOLISM. METASTATIC DISEASE. AORTIC ANEURYSM AND ADDITIONAL FINDINGS ABOVE.
[2019-07-06] MEDS ORDERED: DIPHENOX-ATROP 2.5-0.025 MG 1 EACH TAB PO PRN (15:21)
[2019-07-06] MEDS ORDERED: HYDROcodone/APAP 10-325MG 1 EACH TAB PO PRN (15:21)
[2019-07-06] MEDS: POTASSIUM CHLORIDE ER 20 MEQ TAB.ER PO STA ×3 (15:41→18:27)
[2019-07-06] MEDS: SODIUM CHLORIDE 0.9% 1,000 ML IV SCH (15:42)
[2019-07-07] MEDS: SODIUM CHLORIDE 0.9% 1,000 ML IV SCH (04:43)
[2019-07-07 04:55] LABS: African American GFR (CKD) >90 (>60 ml/min/1.73 sqM); Anion Gap 8 mmol/L; Blood Urea Nitrogen 13 mg/dL (7-17); Carbon Dioxide 29 mmol/L (22-30); Chloride 99 mmol/L (98-107); Glucose 149 mg/dL (74-99); Non-African American GFR(CKD) >90 (>60 ml/min/1.73 sqM); Potassium 4.2 mmol/L (3.5-5.1); Sodium 136 mmol/L (137-145)
[2019-07-07 05:30] LABS: Anisocytosis Slight; Basophils % (A) 1 %; Eosinophils % (A) 0 %; HCT 33.9 % (34.0-46.0); HGB 10.6 gm/dL (11.4-16.0); Hypochromasia Moderate; Lymphocytes # (A) 0.3 k/uL (1.0-4.8); Lymphocytes % (A) 14 %; MCH 25.8 pg (25.0-35.0); MCHC 31.4 g/dL (31.0-37.0); MCV 82.3 fL (80.0-100.0); Mean Platelet Volume 6.4; Microcytosis Slight; Monocytes # (A) 0.3 k/uL (0-1.0); Monocytes % (A) 13 %; Neutrophils # (A) 1.6 k/uL (1.3-7.7); Neutrophils % (A) 68 %; Platelet Count 337 k/uL (150-450); RBC 4.11 m/uL (3.80-5.40); RDW 18.5 % (11.5-15.5); WBC 2.3 k/uL (3.8-10.6)
[2019-07-07 08:08] VITALS: BP 113/77; PULSE 57; RESP 16; TEMP 98
[2019-07-07] MEDS ORDERED: HYDROCHLOROTHIAZIDE 12.5 MG CAP PO SCH (09:00)
[2019-07-07] MEDS ORDERED: LISINOPRIL 20 MG TAB PO SCH (09:00)
--- NOTE | 2019-07-07 10:31 | PN ---
PROGRESS NOTE A 64-year-old lady with metastatic rectal cancer was admitted to the hospital yesterday with acute coronary syndrome, underwent emergent cardiac catheterization that did not reveal significant CAD and also had a CT scan of the chest that was negative for pulmonary embolism. This morning, patient is doing well, wishes to go home. PHYSICAL EXAMINATION: Physical exam shows that vital signs are stable. Chest is clear to auscultation and percussion. Heart exam reveals first and second heart sounds. No gallop. Exam of extremities did not reveal any edema. Right groin is free of bleeding, bruit, hematoma. Foot pulses are intact. ASSESSMENT: 1. Acute coronary syndrome. 2. Metastatic cancer. PLAN: Workup so far is negative. The exact etiology for her symptoms yesterday is unclear, could be related to the chemotherapeutic agent. No further cardiac workup at this time. MMODL / IJN: [id number] /
--- NOTE | 2019-07-07 10:56 | P.HPIM ---
History of Present Illness This is a combined H&P and discharge summary Diagnoses: Episodic dyspnea post chemotherapy,Patient will follow up with her oncologist Dr. Noguera Colon cancer for 3. half years, with metastatic disease to the lung, liver and bone Hypertension Osteoarthritis Asymptomatic chronic compression thoracic fracture Ex smoker Hospital course This is a pleasant 64 years old female with past medical history of colon cancer for the last 3-1/2 years, echo was in [place] and then moved to [place] where she was following with Dr. Noguera, patient unaware of metastatic disease to the lungs, liver and bone including the spine, she is aware also she has compression of fracture of the back, she is still complaining of from back pain and they she got radiotherapy as she's been no back pain. She was following jay h Dr. Noguera and noticed that the pulmonary nodules has progressed so they recommended a new chemotherapy for her which she got yesterday, and after she finished her chemotherapy and as she was leaving the medical facility she felt significant dyspnea and collapse in the parking lot so she was admitted to the emergency room, there was suspicion of ST elevation myocardial infarction, she's been evaluated by [facility] and underwent emergent cardiac cath which was unremarkable coronary artery, also she had elevated d-dimer and CTA of the chest shows no pulmonary embolism however shows pulmonary nodule, bone metastasis including the right shoulder and compression thoracic fracture, patient told me she is aware of all her metastatic disease except for the right shoulder which is a new to her however patient denies any pain in her shoulder or back or chest, she can move her arms and shoulder freely and raise her arm above her head on both sides. No other complaints, no dyspnea, no nausea vomiting, no abdominal pain, no change in urine or bowel habits. She is tolerating diet well, get up and go test is normal. Patient feels she is back to her usual state, she feels ready to be discharged and when I walked into the room patient was already addressed up with son at bedside. Patient does not want to wait for oncology consult to evaluate her and she stated she will follow up with Dr. Noguera, she supposed to see him in 2 weeks but now she agrees to reschedule in one week. Patient said she will follow up with Dr. Noguera and discuss with him her symptoms after chemotherapy she got last time. Other medical problems include hypertension osteoarthritis. Vitals are stable. Labs are reviewed and showed chronic leukopenia. Medication none reported as well, no change in her home medication and patient did not want any scripts Patient was cleared for discharge by cardiology Problems and management plan were discussed with the patient and she verbalized understanding and acceptance and labs are reviewed Patient was found stable and can be discharged home however he needs follow-up as an outpatient. Patient was instructed to follow up with PCP Dr. Cyr within one week and patient agrees to call and make appointment. Also patient was instructed to follow-up with Dr. Noguera in one week and she agrees. Patient asked medical staff to try to make her appointment Dr. Noguera Review of systems CONSTITUTIONAL: No fever, no malaise, no fatigue. HEENT: No recent visual problems or hearing problems. Denied any sore throat. CARDIOVASCULAR: No orthopnea, PND, no palpitations, no syncope. PULMONARY: No shortness of breath, no cough, no hemoptysis. GASTROINTESTINAL: No diarrhea, no nausea, no vomiting, no abdominal pain. Normoactive bowel sounds. NEUROLOGICAL: No headaches, no weakness, no numbness. HEMATOLOGICAL: Denies any bleeding or petechiae. GENITOURINARY: Denies any burning micturition, frequency, or urgency. MUSCULOSKELETAL/RHEUMATOLOGICAL: Denies any joint pain, swelling, or any muscle pain. ENDOCRINE: Denies any polyuria or polydipsia. Physical exam GENERAL: The patient is alert and oriented x3, not in any acute distress. Well developed, well nourished. HEENT: Pupils are round and equally reacting to light. EOMI. No scleral icterus. No conjunctival pallor. Normocephalic, atraumatic. No pharyngeal erythema. No thyromegaly. CARDIOVASCULAR: S1 and S2 present. No murmurs, rubs, or gallops. PULMONARY: Chest is clear to auscultation, no wheezing or crackles. ABDOMEN: Soft, nontender, nondistended, normoactive bowel sounds. No palpable organomegaly. MUSCULOSKELETAL: No joint swelling or deformity. EXTREMITIES: No cyanosis, clubbing, or pedal edema. NEUROLOGICAL: Gross neurological examination did not reveal any focal deficits. SKIN: No rashes. No petechiae Time spent: More than 35 minutes Past Medical History Past Medical History: Cancer, Hypertension, Osteoarthritis (OA) Additional Past Medical History / Comment(s): RECTAL CANCER,SPOTS ON LUNGS AND LIVER" History of Any Multi-Drug Resistant Organisms: None Reported Past Surgical History: Section, Cholecystectomy Additional Past Surgical History / Comment(s): COLONOSCOPY Past Anesthesia/Blood Transfusion Reactions: Postoperative Nausea & Vomiting (PONV) Additional Past Anesthesia/Blood Transfusion Reaction / Comment(s): CLAUSTROPHOBIA Past Psychological History: No Psychological Hx Reported Additional Psychological History / Comment(s): HX OF CLAUSTROPHOBIA Smoking Status: Former smoker Past Alcohol Use History: None Reported Additional Past Alcohol Use History / Comment(s): STARTED SMOKING AT AGE 13 QUIT AT AGE 58 SMOKED 1PPD Past Drug Use History: None Reported - Past Family History Mother Family Medical History: Cancer Father Family Medical History: Cancer Sister(s) Family Medical History: Deep Vein Thrombosis (DVT) Medications and Allergies Home Medications Medication Instructions Recorded Confirmed Type Hydrochlorothiazide [Hydrodiuril] 12.5 mg PO DAILY 12/15/18 07/06/19 History Lisinopril [Zestril] 20 mg PO DAILY 02/24/19 07/06/19 History fentaNYL 25MCG/HR PATCH [Duragesic 1 patch TRANSDERM Q72H #3 patch 02/26/19 07/06/19 Rx 25MCG/HR] HYDROcodone/APAP 10-325MG [[place] 1 tab PO Q6H PRN 04/14/19 07/06/19 History 10-325] Diphenoxylate HCl/Atropine 2 tab PO QID PRN 07/06/19 07/06/19 History [Lomotil 2.5-0.025 mg Tablet] Lidocaine-Prilocaine Cream [[place]ml[place] 1 applic TOPICAL DAILY PRN 07/06/19 07/06/19 History Cream 2.5%/2.5%] Allergies Allergy/AdvReac Type Severity Reaction Status Date / Time bee venom protein (honey bee) Allergy Anaphylaxis Verified 07/06/19 13:46 capecitabine [From Xeloda] Allergy Unknown Verified 07/06/19 13:46 morphine AdvReac Confusion Verified 07/06/19 13:46 Physical Exam Vitals: Vital Signs Temp Pulse Resp BP Pulse Ox 07/07/19 08:00 98 F 57 L 16 113/77 98 07/07/19 04:00 98.8 F 74 15 121/91 98 07/07/19 00:00 98.9 F 69 16 102/79 96 07/06/19 20:00 97.7 F 74 15 139/88 96 07/06/19 19:00 84 17 133/97 07/06/19 18:00 91 16 124/88 07/06/19 17:30 93 16 119/86 07/06/19 17:00 89 16 129/91 07/06/19 16:30 92 15 121/88 07/06/19 16:00 98.4 F 96 26 H 120/95 100 07/06/19 15:30 92 28 H 113/93 07/06/19 15:00 93 13 128/93 100 07/06/19 14:23 98.2 F 104 H 18 128/93 100 07/06/19 12:28 97.8 F 62 26 H 161/90 98 Intake and Output 07/06/19 07/07/19 07/07/19 22:59 06:59 14:59 Intake Total 615 Output Total 825 Balance -210 Intake: Intake, IV Titration 375 Amount Sodium Chloride 0.9% 1, 375 000 ml @ 75 mls/hr IV . [id number] [facility] Rx#:[id number] Tube Feeding 240 Output: Urine 825 Other: Voiding Method Bedpan # Voids 2 2 Weight 71.1 kg Results CBC & Chem 7: 07/07/19 04:05 07/07/19 04:02 Labs: Abnormal Lab Results - Last 24 Hours (Table) 07/06/19 07/06/19 07/06/19 Range/Units 12:47 12:47 12:47 WBC 2.5 L (3.8-10.6) k/uL Hgb (11.4-16.0) gm/dL Hct (34.0-46.0) % RDW 18.6 H (11.5-15.5) % Lymphocytes # 0.7 L (1.0-4.8) k/uL D-Dimer 0.71 H (<0.60) mg/L FEU Sodium 133 L (137-145) mmol/L Potassium 3.0 L (3.5-5.1) mmol/L Chloride 94 L (98-107) mmol/L Glucose 181 H (74-99) mg/dL POC Glucose (mg/dL) (75-99) mg/dL AST 37 H (14-36) U/L Alkaline Phosphatase 190 H (38-126) U/L 07/06/19 07/07/19 07/07/19 Range/Units 14:23 04:02 04:05 WBC 2.3 L (3.8-10.6) k/uL Hgb 10.6 L (11.4-16.0) gm/dL Hct 33.9 L (34.0-46.0) % RDW 18.5 H (11.5-15.5) % Lymphocytes # 0.3 L (1.0-4.8) k/uL D-Dimer (<0.60) mg/L FEU Sodium 136 L (137-145) mmol/L Potassium (3.5-5.1) mmol/L Chloride (98-107) mmol/L Glucose 149 H (74-99) mg/dL POC Glucose (mg/dL) 158 H (75-99) mg/dL AST (14-36) U/L Alkaline Phosphatase (38-126) U/L Thrombosis Risk Factor Assmnt - Choose All That Apply Any of the Below Risk Factors Present?: No Each Risk Factor Represents 2 Points: Age 61-74 years, Central venous access, Patient confined to bed Thrombosis Risk Factor Assessment Total Risk Factor Score: 6 Thrombosis Risk Factor Assessment Level: High Risk
[2019-07-07] MEDS ORDERED: SODIUM CHLORIDE 5% OPHTH DROPS 15 ML BTL BOTH EYES SCH (21:00)
== END 2019-07-07 11:20 | disposition home or self-care (01) | DRG 204 ==
LOC: EC 12:24 → 2SICU 12:59
PROVIDERS: ADMIT Internal Medicine; ATTEND Internal Medicine
PROC: B2111ZZ Fluoroscopy of Multiple Coronary Arteries using Low Osmolar Contrast (ICD-10-PCS; 2019-07-06)
PROC: 4A023N7 Measurement of Cardiac Sampling and Pressure, Left Heart, Percutaneous Approach (ICD-10-PCS; principal; 2019-07-06 10:50)
DX: R06.00 Dyspnea, unspecified (principal); C20 Malignant neoplasm of rectum; C78.7 Secondary malignant neoplasm of liver and intrahepatic bile duct; C78.00 Secondary malignant neoplasm of unspecified lung; C79.51 Secondary malignant neoplasm of bone; M48.54XA Collapsed vertebra, not elsewhere classified, thoracic region, initial encounter for fracture; T45.1X5A Adverse effect of antineoplastic and immunosuppressive drugs, initial encounter; D72.819 Decreased white blood cell count, unspecified; F32.9 Major depressive disorder, single episode, unspecified; F40.240 Claustrophobia; I10 Essential (primary) hypertension; I25.10 Atherosclerotic heart disease of native coronary artery without angina pectoris; M19.90 Unspecified osteoarthritis, unspecified site; Z79.899 Other long term (current) drug therapy; Z87.891 Personal history of nicotine dependence; Z80.9 Family history of malignant neoplasm, unspecified; Z83.2 Family history of diseases of the blood and blood-forming organs and certain disorders involving the immune mechanism; Z88.8 Allergy status to other drugs, medicaments and biological substances; Z91.030 Bee allergy status
CPT/HCPCS: 36415; 71045; 71275; 80048; 80053; 83735; 84484; 85025; 85379; 85610; 85730; 93458; 99291

== ENCOUNTER → 2019-11-16 | Outpatient (CLI) | payer MEDICARE, OTHER ==
--- NOTE | 2019-11-16 08:29 | XR ---
EXAMINATION TYPE: XR knee limited bilateral DATE OF EXAM: 11/16/2019 CLINICAL HISTORY: pain TECHNIQUE: 2 views of the bilateral knees are submitted. COMPARISON: None. FINDINGS: There is no acute fracture/dislocation. The tri-compartment joint spaces demonstrate mild -to-moderate narrowing involving the medial and lateral tibial femoral joint spaces and patellofemora l joint space. Associated spur formation. Vascular calcifications noted. The overlying soft tissue ap pears unremarkable. IMPRESSION: There is no acute fracture or dislocation.ICD 10 NO FRACTURE, INITIAL EVALUATION
== END | disposition home or self-care (01) ==
LOC: RADXRMAIN 07:59
PROVIDERS: ATTEND Internal Medicine
DX: M25.569 Pain in unspecified knee (principal)

== ENCOUNTER → 2019-12-29 | Outpatient (CLI) | payer MEDICARE, OTHER ==
[2019-12-29 11:01] LABS: African American GFR (CKD) >90 (>60 ml/min/1.73 sqM); Blood Urea Nitrogen 12 mg/dL (7-17); Non-African American GFR(CKD) >90 (>60 ml/min/1.73 sqM)
--- NOTE | 2019-12-29 14:00 | CT ---
EXAMINATION TYPE: CT ChestAbdPelvis w con DATE OF EXAM: 12/29/2019 COMPARISON: Prior CT chest abdomen pelvis 06/04/2019 HISTORY: Rectal cancer, metastatic disease CT DLP: 1165 mGycm Automated exposure control for dose reduction was used. CONTRAST: CT scan of the chest, abdomen and pelvis is performed with Oral Contrast and with IV Contrast, patien t injected with 100 ml mL of Isovue 300. FINDINGS: LUNGS: The lungs show progression in size and number of the diffuse too numerous to count lung masses , there are areas of confluent density in the right upper lobe medially which now measure 3.6 x 3.2 c m and previously measured 2.4 x 2.8 cm. Confluent masses in the right lower lobe and increased in siz e significantly, largest in the left lower lobe measures 4.9 x 3.8 cm and on the right 5.2 x 2.4 cm. There is no pleural or pericardial effusion. MEDIASTINUM: There is similar appearing changes with some progression in the right hilar and subcarin al adenopathy. No pericardial effusion is seen. There are coronary artery calcifications which are dense. AORTA: No significant abnormality is seen. OTHER: No additional significant abnormality is seen. LIVER/GB: There is been interval development of multiple low dense masses within the liver, largest i n the inferior right lobe measures 2 cm, there are approximately 30 or more lesions present the patie nt is post cholecystectomy. PANCREAS: No significant abnormality is seen. SPLEEN: No significant abnormality is seen. ADRENALS: No significant abnormality is seen. KIDNEYS: Retroaortic left renal vein is again seen.. REPRODUCTIVE ORGANS: No gross abnormality seen. BOWEL: At the level of the rectum the abnormal soft tissue extending posteriorly to the coccyx, thic kening of the rectum wall is again noted. FREE AIR: No Free Air visible. ASCITES: None seen. RETROPERITONEAL ADENOPATHY: No retroperitoneal adenopathy is seen. LYMPH NODES: No greater than 1 cm abdominal or pelvic lymph nodes are appreciated. URINARY BLADDER: No significant abnormality is seen. PELVIC ADENOPATHY: None visualized. OSSEOUS STRUCTURES: Compression deformities at L3 and T8 are again noted with associated spinal sten osis. Right 12th rib shows a lytic lesion, bone destruction not seen on prior with some associated so ft tissue. Right acetabulum shows a sclerotic appearance IMPRESSION: There is been progression of patient's metastatic disease.
== END | disposition home or self-care (01) ==
LOC: RADPROMAIN 10:04
PROVIDERS: ATTEND Internal Medicine Hematology & Oncology
DX: C20 Malignant neoplasm of rectum (principal); Z88.9 Allergy status to unspecified drugs, medicaments and biological substances; Z91.030 Bee allergy status
CPT/HCPCS: 82565; 84520; 71260; 74177; 36415; Q9967

== ENCOUNTER 2020-03-10 07:16 | Inpatient (IN) | payer MEDICARE, OTHER ==
[2020-03-10] MEDS ORDERED: ONDANSETRON 4 MG/2 ML VIAL IVP STA (07:39)
[2020-03-10] MEDS ORDERED: PROPARACAINE 0.5% OPHTH DROPS 15 ML BTL BOTH EYES STA (07:39)
[2020-03-10] MEDS ORDERED: FLUORESCEIN STRIPS 1 MG STRIP BOTH EYES ONE (07:39)
[2020-03-10] MEDS ORDERED: diphenhydrAMINE 50 MG/ML 1 ML VIAL IVP STA (07:39)
--- NOTE | 2020-03-10 07:45 | ED ---
Abdominal Pain HPI - General Chief Complaint: Abdominal Pain Stated Complaint: Abdominal pain, eye swelling Time Seen by Provider: 03/10/20 07:27 Source: patient, RN notes reviewed, old records reviewed Mode of arrival: wheelchair Limitations: no limitations - History of Present Illness Initial Comments: Patient is a 65-year-old female who has a history of rectal cancer with metastases and lung and liver who presents emergency department today complai niko of waking up with nausea, general fatigue. She reports that she seemed of blood transfusion yesterday. Patient believes it was whole blood. Patient states that she also woke up this morning complaining of left eye swelling. She reports that she does not know if she got bit by something on her left eyelid or was hit in the eye on accident. She reports she did wake up with some minimal drainage. - Related Data Home Medications Medication Instructions Recorded Confirmed hydroCHLOROthiazide [Hydrodiuril] 12.5 mg PO DAILY 12/15/18 03/10/20 lisinopriL [Zestril] 20 mg PO DAILY 02/24/19 03/10/20 HYDROcodone/APAP 10-325MG [[place] 1 tab PO Q6H PRN 04/14/19 03/10/20 10-325] Mupirocin [Mupirocin 2%] 1 applic TOPICAL BID 03/10/20 03/10/20 Sodium Chloride 5% Ophth Soln 1 drop LEFT EYE QID 03/10/20 03/10/20 [Raad 128] Trifluridine/Tipiracil HCl See Taper PO DIRECTED 03/10/20 03/10/20 [[place] 15 mg-6.14 mg Tablet] Trifluridine/Tipiracil HCl See Taper PO DIRECTED 03/10/20 03/10/20 [[place] 20 mg-8.19 mg Tablet] fentaNYL [Duragesic 50MCG/HR] 50 mcg TOPICAL Q72H 03/10/20 03/10/20 Allergies Allergy/AdvReac Type Severity Reaction Status Date / Time bee venom protein (honey bee) Allergy Anaphylaxis Verified 03/10/20 08:56 capecitabine [From Xeloda] Allergy Unknown Verified 03/10/20 08:56 morphine AdvReac Confusion Verified 03/10/20 08:56 Review of Systems ROS Statement: Those systems with pertinent positive or pertinent negative responses have been documented in the HPI. ROS Other: All systems not noted in ROS Statement are negative. Past Medical History Past Medical History: Cancer, Hypertension, Osteoarthritis (OA) Additional Past Medical History / Comment(s): RECTAL CANCER,SPOTS ON LUNGS AND LIVER" History of Any Multi-Drug Resistant Organisms: None Reported Past Surgical History: Section, Cholecystectomy Additional Past Surgical History / Comment(s): COLONOSCOPY Past Anesthesia/Blood Transfusion Reactions: Postoperative Nausea & Vomiting (PONV) Additional Past Anesthesia/Blood Transfusion Reaction / Comment(s): CLAUSTROPHOBIA Past Psychological History: No Psychological Hx Reported Smoking Status: Former smoker Past Alcohol Use History: None Reported Past Drug Use History: None Reported - Past Family History Mother Family Medical History: Cancer Father Family Medical History: Cancer Sister(s) Family Medical History: Deep Vein Thrombosis (DVT) General Exam - General Exam Comments Initial Comments: 65 year old female, no distress. Limitations: no limitations General appearance: alert, in no apparent distress Head exam: Present: atraumatic, normocephalic, normal inspection Eye exam: Present: normal appearance, PERRL, EOMI, periorbital swelling (Left eye periorbital swelling. Patient has pain with left lateral gaze.), other (Patient has some appearance of proptosis on the left eye. Patient's sclerae intact with no evidence of corneal abrasion on 4 scene eye exam. Intraocular pressure on the left eye was 22 right eye was 14.). Absent: scleral icterus, conjunctival injection ENT exam: Present: normal oropharynx, mucous membranes moist. Absent: normal exam, mucous membranes dry, TM's normal bilaterally, normal external ear exam Neck exam: Present: normal inspection, full ROM. Absent: tenderness, meningismus, lymphadenopathy Respiratory exam: Present: normal lung sounds bilaterally. Absent: respiratory distress, wheezes, rales, rhonchi, stridor Cardiovascular Exam: Present: regular rate, normal rhythm, normal heart sounds. Absent: systolic murmur, diastolic murmur, rubs, gallop, clicks GI/Abdominal exam: Present: soft, normal bowel sounds. Absent: distended, tenderness, guarding, rebound, rigid Extremities exam: Present: normal inspection, full ROM, normal capillary refill. Absent: tenderness, pedal edema, joint swelling, calf tenderness Back exam: Present: normal inspection Neurological exam: Present: alert, oriented X3, CN II-XII intact Psychiatric exam: Present: normal affect, normal mood Skin exam: Present: warm, dry, intact, normal color. Absent: rash Course Vital Signs 03/10/20 03/10/20 07:23 07:58 Temperature 98.5 F Pulse Rate 95 Respiratory 18 Rate Blood Pressure 120/84 O2 Sat by Pulse 96 Oximetry - Reevaluation(s) Reevaluation #1: 03/10/20 11:14 Waiting call back from Pt oncologist. Medical Decision Making - Medical Decision Making 65-year-old female with a history of rectal cancer with palliative care with known metastases to liver and lungs presents emergency room today with nausea, feeling weak and left eye pain and swelling. Patient reports that she had a blood transfusion yesterday without any significant reaction. She states that she woke up today with the nausea and sudden onset of left eye swelling. Patient states that she is no visual changes. On exam she is evidence of appearance of swelling and possible proptosis. Intraocular pressure of the left eye was 22 right eye was 14. Patient had labs obtained. She was found to be hypokalemic at 2.7 potassium. Is given IV fluids and oral supplementation of potassium. Computed tomography scan of the brain and orbits showing concern for a mass with possible invasion of lateral rectus muscle. This is likely related to patient's history of metastatic rectal cancer. Discussed case with Dr. Stanton, whom also examined pt. Patient case was then discussed with Cecelia Russell [employer] for Dr. Bryson and recommends admission with IV steroids. Patient will be admitted this time for hypokalemia and periorbital mass. - Lab Data Result diagrams: 03/10/20 07:49 03/10/20 07:49 Lab Results 03/10/20 03/10/20 03/10/20 Range/Units 07:49 07:49 07:49 WBC 6.6 (3.8-10.6) k/uL RBC 4.02 (3.80-5.40) m/uL Hgb 10.8 L (11.4-16.0) gm/dL Hct 35.0 (34.0-46.0) % MCV 86.9 (80.0-100.0) fL MCH 26.8 (25.0-35.0) pg MCHC 30.9 L (31.0-37.0) g/dL RDW 24.9 H (11.5-15.5) % Plt Count 498 H (150-450) k/uL Neutrophils % 73 % Lymphocytes % 15 % Monocytes % 9 % Eosinophils % 0 % Basophils % 0 % Neutrophils # 4.8 (1.3-7.7) k/uL Lymphocytes # 1.0 (1.0-4.8) k/uL Monocytes # 0.6 (0-1.0) k/uL Eosinophils # 0.0 (0-0.7) k/uL Basophils # 0.0 (0-0.2) k/uL Hypochromasia Marked Poikilocytosis Slight Anisocytosis Marked Microcytosis Slight Macrocytosis Slight PT (9.0-12.0) sec INR (<1.2) APTT (22.0-30.0) sec Sodium 134 L (137-145) mmol/L Potassium 2.7 L* (3.5-5.1) mmol/L Chloride 93 L (98-107) mmol/L Carbon Dioxide 37 H (22-30) mmol/L Anion Gap 4 mmol/L BUN 12 (7-17) mg/dL Creatinine 0.49 L (0.52-1.04) mg/dL Est GFR (CKD-EPI)AfAm >90 (>60 ml/min/1.73 sqM) Est GFR (CKD-EPI)NonAf >90 (>60 ml/min/1.73 sqM) Glucose 113 H (74-99) mg/dL Calcium 8.6 (8.4-10.2) mg/dL Magnesium (1.6-2.3) mg/dL Total Bilirubin 1.2 (0.2-1.3) mg/dL AST 53 H (14-36) U/L ALT 9 (4-34) U/L Alkaline Phosphatase 394 H (38-126) U/L Total Protein 6.2 L (6.3-8.2) g/dL Albumin 3.0 L (3.5-5.0) g/dL Urine Color Yellow Urine Appearance Clear (Clear) Urine pH 5.5 (5.0-8.0) Ur Specific [place] 1.020 (1.001-1.035) Urine Protein Trace H (Negative) Urine Glucose (UA) Negative (Negative) Urine Ketones Negative (Negative) Urine Blood Negative (Negative) Urine Nitrite Negative (Negative) Urine Bilirubin Negative (Negative) Urine Urobilinogen 6.0 (<2.0) mg/dL Ur Leukocyte Esterase Negative (Negative) 03/10/20 03/10/20 Range/Units 07:49 09:52 WBC (3.8-10.6) k/uL RBC (3.80-5.40) m/uL Hgb (11.4-16.0) gm/dL Hct (34.0-46.0) % MCV (80.0-100.0) fL MCH (25.0-35.0) pg MCHC (31.0-37.0) g/dL RDW (11.5-15.5) % Plt Count (150-450) k/uL Neutrophils % % Lymphocytes % % Monocytes % % Eosinophils % % Basophils % % Neutrophils # (1.3-7.7) k/uL Lymphocytes # (1.0-4.8) k/uL Monocytes # (0-1.0) k/uL Eosinophils # (0-0.7) k/uL Basophils # (0-0.2) k/uL Hypochromasia Poikilocytosis Anisocytosis Microcytosis Macrocytosis PT 11.8 (9.0-12.0) sec INR 1.2 H (<1.2) APTT 23.9 (22.0-30.0) sec Sodium (137-145) mmol/L Potassium (3.5-5.1) mmol/L Chloride (98-107) mmol/L Carbon Dioxide (22-30) mmol/L Anion Gap mmol/L BUN (7-17) mg/dL Creatinine (0.52-1.04) mg/dL Est GFR (CKD-EPI)AfAm (>60 ml/min/1.73 sqM) Est GFR (CKD-EPI)NonAf (>60 ml/min/1.73 sqM) Glucose (74-99) mg/dL Calcium (8.4-10.2) mg/dL Magnesium 2.0 (1.6-2.3) mg/dL Total Bilirubin (0.2-1.3) mg/dL AST (14-36) U/L ALT (4-34) U/L Alkaline Phosphatase (38-126) U/L Total Protein (6.3-8.2) g/dL Albumin (3.5-5.0) g/dL Urine Color Urine Appearance (Clear) Urine pH (5.0-8.0) Ur Specific [place] (1.001-1.035) Urine Protein (Negative) Urine Glucose (UA) (Negative) Urine Ketones (Negative) Urine Blood (Negative) Urine Nitrite (Negative) Urine Bilirubin (Negative) Urine Urobilinogen (<2.0) mg/dL Ur Leukocyte Esterase (Negative) - Radiology Data Radiology results: report reviewed Impression left frontal bone and left superior lateral orbital wall aggressive appearing expansile sclerotic permanent bony lesion with soft tissue component. Primary differential includes malignant etiologies such as metastatic disease or sarcoma. There is minimal inferior and anterior displacement of the left globe and left infraorbital cheek asymmetric skin thickening. There is mass effect and asymmetric enhancement of the left lateral rectus muscle may be due to inflammation or neoplastic involvement. MRI would be of benefit for further characterization. Intracranial portion of the soft tissue bony lesion demon strates no significant mass effect on the left frontal lobe. No midline shift. Disposition Clinical Impression: Metastasis from rectal cancer, Eye swelling, left, Hypokalemia Disposition: ADMITTED IP TO THIS HOSP Condition: Stable Is patient prescribed a controlled substance at d/c from ED?: No Referrals: Sharon Askew MD [Primary Care Provider] - 1-2 days Time of Disposition: 11:47
[2020-03-10 07:57] LABS: Appearance,Urine Clear (Clear); Bilirubin,Urine Negative (Negative); Blood,Urine Negative (Negative); Color,Urine Yellow; Glucose,Urine (UA) Negative (Negative); Ketones,Urine Negative (Negative); Leukocyte Esterase,Urine Negative (Negative); Nitrite,Urine Negative (Negative); PH, Urine 5.5 (5.0-8.0); Protein,Urine Trace (Negative)
[2020-03-10 08:02] LABS: Anisocytosis Marked; Basophils % (A) 0 %; Eosinophils % (A) 0 %; HGB 10.8 gm/dL (11.4-16.0); Hypochromasia Marked; Lymphocytes % (A) 15 %; MCH 26.8 pg (25.0-35.0); MCHC 30.9 g/dL (31.0-37.0); MCV 86.9 fL (80.0-100.0); Macrocytosis Slight; Mean Platelet Volume 7.2; Microcytosis Slight; Monocytes # (A) 0.6 k/uL (0-1.0); Monocytes % (A) 9 %; Neutrophils # (A) 4.8 k/uL (1.3-7.7); Neutrophils % (A) 73 %; Platelet Count 498 k/uL (150-450); Poikilocytosis Slight; RBC 4.02 m/uL (3.80-5.40); RDW 24.9 % (11.5-15.5); WBC 6.6 k/uL (3.8-10.6)
[2020-03-10 08:06] LABS: ALT 9 U/L (4-34); AST 53 U/L (14-36); African American GFR (CKD) >90 (>60 ml/min/1.73 sqM); Alkaline Phosphatase 394 U/L (38-126); Anion Gap 4 mmol/L; Blood Urea Nitrogen 12 mg/dL (7-17); Calcium 8.6 mg/dL (8.4-10.2); Carbon Dioxide 37 mmol/L (22-30); Chloride 93 mmol/L (98-107); Glucose 113 mg/dL (74-99); Non-African American GFR(CKD) >90 (>60 ml/min/1.73 sqM); Sodium 134 mmol/L (137-145); Total Bilirubin 1.2 mg/dL (0.2-1.3); Total Protein 6.2 g/dL (6.3-8.2)
[2020-03-10 08:21] LABS: Potassium 2.7 mmol/L (3.5-5.1)
[2020-03-10] MEDS ORDERED: POTASSIUM CHLORIDE ER 20 MEQ TAB.ER PO STA (08:38)
[2020-03-10] MEDS ORDERED: RX INFO: IV CONTRAST WAS GIVEN 1 EACH MISC MISCELLANE PRN (09:14)
[2020-03-10] MEDS ORDERED: HYDROcodone/APAP 5-325MG 1 EACH TAB PO STA (09:16)
[2020-03-10] MEDS: SODIUM CHLORIDE 0.9% 1,000 ML IV SCH ×2 (10:04→20:20)
[2020-03-10 10:14] LABS: INR 1.2 (<1.2); Partial Thromboplastin Time 23.9 sec (22.0-30.0); Prothrombin Time 11.8 sec (9.0-12.0)
--- NOTE | 2020-03-10 10:42 | CT ---
EXAMINATION TYPE: CT brain w con, CT orbits w con DATE OF EXAM: 03/10/2020 COMPARISON: CT brain 04/14/2019. HISTORY: left eye swelling. History of metastatic rectal cancer. CT DLP: 1128.4 mGycm Automated exposure control for dose reduction was used. CONTRAST: CT scan of the head is performed with IV Contrast. Multiple thin slice images were obtained through t he orbits with IV contrast. Reformats were performed. Patient injected with 100 mL of Isovue 300. FINDINGS: Involving the left superior and lateral orbital wall and left frontal bone, there is aggressive appea ring transdiploic bony sclerosis and permeation, with aggressive periosteal reaction. There is associ ated soft tissue component throughout, the largest of which is at the superolateral portion of the or bit measuring approximately 4.1 x 3.2 cm in AP and transverse dimension (206:21), with abutment and m ild inferior anterior displacement/mass effect on the left globe. There is also abutment and mass eff ect on the left lateral rectus muscle, with asymmetric muscle belly enhancement versus the right side (206:16, 208:27). The intracranial portion of the soft tissue component and bony lesion is extra-axi al with no significant mass effect on the left frontal lobe. There is asymmetric skin thickening of t he left infraorbital cheek. The globes are grossly symmetric. Besides the left lateral rectus muscle, the remaining intraocular muscles, optic nerves, and retrobulbar blood vessels are grossly symmetric from right to left. The intracranial portion of the soft tissue component and bony lesion is extra-axial with no signific ant mass effect on the left frontal lobe. There is no intra-axial enhancing mass or midline shift jesse ntified. Ventricles are normal in size and position. No extra-axial fluid collections. The visualized paranasal sinuses are clear. The visualized mastoid air cells are clear. IMPRESSION: 1. Left frontal bone and left superolateral orbital wall aggressive appearing expansile sclerotic pe rmeative bony lesion with soft tissue component. Primary differential includes malignant etiologies s uch as metastatic disease or sarcoma. 2. There is minimal inferior and anterior displacement of the left globe, and left infraorbital zaid k asymmetric skin thickening. There is mass effect and asymmetric enhancement of the left lateral rec tus muscle which may be due to inflammation versus neoplastic involvement. MRI would likely be of ross efit for further characterization. 3. Intracranial portion of the soft tissue/bony lesion demonstrates no significant mass effect on th e left frontal lobe. No midline shift. Dr. Gabrielle Mcallister discussed findings with Francisca Pizarro, LETITIA via the phone on today at 10:30 AM, a nd results were acknowledged.
[2020-03-10] MEDS ORDERED: DEXAMETHASONE SOD PHOSPHATE 10 MG/ML 1 ML VIAL IV STA (11:28)
[2020-03-10] MEDS ORDERED: Potassium Replacement Protocol 1 EACH MISC MISCELLANE PRN (11:41)
[2020-03-10] MEDS ORDERED: NALOXONE 0.4 MG/ML 1 ML VIAL IV PRN (11:48)
[2020-03-10] MEDS ORDERED: ACETAMINOPHEN TAB 325 MG TAB PO PRN (11:48)
[2020-03-10] MEDS ORDERED: ONDANSETRON 4 MG/2 ML VIAL IVP PRN (11:48)
[2020-03-10] MEDS ORDERED: MORPHINE SULFATE 4 MG/ML SYRINGE IV PRN (11:48)
[2020-03-10] MEDS ORDERED: IBUPROFEN 400 MG TAB PO PRN (11:48)
[2020-03-10] MEDS ORDERED: KETOROLAC 15 MG/ML 1 ML VIAL IVP PRN (11:48)
[2020-03-10] MEDS: POTASSIUM CHLORIDE 10 MEQ in WATER FOR INJECTION 1 100ML.BAG IVPB SCH ×6 (11:51→18:07)
[2020-03-10] MEDS ORDERED: IPRATROPIUM-ALBUTEROL 3 ML NEB INHALATION PRN (12:19)
--- NOTE | 2020-03-10 15:46 | P.HPIM ---
History of Present Illness 65-year-old female who has a history of rectal cancer with metastases and lung and liver who presents emergency department today complaining of waking up with nausea, general fatigue. She reports that she seemed of blood transfusion yesterday. Patient believes it was whole blood. Patient states that she also woke up this morning complaining of left eye swelling. She reports that she does not know if she got bit by something on her left eyelid or was hit in the eye on accident. She reports she did wake up with some minimal drainage. Patient's nausea vomiting resolved patient is single and swelling in the left eye patient had an orbital CT which showed metastatic lesion to the bone to the left superolateral orbital wall. There is minimal displacement of the left globe with some inflammation of the lateral rectus. Patient was started on Decadron oncology was consulted patient is admitted. Patient denied any double vision did have some blurry vision Review of Systems REVIEW OF SYSTEMS: CONSTITUTIONAL: No fever, no malaise, no fatigue. HEENT: As mentioned in HPI CARDIOVASCULAR: No chest pain, orthopnea, PND, no palpitations, no syncope. PULMONARY: No shortness of breath, no cough, no hemoptysis. GASTROINTESTINAL: As mentioned in HPI NEUROLOGICAL: No headaches, no weakness, no numbness. HEMATOLOGICAL: Denies any bleeding or petechiae. GENITOURINARY: Denies any burning micturition, frequency, or urgency. MUSCULOSKELETAL/RHEUMATOLOGICAL: Denies any joint pain, swelling, or any muscle pain. ENDOCRINE: Denies any polyuria or polydipsia. The rest of the 14-point review of systems is negative. Past Medical History Past Medical History: Cancer, Eye Disorder, Hypertension, Osteoarthritis (OA) Additional Past Medical History / Comment(s): Rectal cancer with metastasis to lung/liver/kidney and back-pt states treatments got rid of back mets, she has gone thru chemo both IV/oral and last oral chemo was 3 weeks ago, she has also had radiation treatments, anemia with transfusion 03/09/20, chronic pain from arthritis in multiple joints, start of bilateral cataracts, occasionally incontinent of urine. History of Any Multi-Drug Resistant Organisms: None Reported Past Surgical History: Section, Cholecystectomy, Heart Catheterization, Tubal Ligation Additional Past Surgical History / Comment(s): Colonoscopy, port-pt states is nonfunctioning. Past Anesthesia/Blood Transfusion Reactions: Postoperative Nausea & Vomiting (PONV) Additional Past Anesthesia/Blood Transfusion Reaction / Comment(s): Pt states she received her first blood transfusion on 03/09/20 without reaction. She has clausterphobia. Smoking Status: Former smoker - Past Family History Mother Family Medical History: Cancer Additional Family Medical History / Comment(s): Mother had uterine cancer. Father Family Medical History: Cancer Additional Family Medical History / Comment(s): Father had penile cancer. Sister(s) Family Medical History: Vascular Disorder Additional Family Medical History / Comment(s): Sister had a aneurysm Medications and Allergies Home Medications Medication Instructions Recorded Confirmed Type hydroCHLOROthiazide [Hydrodiuril] 12.5 mg PO DAILY 12/15/18 03/10/20 History lisinopriL [Zestril] 20 mg PO DAILY 02/24/19 03/10/20 History HYDROcodone/APAP 10-325MG [[place] 1 tab PO Q6H PRN 04/14/19 03/10/20 History 10-325] Mupirocin [Mupirocin 2%] 1 applic TOPICAL BID 03/10/20 03/10/20 History Sodium Chloride 5% Ophth Soln 1 drop LEFT EYE QID 03/10/20 03/10/20 History [Raad 128] Trifluridine/Tipiracil HCl See Taper PO DIRECTED 03/10/20 03/10/20 History [Lonsurf 15 mg-6.14 mg Tablet] Trifluridine/Tipiracil HCl See Taper PO DIRECTED 03/10/20 03/10/20 History [Lonsurf 20 mg-8.19 mg Tablet] fentaNYL [Duragesic 50MCG/HR] 50 mcg TOPICAL Q72H 03/10/20 03/10/20 History Allergies Allergy/AdvReac Type Severity Reaction Status Date / Time bee venom protein (honey bee) Allergy Anaphylaxis Verified 03/10/20 08:56 capecitabine [From Xeloda] Allergy Unknown Verified 03/10/20 08:56 morphine AdvReac Confusion Verified 03/10/20 08:56 Physical Exam Vitals: Vital Signs Temp Pulse Pulse Resp BP BP Pulse Ox 03/10/20 13:35 98.1 F 79 18 128/87 92 L 03/10/20 12:30 98.5 F 87 16 114/79 94 L 03/10/20 11:54 90 18 117/87 94 L 03/10/20 07:58 98.5 F 03/10/20 07:23 95 18 120/84 96 Intake and Output 03/10/20 03/10/20 03/10/20 06:59 14:59 22:59 Other: # Voids 1 Weight 53.07 kg PHYSICAL EXAMINATION: GENERAL: The patient is alert and oriented x3, not in any acute distress. Well developed, well nourished. HEENT: Significantly swollen left eye without any pain with movements of the ey e. Left superior eyelid is significantly swollen. EOMI. No scleral icterus. No conjunctival pallor. Normocephalic, atraumatic. No pharyngeal erythema. No thyromegaly. CARDIOVASCULAR: S1 and S2 present. No murmurs, rubs, or gallops. PULMONARY: Chest is clear to auscultation, no wheezing or crackles. ABDOMEN: Soft, nontender, nondistended, normoactive bowel sounds. No palpable organomegaly. MUSCULOSKELETAL: No joint swelling or deformity. EXTREMITIES: No cyanosis, clubbing, or pedal edema. NEUROLOGICAL: Gross neurological examination did not reveal any focal deficits. SKIN: No rashes. Results CBC & Chem 7: 03/10/20 07:49 03/10/20 07:49 Labs: Abnormal Lab Results - Last 24 Hours (Table) 03/10/20 03/10/20 03/10/20 Range/Units 07:49 07:49 07:49 Hgb 10.8 L (11.4-16.0) gm/dL MCHC 30.9 L (31.0-37.0) g/dL RDW 24.9 H (11.5-15.5) % Plt Count 498 H (150-450) k/uL INR (<1.2) Sodium 134 L (137-145) mmol/L Potassium 2.7 L* (3.5-5.1) mmol/L Chloride 93 L (98-107) mmol/L Carbon Dioxide 37 H (22-30) mmol/L Creatinine 0.49 L (0.52-1.04) mg/dL Glucose 113 H (74-99) mg/dL AST 53 H (14-36) U/L Alkaline Phosphatase 394 H (38-126) U/L Total Protein 6.2 L (6.3-8.2) g/dL Albumin 3.0 L (3.5-5.0) g/dL Urine Protein Trace H (Negative) 03/10/20 Range/Units 09:52 Hgb (11.4-16.0) gm/dL MCHC (31.0-37.0) g/dL RDW (11.5-15.5) % Plt Count (150-450) k/uL INR 1.2 H (<1.2) Sodium (137-145) mmol/L Potassium (3.5-5.1) mmol/L Chloride (98-107) mmol/L Carbon Dioxide (22-30) mmol/L Creatinine (0.52-1.04) mg/dL Glucose (74-99) mg/dL AST (14-36) U/L Alkaline Phosphatase (38-126) U/L Total Protein (6.3-8.2) g/dL Albumin (3.5-5.0) g/dL Urine Protein (Negative) Thrombosis Risk Factor Assmnt - Choose All That Apply Any of the Below Risk Factors Present?: Yes Other Risk Factors: Yes Each Risk Factor Represents 2 Points: Age 61-74 years, Malignancy Other congenital or acquired thrombophilia - If yes, enter type in comment: No Thrombosis Risk Factor Assessment Total Risk Factor Score: 4 Thrombosis Risk Factor Assessment Level: Moderate Risk Assessment and Plan Plan: -Metastasis and inflammation to the left eye and left orbit: Patient has rectal cancer with the metastatic disease is on chemotherapy presently oral chemotherapy. Patient to completed intravenous chemotherapy. Patient will be started on Decadron will be monitored. Patient doesn't have any symptoms of lateral left apart rectus palsy does have inflammation of the left lateral rectus muscle along with sick significant orbital swelling. No evidence of colitis at this time. The symptoms should improve with Decadron. -Nausea vomiting secondary to chemotherapy may have some gastritis as well. Patient will be started on Protonix for this and Zofran on as-needed basis -Rectal cancer: Her resumption of oral chemotherapy as per oncology. -Hypertension -Hypovolemic hyponatremia hydro-chlorothiazide will be held and patient will be continued on IV fluids -Hypokalemia secondary to hydrochlorothiazide which will be held -Due to prophylaxis with the Lovenox
--- NOTE | 2020-03-10 16:25 | P.CONS ---
History of Present Illness - Reason for Consult Consult date: 03/10/20 Pain and pressure in eye Requesting physician: Tyrell Stanton - Chief Complaint Left eye swelling - History of Present Illness Radha is a pleasant patient well nown to us for treatment of her metastatic colon cancer, primary oncologist Dr. londono. She has unfortunetely progressed through many lines of therapy and most recently been on treatment with lonsurf with the past few weeks persistent complaints of increased weakness and paiun. She was seen and evaluated in office on Friday this past week and Neutropenia and Hemoglobin 6.7 requiring transfusion. Her lonsurf placed on hold that day and she is status post transfusion yesterday 03/09/20. She woke this mmorning with increased left eye swelling shut, she states it had a greenish discharge as well. Imaging reveals concern for metastatic bone lesion pressing on orbital space. MRI of the brain is pending and dr. Mckeon has been consulted. Review of Systems All systems: negative Constitutional: Reports as per HPI Past Medical History Past Medical History: Cancer, Eye Disorder, Hypertension, Osteoarthritis (OA) Additional Past Medical History / Comment(s): Rectal cancer with metastasis to lung/liver/kidney and back-pt states treatments got rid of back mets, she has gone thru chemo both IV/oral and last oral chemo was 3 weeks ago, she has also had radiation treatments, anemia with transfusion 03/09/20, chronic pain from arthritis in multiple joints, start of bilateral cataracts, occasionally incontinent of urine. History of Any Multi-Drug Resistant Organisms: None Reported Past Surgical History: Section, Cholecystectomy, Heart Catheterization, Tubal Ligation Additional Past Surgical History / Comment(s): Colonoscopy, port-pt states is nonfunctioning. Past Anesthesia/Blood Transfusion Reactions: Postoperative Nausea & Vomiting (PONV) Additional Past Anesthesia/Blood Transfusion Reaction / Comm: Pt states she received her first blood transfusion on 03/09/20 without reaction. She has clausterphobia. Smoking Status: Former smoker - Past Family History Mother Family Medical History: Cancer Additional Family Medical History / Comment(s): Mother had uterine cancer. Father Family Medical History: Cancer Additional Family Medical History / Comment(s): Father had penile cancer. Sister(s) Family Medical History: Vascular Disorder Additional Family Medical History / Comment(s): Sister had a aneurysm Medications and Allergies Home Medications Medication Instructions Recorded Confirmed Type hydroCHLOROthiazide [Hydrodiuril] 12.5 mg PO DAILY 12/15/18 03/10/20 History lisinopriL [Zestril] 20 mg PO DAILY 02/24/19 03/10/20 History HYDROcodone/APAP 10-325MG [[place] 1 tab PO Q6H PRN 04/14/19 03/10/20 History 10-325] Mupirocin [Mupirocin 2%] 1 applic TOPICAL BID 03/10/20 03/10/20 History Sodium Chloride 5% Ophth Soln 1 drop LEFT EYE QID 03/10/20 03/10/20 History [Raad 128] Trifluridine/Tipiracil HCl See Taper PO DIRECTED 03/10/20 03/10/20 History [Lonsurf 15 mg-6.14 mg Tablet] Trifluridine/Tipiracil HCl See Taper PO DIRECTED 03/10/20 03/10/20 History [Lonsurf 20 mg-8.19 mg Tablet] fentaNYL [Duragesic 50MCG/HR] 50 mcg TOPICAL Q72H 03/10/20 03/10/20 History Allergies Allergy/AdvReac Type Severity Reaction Status Date / Time bee venom protein (honey bee) Allergy Anaphylaxis Verified 03/10/20 08:56 capecitabine [From Xeloda] Allergy Unknown Verified 03/10/20 08:56 morphine AdvReac Confusion Verified 03/10/20 08:56 Physical Exam Vitals: Vital Signs Temp Pulse Pulse Resp BP BP Pulse Ox 03/10/20 13:35 98.1 F 79 18 128/87 92 L 03/10/20 12:30 98.5 F 87 16 114/79 94 L 03/10/20 11:54 90 18 117/87 94 L 03/10/20 07:58 98.5 F 03/10/20 07:23 95 18 120/84 96 Intake and Output 03/10/20 03/10/20 03/10/20 06:59 14:59 22:59 Other: # Voids 1 Weight 53.07 kg - Constitutional General appearance: cooperative, thin - EENT Left ye swelling and face assympterical Eyes: abnormal pupil ENT: hard of hearing, NA/AT - Respiratory Respiratory: bilateral: diminished - Cardiovascular Rhythm: regular Heart sounds: normal: S1, S2 - Gastrointestinal Right upper ext pain and swelling General gastrointestinal: soft - Integumentary Integumentary: pale - Neurologic [place] - Musculoskeletal Musculoskeletal: generalized weakness - Psychiatric Psychiatric: A&O x's 3 Results CBC & Chem 7: 03/10/20 07:49 03/10/20 07:49 Labs: Abnormal Lab Results - Last 24 Hours (Table) 03/10/20 03/10/20 03/10/20 Range/Units 07:49 07:49 07:49 Hgb 10.8 L (11.4-16.0) gm/dL MCHC 30.9 L (31.0-37.0) g/dL RDW 24.9 H (11.5-15.5) % Plt Count 498 H (150-450) k/uL INR (<1.2) Sodium 134 L (137-145) mmol/L Potassium 2.7 L* (3.5-5.1) mmol/L Chloride 93 L (98-107) mmol/L Carbon Dioxide 37 H (22-30) mmol/L Creatinine 0.49 L (0.52-1.04) mg/dL Glucose 113 H (74-99) mg/dL AST 53 H (14-36) U/L Alkaline Phosphatase 394 H (38-126) U/L Total Protein 6.2 L (6.3-8.2) g/dL Albumin 3.0 L (3.5-5.0) g/dL Urine Protein Trace H (Negative) 03/10/20 Range/Units 09:52 Hgb (11.4-16.0) gm/dL MCHC (31.0-37.0) g/dL RDW (11.5-15.5) % Plt Count (150-450) k/uL INR 1.2 H (<1.2) Sodium (137-145) mmol/L Potassium (3.5-5.1) mmol/L Chloride (98-107) mmol/L Carbon Dioxide (22-30) mmol/L Creatinine (0.52-1.04) mg/dL Glucose (74-99) mg/dL AST (14-36) U/L Alkaline Phosphatase (38-126) U/L Total Protein (6.3-8.2) g/dL Albumin (3.5-5.0) g/dL Urine Protein (Negative) CT Scan - head: report reviewed Assessment and Plan (1) Eye swelling, left Current Visit: Yes Status: Acute Code(s): H57.89 - OTHER SPECIFIED DISORDERS OF EYE AND ADNEXA SNOMED Code(s): 91204119 (2) Hypokalemia Current Visit: Yes Status: Acute Code(s): E87.6 - HYPOKALEMIA SNOMED Code(s): 54886927 (3) Metastasis from rectal cancer Current Visit: Yes Status: Acute Code(s): C79.9 - SECONDARY MALIGNANT NEOPLASM OF UNSPECIFIED SITE; C20 - MALIGNANT NEOPLASM OF RECTUM SNOMED Code(s): 748437331 Plan: Plan for MRI to further evaluate - Start Dexamethasone 4mg q6 and PPI - Continue home pain meds - Continue to Hold Lonsurf - Discussed with Dr. Stanton in ED and Dr. Mckeon for possible palliative xrt Physician Attest: I have completed the full history and physical and agree with above dictation, dictated as a scribe.
--- NOTE | 2020-03-10 17:21 | US ---
EXAMINATION TYPE: US venous doppler duplex UE RT DATE OF EXAM: 03/10/2020 COMPARISON: NONE CLINICAL HISTORY: right upper arm pain, r/o dvt. right arm pain, IV right antecubital fossa SIDE PERFORMED: right Right Arm: no evidence of DVT as visualized IMPRESSION: No evidence of deep vein thrombosis in the right arm.
[2020-03-10] MEDS: DEXAMETHASONE SOD PHOSPHATE 4 MG/ML 1 ML VIAL IV SCH ×2 (18:09→23:54)
[2020-03-10] MEDS: SODIUM CHLORIDE 5% OPHTH DROPS 15 ML BTL LEFT EYE SCH ×2 (18:10→22:04)
[2020-03-10] MEDS: HYDROcodone/APAP 10-325MG 1 EACH TAB PO PRN (18:25)
[2020-03-11] MEDS: DEXAMETHASONE SOD PHOSPHATE 4 MG/ML 1 ML VIAL IV SCH ×2 (05:33→13:30)
[2020-03-11] MEDS: HYDROcodone/APAP 10-325MG 1 EACH TAB PO PRN ×2 (05:33→13:37)
[2020-03-11] MEDS: SODIUM CHLORIDE 0.9% 1,000 ML IV SCH (05:35)
[2020-03-11 05:38] VITALS: PULSE 70
[2020-03-11] MEDS ORDERED: ENOXAPARIN 40 MG/0.4 ML SYRINGE SQ SCH (09:00)
[2020-03-11] MEDS ORDERED: lisinopriL 20 MG TAB PO SCH (09:00)
[2020-03-11] MEDS ORDERED: PANTOPRAZOLE 40 MG/10 ML VIAL IV SCH (09:00)
[2020-03-11 09:30] LABS: African American GFR (CKD) 128.5 (60.0-200.0); Anion Gap 8.7 mmol/L (4.00-12.00); BUN/Creat Ratio 22.5 Ratio (12.00-20.00); Calcium 8.9 mg/dL (8.7-10.3); Carbon Dioxide 30.3 mmol/L (21.6-31.8); Magnesium 1.8 mg/dL (1.5-2.4); Non-African American GFR(CKD) 110.8 (60.0-200.0); Potassium 4.1 mmol/L (3.5-5.5)
[2020-03-11] MEDS: SODIUM CHLORIDE 5% OPHTH DROPS 15 ML BTL LEFT EYE SCH ×2 (09:50→13:33)
--- NOTE | 2020-03-11 10:26 | P.CONS ---
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 She was previously treated with radiotherapy to the pelvis at an outside institution. She underwent palliative treatment due to pain from lumbar spine metastasis finishing on 06/17/2017. She later underwent repeat treatment due to progression of bone disease/symptomatic progression in the L-spine finishing 03/26/19. Most recently, she received 20 Gy in 5 fractions to the lower T-spine due to pain and spinal canal invasion finishing on 05/27/19. She has progressed through several lines of therapy and is currently on Lonsurf. She woke up the day of admission and noticed left eye swelling and small amount of discharge. She was concerned she had a bug bite. She presented to the hospital as she was also feeling a bit fatigued and nauesous. She underwent a CT brain on 03/10 showing a left frontal bone lesion involving the orbital wall with slight displacement of the orbit due to soft tissue extension. She states her vision is unchanged. The eye was uncomfortable this AM, but since initiation of decadron she feels the swelling and discomfort is actually improved. Review of Systems Constitutional: Reports fatigue, Denies chills, Denies fever Eyes: left discharge, left irritation, denies blurred vision, denies bulging eye, denies decreased vision, denies diplopia, denies dry eye Ears: deny: decreased hearing Ears, nose, mouth and throat: Denies headache Cardiovascular: Denies chest pain Respiratory: Denies cough Gastrointestinal: Denies abdominal pain Genitourinary: Denies flank pain Integumentary: Denies rash, Denies sores Neurological: Denies aphasia, Denies confusion, Denies convulsions, Denies double vision Psychiatric: Denies confusion Past Medical History Past Medical History: Cancer, Eye Disorder, Hypertension, Osteoarthritis (OA) Additional Past Medical History / Comment(s): Rectal cancer with metastasis to lung/liver/kidney and back-pt states treatments got rid of back mets, she has gone thru chemo both IV/oral and last oral chemo was 3 weeks ago, she has also had radiation treatments, anemia with transfusion 03/09/20, chronic pain from arthritis in multiple joints, start of bilateral cataracts, occasionally incontinent of urine. History of Any Multi-Drug Resistant Organisms: None Reported Past Surgical History: Section, Cholecystectomy, Heart Catheterization, Tubal Ligation Additional Past Surgical History / Comment(s): Colonoscopy, port-pt states is nonfunctioning. Past Anesthesia/Blood Transfusion Reactions: Postoperative Nausea & Vomiting (PONV) Additional Past Anesthesia/Blood Transfusion Reaction / Comm: Pt states she received her first blood transfusion on 03/09/20 without reaction. She has clausterphobia. Smoking Status: Former smoker - Past Family History Mother Family Medical History: Cancer Additional Family Medical History / Comment(s): Mother had uterine cancer. Father Family Medical History: Cancer Additional Family Medical History / Comment(s): Father had penile cancer. Sister(s) Family Medical History: Vascular Disorder Additional Family Medical History / Comment(s): Sister had a aneurysm Medications and Allergies Home Medications Medication Instructions Recorded Confirmed Type hydroCHLOROthiazide [Hydrodiuril] 12.5 mg PO DAILY 12/15/18 03/10/20 History lisinopriL [Zestril] 20 mg PO DAILY 02/24/19 03/10/20 History HYDROcodone/APAP 10-325MG [[place] 1 tab PO Q6H PRN 04/14/19 03/10/20 History 10-325] Mupirocin [Mupirocin 2%] 1 applic TOPICAL BID 03/10/20 03/10/20 History Sodium Chloride 5% Ophth Soln 1 drop LEFT EYE QID 03/10/20 03/10/20 History [Raad 128] Trifluridine/Tipiracil HCl See Taper PO DIRECTED 03/10/20 03/10/20 History [Lonsurf 15 mg-6.14 mg Tablet] Trifluridine/Tipiracil HCl See Taper PO DIRECTED 03/10/20 03/10/20 History [[place]f 20 mg-8.19 mg Tablet] fentaNYL [Duragesic 50MCG/HR] 50 mcg TOPICAL Q72H 03/10/20 03/10/20 History Allergies Allergy/AdvReac Type Severity Reaction Status Date / Time bee venom protein (honey bee) Allergy Anaphylaxis Verified 03/10/20 08:56 capecitabine [From Xeloda] Allergy Unknown Verified 03/10/20 08:56 morphine AdvReac Confusion Verified 03/10/20 08:56 Physical Exam Vitals: Vital Signs Temp Pulse Pulse Resp BP BP Pulse Ox 03/11/20 05:38 98.1 F 70 17 126/79 95 03/10/20 21:52 97.6 F 67 17 124/81 96 03/10/20 13:35 98.1 F 79 18 128/87 92 L 03/10/20 12:30 98.5 F 87 16 114/79 94 L 03/10/20 11:54 90 18 117/87 94 L Intake and Output 03/10/20 03/11/20 03/11/20 22:59 06:59 14:59 Intake Total 990 1390 Balance 990 1390 Intake: Intake, IV Titration 400 800 Amount Sodium Chloride 0.9% 1, 400 800 000 ml @ 100 mls/hr IV . Q10H [facility] Rx#:[id number] Oral 590 590 Other: Voiding Method Diaper Incontinent # Voids 3 3 # Bowel Movements 2 1 - Constitutional General appearance: average body habitus - EENT Eyes: no abnormal pupil, EOMI, PERRLA, no normal appearance (Left eye swollen, ptosis noted, firm mass felt along lateral frontal bone - extends to hairline) - Neck Neck: no lymphadenopathy - Respiratory Respiratory: bilateral: CTA - Cardiovascular Rhythm: regular - Integumentary Integumentary: no calor, no rash - Neurologic Neurologic: CNII-XII intact - Musculoskeletal Musculoskeletal: strength equal bilaterally - Psychiatric Psychiatric: A&O x's 3, appropriate affect Results CBC & Chem 7: 03/10/20 07:49 03/11/20 03:25 Labs: Abnormal Lab Results - Last 24 Hours (Table) 03/10/20 03/11/20 Range/Units 07:49 03:25 Creatinine 0.4 L (0.6-1.5) mg/dL BUN/Creatinine Ratio 22.50 H (12.00-20.00) Ratio Glucose 134 H (70-110) mg/dL Carcinoembryonic Ag 542.7 H (0.0-4.9) ng/mL CT Scan - head: report reviewed, image reviewed Assessment and Plan Plan: davian Cobb is a 65-year-old Female with history of a stage IVB (cT3, cN2, 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 She was previously treated with radiotherapy to the pelvis at an outside institution. She underwent palliative treatment due to pain from lumbar spine metastasis finishing on 06/17/2017. She later underwent repeat treatment due to progression of bone disease/symptomatic progression in the L-spine finishing 03/26/19. Most recently, she received 20 Gy in 5 fractions to the lower T-spine due to pain and spinal canal invasion finishing on 05/27/19. She has progressed through several lines of therapy and is currently on Lonsurf. 1. 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 Optic nerve appears unaffected on CT, however agree with ordering MRI for better characterization. This was not appreciated on previous CT Brain from 04/2019. Continue Dexamethasone, will initiate palliative radiotherapy early next week - does not appear to be emergent evidence of visual loss. This will hopefully help relieve mass effect. 2. Metastatic rectal cancer: Patient has progressed on several lines of therapy, currently on Lonsurf under the care of Dr. Noguera. Time with Patient: Greater than 30
[2020-03-11 12:16] VITALS: BP 128/85; RESP 16; TEMP 97.9
[2020-03-11 16:00] LABS: Anisocytosis Marked; Basophils % (A) 0 %; Eosinophils % (A) 0 %; HCT 32.6 % (34.0-46.0); Hypochromasia Marked; Lymphocytes # (A) 0.5 k/uL (1.0-4.8); Lymphocytes % (A) 12 %; MCHC 27.5 g/dL (31.0-37.0); MCV 90.8 fL (80.0-100.0); Macrocytosis Slight; Mean Platelet Volume 9.1; Monocytes # (A) 0.2 k/uL (0-1.0); Monocytes % (A) 4 %; Neutrophils # (A) 3.3 k/uL (1.3-7.7); Neutrophils % (A) 83 %; Platelet Count 366 k/uL (150-450); RBC 3.59 m/uL (3.80-5.40); RDW 24.2 % (11.5-15.5)
--- NOTE | 2020-03-11 17:00 | P.DS ---
Providers Date of admission: 03/10/20 11:48 Attending physician: Roxanna Rodriguez Consults: 03/10/20 11:48 Consult Physician Stat Consulting Provider: Ryan Bryson Consult Reason/Comments: Left eye mass, rectal cancer Do you want consulting provider notified?: Yes 03/10/20 15:40 Consult Physician Urgent Consulting Provider: Christopher Mckeon Consult Reason/Comments: Orbital lesion Do you want consulting provider notified?: Yes Primary care physician: Jamilah Barrera [facility] Course: 65-year-old female who has a history of rectal cancer with metastases and lung and liver who presents emergency department today complaining of waking up with nausea, general fatigue. She reports that she seemed of blood transfusion yesterday. Patient believes it was whole blood. Patient states that she also woke up this morning complaining of left eye swelling. She reports that she does not know if she got bit by something on her left eyelid or was hit in the eye on accident. She reports she did wake up with some minimal drainage. Patient's nausea vomiting resolved patient is single and swelling in the left eye patient had an orbital CT which showed metastatic lesion to the bone to the left superolateral orbital wall. There is minimal displacement of the left globe with some inflammation of the lateral rectus. Patient was started on Decadron oncology was consulted patient is admitted. Patient denied any double vision did have some blurry vision. 03/11/2020 Patient had near complete resolution of her left eye swelling. Patient is clinically doing well wanted to go home. Patient will be discharged on Decadron and Pepcid. Patient will get an MRI of the head as an outpatient. Patient will follow with radiation oncology for Radiation for metastatic disease PHYSICAL EXAMINATION: GENERAL: The patient is alert and oriented x3, not in any acute distress. Well developed, well nourished. HEENT: Pupils are round and equally reacting to light. EOMI. No scleral icterus. No conjunctival pallor. Normocephalic, atraumatic. No pharyngeal erythema. No thyromegaly. CARDIOVASCULAR: S1 and S2 present. No murmurs, rubs, or gallops. PULMONARY: Chest is clear to auscultation, no wheezing or crackles. ABDOMEN: Soft, nontender, nondistended, normoactive bowel sounds. No palpable organomegaly. MUSCULOSKELETAL: No joint swelling or deformity. EXTREMITIES: No cyanosis, clubbing, or pedal edema. NEUROLOGICAL: Gross neurological examination did not reveal any focal deficits. SKIN: No rashes. Assessment and Plan Plan: -Metastasis and inflammation to the left eye and left orbit: Left eye swelling completely resolved at this time -Nausea vomiting secondary to chemotherapy may have some gastritis as well. -Rectal cancer: Her resumption of oral chemotherapy as per oncology. -Hypertension -Hypovolemic hyponatremia hydro-chlorothiazide was discontinued and patient doesn't require this medication -Hypokalemia secondary to hydrochlorothiazide which was held potassium was supplemented Patient Condition at Discharge: Stable Plan - Discharge Summary Discharge Rx Participant: No New Discharge Prescriptions: New Dexamethasone [Decadron] 4 mg PO TID #42 tablet Famotidine [Pepcid] 20 mg PO BID #30 tablet Continue lisinopriL [Zestril] 20 mg PO DAILY HYDROcodone/APAP 10-325MG [[place] 10-325] 1 tab PO Q6H PRN PRN Reason: Pain Mupirocin [Mupirocin 2%] 1 applic TOPICAL BID Trifluridine/Tipiracil HCl [L[place]urf 20 mg-8.19 mg Tablet] See Taper PO DIRECTED Trifluridine/Tipiracil HCl [Lonsurf 15 mg-6.14 mg Tablet] See Taper PO DIRECTED fentaNYL [Duragesic 50MCG/HR] 50 mcg TOPICAL Q72H Sodium Chloride 5% Ophth Soln [[place] 128] 1 drop LEFT EYE QID Discontinued hydroCHLOROthiazide [Hydrodiuril] 12.5 mg PO DAILY Discharge Medication List lisinopriL [Zestril] 20 mg PO DAILY 02/24/19 [History] HYDROcodone/APAP 10-325MG [[place] 10-325] 1 tab PO Q6H PRN 04/14/19 [History] Mupirocin [Mupirocin 2%] 1 applic TOPICAL BID 03/10/20 [History] Sodium Chloride 5% Ophth Soln [Raad 128] 1 drop LEFT EYE QID 03/10/20 [History] Trifluridine/Tipiracil HCl [L[place]ur[place] 15 mg-6.14 mg Tablet] See Taper PO DIRECTED 03/10/20 [History] Trifluridine/Tipiracil HCl [L[place]urf 20 mg-8.19 mg Tablet] See Taper PO DIRECTED 03/10/20 [History] fentaNYL [Duragesic 50MCG/HR] 50 mcg TOPICAL Q72H 03/10/20 [History] Dexamethasone [Decadron] 4 mg PO TID #42 tablet 03/11/20 [Rx] Famotidine [Pepcid] 20 mg PO BID #30 tablet 03/11/20 [Rx] Follow up Appointment(s)/Referral(s): Ryan Bryson MD [STAFF PHYSICIAN] - 1 Week Sharon Askew MD [Primary Care Provider] - 3 Days Christopher Mckeon MD [STAFF PHYSICIAN] - 1 Week Discharge Disposition: HOME SELF-CARE
== END 2020-03-11 17:48 | disposition home or self-care (01) | DRG 543 ==
LOC: EC 07:16 → 6NMEDSUR 11:48
PROVIDERS: ADMIT Internal Medicine; ATTEND Internal Medicine
DX: C79.51 Secondary malignant neoplasm of bone (principal); C78.7 Secondary malignant neoplasm of liver and intrahepatic bile duct; C78.00 Secondary malignant neoplasm of unspecified lung; C20 Malignant neoplasm of rectum; E87.1 Hypo-osmolality and hyponatremia; C79.00 Secondary malignant neoplasm of unspecified kidney and renal pelvis; E86.1 Hypovolemia; E87.6 Hypokalemia; F40.240 Claustrophobia; I10 Essential (primary) hypertension; T45.1X5A Adverse effect of antineoplastic and immunosuppressive drugs, initial encounter; T50.2X5A Adverse effect of carbonic-anhydrase inhibitors, benzothiadiazides and other diuretics, initial encounter; G89.29 Other chronic pain; H26.9 Unspecified cataract; M15.9 Polyosteoarthritis, unspecified; R32 Unspecified urinary incontinence; K29.70 Gastritis, unspecified, without bleeding; R11.2 Nausea with vomiting, unspecified; H91.90 Unspecified hearing loss, unspecified ear; Z92.3 Personal history of irradiation; Z87.891 Personal history of nicotine dependence; Z79.899 Other long term (current) drug therapy; Z79.891 Long term (current) use of opiate analgesic; Z88.5 Allergy status to narcotic agent; Z88.8 Allergy status to other drugs, medicaments and biological substances; Z87.19 Personal history of other diseases of the digestive system; Z91.030 Bee allergy status; Z90.49 Acquired absence of other specified parts of digestive tract; Z98.51 Tubal ligation status; Z98.890 Other specified postprocedural states; Z82.49 Family history of ischemic heart disease and other diseases of the circulatory system; Z80.49 Family history of malignant neoplasm of other genital organs
CPT/HCPCS: 36415; 36430; 70460; 70481; 80048; 80053; 81003; 82378; 83735; 85025; 85610; 85730; 86850; 86900; 86901; 86920; 96365; 96375; 99285

== ENCOUNTER 2020-03-23 09:04 | Inpatient (IN) | payer MEDICARE, OTHER ==
[2020-03-23] MEDS ORDERED: HYDROmorphone 0.5 MG/0.5 ML SYRINGE IVP STA ×3 (09:24→13:16)
[2020-03-23] MEDS ORDERED: ONDANSETRON 4 MG/2 ML VIAL IVP STA (09:24)
[2020-03-23] MEDS ORDERED: SODIUM CHLORIDE 0.9% 500 ML 500 ML IV STA (09:24)
--- NOTE | 2020-03-23 09:39 | ED ---
Back Pain HPI - General Chief Complaint: Back Pain/Injury Stated Complaint: Back Pain, Weakness Time Seen by Provider: 03/23/20 09:15 Source: patient, RN notes reviewed Limitations: no limitations - History of Present Illness Initial Comments: This is a 65-year-old female presents emergency Department chief complaint of back pain, joint pain. Patient states that she has metastatic colon cancer with metastases to bone. Patient states that she's had prior metastases to her spine in which she's had procedures for. Patient states that she has a fentanyl patch and takes [place]. Patient states is not helping her pain. She states that she cannot tolerate the pain anymore. Patient states that she denies any new falls. Patient that she just generalized feels weak. Patient was recently admitted secondary to new metastasis to left periorbital region. She states the swelling is going down she is currently on Decadron. She has no complaints of shortness of breath. Patient states that she has no complaints of abdominal pain no dysuria no hematuria no change in bowel habits. Patient states that she currently sees Dr. Santiago, Dr. Noguera, Dr. Mckeon. Patient states her current pain assessment 10. Denies any sick contacts no fevers. - Related Data Home Medications Medication Instructions Recorded Confirmed lisinopriL [Zestril] 20 mg PO DAILY 02/24/19 03/10/20 HYDROcodone/APAP 10-325MG [[place] 1 tab PO Q6H PRN 04/14/19 03/10/20 10-325] Mupirocin [Mupirocin 2%] 1 applic TOPICAL BID 03/10/20 03/10/20 Sodium Chloride 5% Ophth Soln 1 drop LEFT EYE QID 03/10/20 03/10/20 [Raad 128] Trifluridine/Tipiracil HCl See Taper PO DIRECTED 03/10/20 03/10/20 [Lonsurf 15 mg-6.14 mg Tablet] Trifluridine/Tipiracil HCl See Taper PO DIRECTED 03/10/20 03/10/20 [Lonsurf 20 mg-8.19 mg Tablet] fentaNYL [Duragesic 50MCG/HR] 50 mcg TOPICAL Q72H 03/10/20 03/10/20 Previous Rx's Medication Instructions Recorded Dexamethasone [Decadron] 4 mg PO TID #42 tablet 03/11/20 Famotidine [Pepcid] 20 mg PO BID #30 tablet 03/11/20 Allergies Allergy/AdvReac Type Severity Reaction Status Date / Time bee venom protein (honey bee) Allergy Anaphylaxis Verified 03/23/20 09:18 capecitabine [From Xeloda] Allergy Unknown Verified 03/23/20 09:18 morphine AdvReac Confusion Verified 03/23/20 09:18 Review of Systems ROS Statement: Those systems with pertinent positive or pertinent negative responses have been documented in the HPI. ROS Other: All systems not noted in ROS Statement are negative. Past Medical History Past Medical History: Cancer, Eye Disorder, Hypertension, Osteoarthritis (OA) Additional Past Medical History / Comment(s): Rectal cancer with metastasis to lung/liver/kidney and back-pt states treatments got rid of back mets, she has gone thru chemo both IV/oral and last oral chemo was 3 weeks ago, she has also had radiation treatments, anemia with transfusion 03/09/20, chronic pain from arthritis in multiple joints, start of bilateral cataracts, occasionally incontinent of urine. History of Any Multi-Drug Resistant Organisms: None Reported Past Surgical History: Section, Cholecystectomy, Heart Catheterization, Tubal Ligation Additional Past Surgical History / Comment(s): Colonoscopy, port-pt states is nonfunctioning. Past Anesthesia/Blood Transfusion Reactions: Postoperative Nausea & Vomiting (PONV) Additional Past Anesthesia/Blood Transfusion Reaction / Comment(s): Pt states she received her first blood transfusion on 03/09/20 without reaction. She has clausterphobia. Past Psychological History: No Psychological Hx Reported Smoking Status: Former smoker - Past Family History Mother Family Medical History: Cancer Additional Family Medical History / Comment(s): Mother had uterine cancer. Father Family Medical History: Cancer Additional Family Medical History / Comment(s): Father had penile cancer. Sister(s) Family Medical History: Vascular Disorder Additional Family Medical History / Comment(s): Sister had a aneurysm General Exam Limitations: no limitations General appearance: alert, in no apparent distress Head exam: Present: atraumatic, normocephalic, normal inspection Eye exam: Present: normal appearance, PERRL, EOMI. Absent: scleral icterus, conjunctival injection, periorbital swelling ENT exam: Present: normal exam, normal oropharynx, mucous membranes moist Neck exam: Present: normal inspection, full ROM. Absent: tenderness, meningismus, lymphadenopathy Respiratory exam: Present: normal lung sounds bilaterally, decreased breath sounds. Absent: respiratory distress, wheezes, rales, rhonchi, stridor Cardiovascular Exam: Present: normal rhythm, tachycardia, normal heart sounds. Absent: systolic murmur, diastolic murmur, rubs, gallop, clicks GI/Abdominal exam: Present: soft, normal bowel sounds. Absent: distended, tenderness, guarding, rebound, rigid Extremities exam: Present: other (Patient has pain with range of motion of her lower extremities no associated weakness, pulses equal bilaterally) Back exam: Present: tenderness, paraspinal tenderness, vertebral tenderness (Lower thoracic and lumbar). Absent: full ROM (Decreased range of motion, diffuse pain) Neurological exam: Present: alert, oriented X3, CN II-XII intact, other. Absent: motor sensory deficit Skin exam: Present: warm, dry, intact, normal color. Absent: rash Course Vital Signs 03/23/20 03/23/20 03/23/20 09:11 11:00 13:38 Temperature 99.1 F Pulse Rate 107 H 117 H 108 H Respiratory 18 18 18 Rate Blood Pressure 119/99 102/91 109/91 O2 Sat by Pulse 96 93 L 95 Oximetry Medical Decision Making - Medical Decision Making 65-year-old female presented for low back pain and back pain. Patient's had worsening pain. Patient x-ray shows worsening compression fractures which she knew about. Patient has no red flag symptoms. Patient states she cannot tolerate the pain just at multiple rounds of IV pain meds with minimal relief. Patient will be admitted for pain control, oncology - Lab Data Result diagrams: 03/23/20 09:28 03/23/20 09:28 Lab Results 03/23/20 03/23/20 03/23/20 Range/Units 09:28 09:28 09:28 WBC 18.8 H (3.8-10.6) k/uL RBC 4.37 (3.80-5.40) m/uL Hgb 12.3 D (11.4-16.0) gm/dL Hct 40.4 (34.0-46.0) % MCV 92.6 (80.0-100.0) fL MCH 28.1 (25.0-35.0) pg MCHC 30.4 L (31.0-37.0) g/dL RDW 24.1 H (11.5-15.5) % Plt Count 328 (150-450) k/uL Neutrophils % 92 % Lymphocytes % 2 % Monocytes % 5 % Eosinophils % 1 % Basophils % 0 % Neutrophils # 17.3 H (1.3-7.7) k/uL Lymphocytes # 0.4 L (1.0-4.8) k/uL Monocytes # 0.8 (0-1.0) k/uL Eosinophils # 0.1 (0-0.7) k/uL Basophils # 0.0 (0-0.2) k/uL Hypochromasia Marked Anisocytosis Marked Microcytosis Slight Macrocytosis Slight PT 10.6 (9.0-12.0) sec INR 1.0 (<1.2) APTT 22.0 (22.0-30.0) sec Sodium (137-145) mmol/L Potassium (3.5-5.1) mmol/L Chloride (98-107) mmol/L Carbon Dioxide (22-30) mmol/L Anion Gap mmol/L BUN (7-17) mg/dL Creatinine (0.52-1.04) mg/dL Est GFR (CKD-EPI)AfAm (>60 ml/min/1.73 sqM) Est GFR (CKD-EPI)NonAf (>60 ml/min/1.73 sqM) Glucose (74-99) mg/dL Lactic Ac Sepsis Rflx Plasma Lactic Acid [place] (0.7-2.0) mmol/L Calcium (8.4-10.2) mg/dL Magnesium (1.6-2.3) mg/dL Total Bilirubin (0.2-1.3) mg/dL AST (14-36) U/L ALT (4-34) U/L Alkaline Phosphatase (38-126) U/L Creatine Kinase (30-135) U/L Troponin I (0.000-0.034) ng/mL Total Protein (6.3-8.2) g/dL Albumin (3.5-5.0) g/dL Urine Color Dark Yellow Urine Appearance Cloudy H (Clear) Urine pH 6.0 (5.0-8.0) Ur Specific [place] 1.031 (1.001-1.035) Urine Protein 1+ H (Negative) Urine Glucose (UA) Negative (Negative) Urine Ketones Negative (Negative) Urine Blood Negative (Negative) Urine Nitrite Negative (Negative) Urine Bilirubin 1+ H (Negative) Urine Urobilinogen >12.0 (<2.0) mg/dL Ur Leukocyte Esterase Moderate H (Negative) Urine RBC 3 (0-5) /hpf Urine WBC 11 H (0-5) /hpf Ur Squamous Epith Cells <1 (0-4) /hpf Urine Bacteria Rare H (None) /hpf Hyaline Casts 3 H (0-2) /lpf Urine Mucus Many H (None) /hpf 03/23/20 03/23/20 03/23/20 Range/Units 09:28 09:28 09:28 WBC (3.8-10.6) k/uL RBC (3.80-5.40) m/uL Hgb (11.4-16.0) gm/dL Hct (34.0-46.0) % MCV (80.0-100.0) fL MCH (25.0-35.0) pg MCHC (31.0-37.0) g/dL RDW (11.5-15.5) % Plt Count (150-450) k/uL Neutrophils % % Lymphocytes % % Monocytes % % Eosinophils % % Basophils % % Neutrophils # (1.3-7.7) k/uL Lymphocytes # (1.0-4.8) k/uL Monocytes # (0-1.0) k/uL Eosinophils # (0-0.7) k/uL Basophils # (0-0.2) k/uL Hypochromasia Anisocytosis Microcytosis Macrocytosis PT (9.0-12.0) sec INR (<1.2) APTT (22.0-30.0) sec Sodium 135 L (137-145) mmol/L Potassium 3.6 (3.5-5.1) mmol/L Chloride 99 (98-107) mmol/L Carbon Dioxide 32 H (22-30) mmol/L Anion Gap 4 mmol/L BUN 17 (7-17) mg/dL Creatinine 0.46 L (0.52-1.04) mg/dL Est GFR (CKD-EPI)AfAm >90 (>60 ml/min/1.73 sqM) Est GFR (CKD-EPI)NonAf >90 (>60 ml/min/1.73 sqM) Glucose 96 (74-99) mg/dL Lactic Ac Sepsis Rflx Plasma Lactic Acid [place] 2.5 H* (0.7-2.0) mmol/L Calcium 8.3 L (8.4-10.2) mg/dL Magnesium 2.1 (1.6-2.3) mg/dL Total Bilirubin 1.2 (0.2-1.3) mg/dL AST 65 H (14-36) U/L ALT 40 H (4-34) U/L Alkaline Phosphatase 264 H (38-126) U/L Creatine Kinase 40 (30-135) U/L Troponin I <0.012 (0.000-0.034) ng/mL Total Protein 5.7 L (6.3-8.2) g/dL Albumin 2.9 L (3.5-5.0) g/dL Urine Color Urine Appearance (Clear) Urine pH (5.0-8.0) Ur Specific [place] (1.001-1.035) Urine Protein (Negative) Urine Glucose (UA) (Negative) Urine Ketones (Negative) Urine Blood (Negative) Urine Nitrite (Negative) Urine Bilirubin (Negative) Urine Urobilinogen (<2.0) mg/dL Ur Leukocyte Esterase (Negative) Urine RBC (0-5) /hpf Urine WBC (0-5) /hpf Ur Squamous Epith Cells (0-4) /hpf Urine Bacteria (None) /hpf Hyaline Casts (0-2) /lpf Urine Mucus (None) /hpf 03/23/20 03/23/20 Range/Units 09:52 12:30 WBC (3.8-10.6) k/uL RBC (3.80-5.40) m/uL Hgb (11.4-16.0) gm/dL Hct (34.0-46.0) % MCV (80.0-100.0) fL MCH (25.0-35.0) pg MCHC (31.0-37.0) g/dL RDW (11.5-15.5) % Plt Count (150-450) k/uL Neutrophils % % Lymphocytes % % Monocytes % % Eosinophils % % Basophils % % Neutrophils # (1.3-7.7) k/uL Lymphocytes # (1.0-4.8) k/uL Monocytes # (0-1.0) k/uL Eosinophils # (0-0.7) k/uL Basophils # (0-0.2) k/uL Hypochromasia Anisocytosis Microcytosis Macrocytosis PT (9.0-12.0) sec INR (<1.2) APTT (22.0-30.0) sec Sodium (137-145) mmol/L Potassium (3.5-5.1) mmol/L Chloride (98-107) mmol/L Carbon Dioxide (22-30) mmol/L Anion Gap mmol/L BUN (7-17) mg/dL Creatinine (0.52-1.04) mg/dL Est GFR (CKD-EPI)AfAm (>60 ml/min/1.73 sqM) Est GFR (CKD-EPI)NonAf (>60 ml/min/1.73 sqM) Glucose (74-99) mg/dL Lactic Ac Sepsis Rflx Y Plasma Lactic Acid [place] 2.3 H* (0.7-2.0) mmol/L Calcium (8.4-10.2) mg/dL Magnesium (1.6-2.3) mg/dL Total Bilirubin (0.2-1.3) mg/dL AST (14-36) U/L ALT (4-34) U/L Alkaline Phosphatase (38-126) U/L Creatine Kinase (30-135) U/L Troponin I (0.000-0.034) ng/mL Total Protein (6.3-8.2) g/dL Albumin (3.5-5.0) g/dL Urine Color Urine Appearance (Clear) Urine pH (5.0-8.0) Ur Specific [place] (1.001-1.035) Urine Protein (Negative) Urine Glucose (UA) (Negative) Urine Ketones (Negative) Urine Blood (Negative) Urine Nitrite (Negative) Urine Bilirubin (Negative) Urine Urobilinogen (<2.0) mg/dL Ur Leukocyte Esterase (Negative) Urine RBC (0-5) /hpf Urine WBC (0-5) /hpf Ur Squamous Epith Cells (0-4) /hpf Urine Bacteria (None) /hpf Hyaline Casts (0-2) /lpf Urine Mucus (None) /hpf Disposition Clinical Impression: Intractable pain, Compression fracture of L3 vertebra, Metastasis from rectal cancer Disposition: ADMITTED IP TO THIS HOSP Condition: Serious Referrals: Sharon Askew MD [Primary Care Provider] - 1-2 days
[2020-03-23 09:48] LABS: Anisocytosis Marked; Basophils % (A) 0 %; Eosinophils # (A) 0.1 k/uL (0-0.7); Eosinophils % (A) 1 %; HCT 40.4 % (34.0-46.0); Hypochromasia Marked; Lymphocytes # (A) 0.4 k/uL (1.0-4.8); Lymphocytes % (A) 2 %; MCH 28.1 pg (25.0-35.0); MCHC 30.4 g/dL (31.0-37.0); MCV 92.6 fL (80.0-100.0); Macrocytosis Slight; Mean Platelet Volume 6.8; Microcytosis Slight; Monocytes # (A) 0.8 k/uL (0-1.0); Monocytes % (A) 5 %; Neutrophils # (A) 17.3 k/uL (1.3-7.7); Neutrophils % (A) 92 %; Platelet Count 328 k/uL (150-450); RBC 4.37 m/uL (3.80-5.40); RDW 24.1 % (11.5-15.5); WBC 18.8 k/uL (3.8-10.6)
[2020-03-23 09:49] LABS: HGB 12.3 gm/dL (11.4-16.0)
[2020-03-23 09:53] LABS: ALT 40 U/L (4-34); AST 65 U/L (14-36); African American GFR (CKD) >90 (>60 ml/min/1.73 sqM); Albumin 2.9 g/dL (3.5-5.0); Alkaline Phosphatase 264 U/L (38-126); Anion Gap 4 mmol/L; Blood Urea Nitrogen 17 mg/dL (7-17); Calcium 8.3 mg/dL (8.4-10.2); Carbon Dioxide 32 mmol/L (22-30); Chloride 99 mmol/L (98-107); Creatine Kinase 40 U/L (30-135); Glucose 96 mg/dL (74-99); Magnesium 2.1 mg/dL (1.6-2.3); Non-African American GFR(CKD) >90 (>60 ml/min/1.73 sqM); Potassium 3.6 mmol/L (3.5-5.1); Sodium 135 mmol/L (137-145); Total Bilirubin 1.2 mg/dL (0.2-1.3); Total Protein 5.7 g/dL (6.3-8.2)
[2020-03-23 09:56] LABS: Prothrombin Time 10.6 sec (9.0-12.0)
[2020-03-23] MEDS ORDERED: SODIUM CHLORIDE 5% OPHTH DROPS 15 ML BTL BOTH EYES STA (10:24)
--- NOTE | 2020-03-23 10:54 | XR ---
EXAMINATION TYPE: XR lumbar spine 2 or 3V DATE OF EXAM: 03/23/2020 CLINICAL HISTORY: Low back pain. TECHNIQUE: Frontal and lateral images of the lumbar spine are obtained. COMPARISON: CT May 28, 2017. X-ray lumbar spine February 25, 2019 FINDINGS: There are 5 lumbar type vertebral bodies redemonstrated with a sacralized L5 segment. Pers istent dextroconvex scoliotic curvature centered lumbosacral junction. Persistent sclerosis and chron ic compression type fracture L3 level with moderate more height loss noted from prior studies. Balance Bridge Inspector ior retropulsion is redemonstrated not significantly progressed from most recent x-ray. Osseous struc tures are demineralized with mild height loss superior L2 endplate redemonstrated. Minimal height los s with new sclerosis superior L1 endplate. Stable mild height loss superior L4 endplate. Severe space narrowing L5-S1 level redemonstrated. Cholecystectomy clips noted. IMPRESSION: As above.
--- NOTE | 2020-03-23 10:57 | XR ---
EXAMINATION TYPE: XR thoracic spine 2V DATE OF EXAM: 03/23/2020 CLINICAL HISTORY: Mid back pain. History of rectal cancer. TECHNIQUE: Frontal, lateral, and swimmer's view of thoracic spine are obtained. COMPARISON: Thoracic spine x-ray February 25, 2019. CT December 29, 2019 FINDINGS: Osseous structures are demineralized which is noted to lower radiographic sensitivity. Ex aggerated thoracic kyphosis is redemonstrated on lateral view. Better seen on CT but redemonstrated o n x-ray is mild to moderate compression type fracture deformity at the T8 pathologic fracture. Alignm ent stable. Multiple pulmonary metastatic lesions noted scattered throughout the visualized lung pare nchyma bilaterally. Persistent right subclavian Mediport catheter. Cholecystectomy clips redemonstrat ed. IMPRESSION: As above.
[2020-03-23 13:28] LABS: Appearance,Urine Cloudy (Clear); Bacteria,Urine Rare /hpf; Bilirubin,Urine 1+ (Negative); Blood,Urine Negative (Negative); Color,Urine Dark Yellow; Glucose,Urine (UA) Negative (Negative); Hyaline Casts,Urine 3 /lpf (0-2); Ketones,Urine Negative (Negative); Leukocyte Esterase,Urine Moderate (Negative); Mucus,Urine Many /hpf; Nitrite,Urine Negative (Negative); Protein,Urine 1+ (Negative); RBC,Urine 3 /hpf (0-5); Specific Gravity,Urine 1.031 (1.001-1.035); Squamous Epithelial Cell,Urine <1 /hpf (0-4); Urobilinogen,Urine >12.0 mg/dL (<2.0); WBC,Urine 11 /hpf (0-5)
[2020-03-23] MEDS ORDERED: HYDROmorphone 1 MG/ML 1 ML SYRINGE IVP PRN (13:56)
[2020-03-23] MEDS ORDERED: HYDROmorphone 0.5 MG/0.5 ML SYRINGE IVP PRN (13:56)
[2020-03-23] MEDS ORDERED: NALOXONE 0.4 MG/ML 1 ML VIAL IV PRN (13:56)
[2020-03-23] MEDS ORDERED: ONDANSETRON 4 MG/2 ML VIAL IVP PRN (13:56)
[2020-03-23] MEDS ORDERED: KETOROLAC 15 MG/ML 1 ML VIAL IVP PRN (14:31)
[2020-03-23] MEDS ORDERED: DEXAMETHASONE SOD PHOSPHATE 4 MG/ML 1 ML VIAL IV SCH (14:45)
[2020-03-23] MEDS ORDERED: SENNOSIDES 8.6 MG TAB PO PRN (14:58)
[2020-03-23] MEDS ORDERED: polyethylene glycoL 3350 17 GM POWD.PACK PO PRN (14:58)
--- NOTE | 2020-03-23 15:02 | P.HPIM ---
History of Present Illness 65-year-old female presents emergency Department chief complaint of back pain, joint pain. Patient states that she has metastatic colon cancer with metastases to bone. Patient states that she's had prior metastases to her spine was also recently admitted for the metastasis to the right orbital bone for which patient is presently receiving radiation therapy.. Patient states that she has a fentanyl patch and takes [place]. Patient states is not helping her pain. She states that she cannot tolerate the pain anymore. Patient states that she denies any new falls. Patient that she just generalized feels weak. she is currently on Decadron. She has no complaints of shortness of breath. Patient is found to have compression fractures which appears to be old on the lumbar x- rays. There is no evidence of metastatic disease on x-rays.. Patient does have radicular pain to both legs but denied any new weakness patient does have generalized weakness in both legs from lack of ambulation because of her cancer. Patient did not tolerate conventional chemotherapy because of which patient is oral chemotherapy at this time. Patient states that she has no complaints of abdominal pain no dysuria no hematuria no change in bowel habits. Patient's pain in the back is sharp and goes across the back. Review of Systems REVIEW OF SYSTEMS: CONSTITUTIONAL: No fever, no malaise, no fatigue. HEENT: No recent visual problems or hearing problems. Denied any sore throat. CARDIOVASCULAR: No chest pain, orthopnea, PND, no palpitations, no syncope. PULMONARY: No shortness of breath, no cough, no hemoptysis. GASTROINTESTINAL: No diarrhea, no nausea, no vomiting, no abdominal pain. NEUROLOGICAL: No headaches, no weakness, no numbness. HEMATOLOGICAL: Denies any bleeding or petechiae. GENITOURINARY: Denies any burning micturition, frequency, or urgency. MUSCULOSKELETAL/RHEUMATOLOGICAL: As mentioned in HPI ENDOCRINE: Denies any polyuria or polydipsia. The rest of the 14-point review of systems is negative. Past Medical History Past Medical History: Cancer, Eye Disorder, Hypertension, Osteoarthritis (OA) Additional Past Medical History / Comment(s): Rectal cancer with metastasis to lung/liver/kidney and back-pt states treatments got rid of back mets, she has gone thru chemo both IV/oral and last oral chemo was 3 weeks ago, she has also had radiation treatments, anemia with transfusion 03/09/20, chronic pain from arthritis in multiple joints, start of bilateral cataracts, occasionally incontinent of urine. History of Any Multi-Drug Resistant Organisms: None Reported Past Surgical History: Section, Cholecystectomy, Heart Catheterization, Tubal Ligation Additional Past Surgical History / Comment(s): Colonoscopy, port-pt states is n onfunctioning. Past Anesthesia/Blood Transfusion Reactions: Postoperative Nausea & Vomiting (PONV) Additional Past Anesthesia/Blood Transfusion Reaction / Comment(s): Pt states she received her first blood transfusion on 03/09/20 without reaction. She has clausterphobia. Past Psychological History: No Psychological Hx Reported Smoking Status: Former smoker - Past Family History Mother Family Medical History: Cancer Additional Family Medical History / Comment(s): Mother had uterine cancer. Father Family Medical History: Cancer Additional Family Medical History / Comment(s): Father had penile cancer. Sister(s) Family Medical History: Vascular Disorder Additional Family Medical History / Comment(s): Sister had a aneurysm Medications and Allergies Home Medications Medication Instructions Recorded Confirmed Type lisinopriL [Zestril] 20 mg PO DAILY 02/24/19 03/23/20 History HYDROcodone/APAP 10-325MG [[place] 1 tab PO Q6H PRN 04/14/19 03/23/20 History 10-325] Mupirocin [Mupirocin 2%] 1 applic TOPICAL BID 03/10/20 03/23/20 History Sodium Chloride 5% Ophth Soln 1 drop LEFT EYE QID 03/10/20 03/23/20 History [Raad 128] Trifluridine/Tipiracil HCl See Taper PO DIRECTED 03/10/20 03/23/20 History [Lonsurf 15 mg-6.14 mg Tablet] Trifluridine/Tipiracil HCl See Taper PO DIRECTED 03/10/20 03/23/20 History [Lonsurf 20 mg-8.19 mg Tablet] fentaNYL [Duragesic 50MCG/HR] 50 mcg TOPICAL Q72H 03/10/20 03/23/20 History Allergies Allergy/AdvReac Type Severity Reaction Status Date / Time bee venom protein (honey bee) Allergy Anaphylaxis Verified 03/23/20 13:58 capecitabine [From Xeloda] Allergy Unknown Verified 03/23/20 13:58 morphine AdvReac Confusion Verified 03/23/20 13:58 Physical Exam Vitals: Vital Signs Temp Pulse Resp BP Pulse Ox 03/23/20 13:38 108 H 18 109/91 95 03/23/20 11:00 117 H 18 102/91 93 L 03/23/20 09:11 99.1 F 107 H 18 119/99 96 Intake and Output 03/22/20 03/23/20 03/23/20 22:59 06:59 14:59 Other: Weight 56.245 kg PHYSICAL EXAMINATION: GENERAL: The patient is alert and oriented x3, not in any acute distress. Thin built HEENT: Pupils are round and equally reacting to light. EOMI. No scleral icterus. No conjunctival pallor. Normocephalic, atraumatic. No pharyngeal erythema. No thyromegaly. CARDIOVASCULAR: S1 and S2 present. No murmurs, rubs, or gallops. PULMONARY: Chest is clear to auscultation, no wheezing or crackles. ABDOMEN: Soft, nontender, nondistended, normoactive bowel sounds. No palpable organomegaly. MUSCULOSKELETAL: No joint swelling or deformity. EXTREMITIES: No cyanosis, clubbing, or pedal edema. NEUROLOGICAL: Gross neurological examination did not reveal any focal deficits. Generalized weakness with some weakness in both legs which is not new and does have some muscle atrophy SKIN: No rashes. Results CBC & Chem 7: 03/23/20 09:28 03/23/20 09:28 Labs: Abnormal Lab Results - Last 24 Hours (Table) 03/23/20 03/23/20 03/23/20 Range/Units 09:28 09:28 09:28 WBC 18.8 H (3.8-10.6) k/uL MCHC 30.4 L (31.0-37.0) g/dL RDW 24.1 H (11.5-15.5) % Neutrophils # 17.3 H (1.3-7.7) k/uL Lymphocytes # 0.4 L (1.0-4.8) k/uL Sodium 135 L (137-145) mmol/L Carbon Dioxide 32 H (22-30) mmol/L Creatinine 0.46 L (0.52-1.04) mg/dL Plasma Lactic Acid Blaise (0.7-2.0) mmol/L Calcium 8.3 L (8.4-10.2) mg/dL AST 65 H (14-36) U/L ALT 40 H (4-34) U/L Alkaline Phosphatase 264 H (38-126) U/L Total Protein 5.7 L (6.3-8.2) g/dL Albumin 2.9 L (3.5-5.0) g/dL Urine Appearance Cloudy H (Clear) Urine Protein 1+ H (Negative) Urine Bilirubin 1+ H (Negative) Ur Leukocyte Esterase Moderate H (Negative) Urine WBC 11 H (0-5) /hpf Urine Bacteria Rare H (None) /hpf Hyaline Casts 3 H (0-2) /lpf Urine Mucus Many H (None) /hpf 03/23/20 03/23/20 Range/Units 09:28 12:30 WBC (3.8-10.6) k/uL MCHC (31.0-37.0) g/dL RDW (11.5-15.5) % Neutrophils # (1.3-7.7) k/uL Lymphocytes # (1.0-4.8) k/uL Sodium (137-145) mmol/L Carbon Dioxide (22-30) mmol/L Creatinine (0.52-1.04) mg/dL Plasma Lactic Acid Blaise 2.5 H* 2.3 H* (0.7-2.0) mmol/L Calcium (8.4-10.2) mg/dL AST (14-36) U/L ALT (4-34) U/L Alkaline Phosphatase (38-126) U/L Total Protein (6.3-8.2) g/dL Albumin (3.5-5.0) g/dL Urine Appearance (Clear) Urine Protein (Negative) Urine Bilirubin (Negative) Ur Leukocyte Esterase (Negative) Urine WBC (0-5) /hpf Urine Bacteria (None) /hpf Hyaline Casts (0-2) /lpf Urine Mucus (None) /hpf Assessment and Plan Plan: -Back pain: Patient does have chronic back pain he can be worsening of her degenerative disc disease patient does have a compression fracture in the past and there can be metastatic disease to the back as well. Dr. Navarro's consulted along with the oncology. Radiation oncology will be consulted as well. Patient is on Decadron which will be continued patient was started on Toradol along with other pain medication she is already receiving including Dilaudid and fentanyl patch along with Randolph. Patient will be started on bowel regimen as well -Colon cancer metastatic, all the chemotherapy is on hold at this time because of non-tolerance and has metastases to the liver metastases to the right. Apical area and multiple other metastasis -Hypertension -Leukocytosis secondary to the systemic steroids she is receiving GI prophylaxis with Protonix due to prophylaxis with Lovenox
[2020-03-23] MEDS: HYDROcodone/APAP 10-325MG 1 EACH TAB PO PRN (15:09)
[2020-03-23] MEDS: PANTOPRAZOLE 40 MG/10 ML VIAL IVP SCH (20:32)
[2020-03-23] MEDS: dexAMETHasone 4 MG TAB PO SCH (20:32)
[2020-03-23] MEDS: SODIUM CHLORIDE 5% OPHTH DROPS 15 ML BTL LEFT EYE SCH ×2 (20:42→22:44)
[2020-03-23] MEDS: MUPIROCIN 2% OINT 22 GM TUBE TOPICAL SCH (20:42)
[2020-03-23] MEDS ORDERED: FAMOTIDINE 20 MG TAB PO SCH (21:00)
[2020-03-24] MEDS: HYDROcodone/APAP 10-325MG 1 EACH TAB PO PRN ×2 (05:07→12:02)
--- NOTE | 2020-03-24 07:43 | P.CNOR ---
History of Present Illness - [facility] Consult date: 03/24/20 Consult reason: low back pain History of present illness: Patient is a pleasant 65-year-old female who presented because she was unable to get around and having severe pain in her back and leg. She says that this morning her pain is significantly improved. She says the pain medicine helps her significantly and she is not having back pain at this point. She says she has a long history of back pain and it had gotten so severe that she was unable to get around. She denies any fevers chills. She denies any lower extremity weakness. She denies any numbness tingling. She denies any changes in bowel bladder function. She does have history of metastatic colon cancer she denies any upper back pain this morning. Review of Systems As stated per HPI. Denies any fevers chills or change in bowel bladder function. Denies any weakness in lower extremity is. She feels her pain is significant improved today at her lower back. Denies any upper back pain. Past Medical History Past Medical History: Cancer, Eye Disorder, Hypertension, Osteoarthritis (OA) Additional Past Medical History / Comment(s): Pt recently admitted to [facility] on 03/10/20 with metastasis cancer and inflammation L eye/orbit. She states since then she has had a couple radiation treatments to L eye area. Other hx: Rectal cancer with metastasis to lung/liver/kidney and back-pt states treatments got rid of back mets, she has gone thru chemo both IV/oral and last oral chemo was 3 weeks ago, she has also had radiation treatments, anemia with transfusion 03/09/20, chronic pain from arthritis in multiple joints, start of bilateral cataracts, occasionally incontinent of urine. History of Any Multi-Drug Resistant Organisms: None Reported Past Surgical History: Section, Cholecystectomy, Heart Catheterization, Tubal Ligation Additional Past Surgical History / Comment(s): Colonoscopy, port-pt states is nonfunctioning. Past Anesthesia/Blood Transfusion Reactions: Postoperative Nausea & Vomiting (PONV) Additional Past Anesthesia/Blood Transfusion Reaction / Comm: Pt states she received her first blood transfusion on 03/09/20 without reaction. She has clausterphobia. Smoking Status: Former smoker - Past Family History Mother Family Medical History: Cancer Additional Family Medical History / Comment(s): Mother had uterine cancer. Father Family Medical History: Cancer Additional Family Medical History / Comment(s): Father had penile cancer. Sister(s) Family Medical History: Vascular Disorder Additional Family Medical History / Comment(s): Sister had a aneurysm Medications and Allergies Home Medications Medication Instructions Recorded Confirmed Type lisinopriL [Zestril] 20 mg PO DAILY 02/24/19 03/23/20 History HYDROcodone/APAP 10-325MG [[place] 1 tab PO Q6H PRN 04/14/19 03/23/20 History 10-325] Mupirocin [Mupirocin 2%] 1 applic TOPICAL BID 03/10/20 03/23/20 History Sodium Chloride 5% Ophth Soln 1 drop LEFT EYE QID 03/10/20 03/23/20 History [Raad 128] Trifluridine/Tipiracil HCl See Taper PO DIRECTED 03/10/20 03/23/20 History [Lonsurf 15 mg-6.14 mg Tablet] Trifluridine/Tipiracil HCl See Taper PO DIRECTED 03/10/20 03/23/20 History [Lonsurf 20 mg-8.19 mg Tablet] fentaNYL [Duragesic 50MCG/HR] 50 mcg TOPICAL Q72H 03/10/20 03/23/20 History Allergies Allergy/AdvReac Type Severity Reaction Status Date / Time bee venom protein (honey bee) Allergy Anaphylaxis Verified 03/23/20 13:58 capecitabine [From Xeloda] Allergy Unknown Verified 03/23/20 13:58 morphine AdvReac Confusion Verified 03/23/20 13:58 Physical Examination Osteopathic Statement: *. No significant issues noted on an osteopathic structural exam other than those noted in the History and Physical/Consult. - L Spine: dermatomal strength & reflexes bilateral Strength: hip flexion: 5/5 (She moves well and that is able to sit up easily. She has 5 out of 5 strength bilateral lower extremities with hip flexion and extension dorsal dorsiflexion plantar flexion and EHL. Thighs and calves are soft nontender no hip pain) Results - Labs Labs: Abnormal Lab Results - Last 24 Hours (Table) 03/23/20 03/23/20 03/23/20 Range/Units 09:28 09:28 09:28 WBC 18.8 H (3.8-10.6) k/uL MCHC 30.4 L (31.0-37.0) g/dL RDW 24.1 H (11.5-15.5) % Neutrophils # 17.3 H (1.3-7.7) k/uL Lymphocytes # 0.4 L (1.0-4.8) k/uL Sodium 135 L (137-145) mmol/L Carbon Dioxide 32 H (22-30) mmol/L Creatinine 0.46 L (0.52-1.04) mg/dL Plasma Lactic Acid Blaise (0.7-2.0) mmol/L Calcium 8.3 L (8.4-10.2) mg/dL AST 65 H (14-36) U/L ALT 40 H (4-34) U/L Alkaline Phosphatase 264 H (38-126) U/L Total Protein 5.7 L (6.3-8.2) g/dL Albumin 2.9 L (3.5-5.0) g/dL Urine Appearance Cloudy H (Clear) Urine Protein 1+ H (Negative) Urine Bilirubin 1+ H (Negative) Ur Leukocyte Esterase Moderate H (Negative) Urine WBC 11 H (0-5) /hpf Urine Bacteria Rare H (None) /hpf Hyaline Casts 3 H (0-2) /lpf Urine Mucus Many H (None) /hpf 03/23/20 03/23/20 Range/Units 09:28 12:30 WBC (3.8-10.6) k/uL MCHC (31.0-37.0) g/dL RDW (11.5-15.5) % Neutrophils # (1.3-7.7) k/uL Lymphocytes # (1.0-4.8) k/uL Sodium (137-145) mmol/L Carbon Dioxide (22-30) mmol/L Creatinine (0.52-1.04) mg/dL Plasma Lactic Acid Blaise 2.5 H* 2.3 H* (0.7-2.0) mmol/L Calcium (8.4-10.2) mg/dL AST (14-36) U/L ALT (4-34) U/L Alkaline Phosphatase (38-126) U/L Total Protein (6.3-8.2) g/dL Albumin (3.5-5.0) g/dL Urine Appearance (Clear) Urine Protein (Negative) Urine Bilirubin (Negative) Ur Leukocyte Esterase (Negative) Urine WBC (0-5) /hpf Urine Bacteria (None) /hpf Hyaline Casts (0-2) /lpf Urine Mucus (None) /hpf Microbiology - Last 24 Hours (Table) 03/23/20 09:28 Urine Culture - Preliminary Urine,Voided H & H 03/23/20 Range/Units 09:28 Hgb 12.3 D (11.4-16.0) gm/dL Hct 40.4 (34.0-46.0) % Coagulation 03/23/20 Range/Units 09:28 INR 1.0 (<1.2) Result Diagrams: 03/23/20 09:28 03/23/20 09:28 - Diagnostic results Lumbar AP/lateral x-ray: report reviewed, image reviewed (Lumbar and thoracic films show evidence of fractures at L2-L3 L4-L5 and T8. Compared to prior imaging the L2 fracture may be new compared to 12/19) CT scan - lumbar myelogram: report reviewed, image reviewed (Computed tomography scan imaging from 720 shows the prior fractures from L3 L4 L5 and T8. They do not have any significant change.Films on x-ray may show new fracture at L2) Assessment and Plan Assessment: Resolving low back pain History of metastatic colon cancer Chronic compression fractures L3 L4 L5 and T8 without change Likely new superior endplate compression fracture at L2 No neurologic deficit Plan: Resolving low back pain History of metastatic colon cancer Chronic compression fractures L3 L4 L5 and T8 without change Likely new superior endplate compression fracture at L2 No neurologic deficit The patient's pain is resolved quite well with pain medication. She has been able to mobilize and ambulate her room without any problems. She is eager to go home today. I think that the chronic fractures at L3 L4 L5 and T8 are stable. Her increased pain made dry from a possible new fracture at L2. She does not have any neurologic compromise and she may do well with lumbar bracing. I have ordered her an LSO brace that she can wear when she is out of bed. She does not need to wear it while in bed for bathing. 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 I can see her back in approximately 2 or 3 weeks for recheck evaluation or sooner if she is having any problems. I answered her questions best my ability she is agreeable. We will follow her up on an outpatient basis.
[2020-03-24] MEDS: PANTOPRAZOLE 40 MG/10 ML VIAL IVP SCH (08:16)
[2020-03-24] MEDS: SODIUM CHLORIDE 5% OPHTH DROPS 15 ML BTL LEFT EYE SCH (08:16)
[2020-03-24] MEDS: MUPIROCIN 2% OINT 22 GM TUBE TOPICAL SCH (08:16)
[2020-03-24] MEDS: dexAMETHasone 4 MG TAB PO SCH (08:16)
[2020-03-24] MEDS ORDERED: ENOXAPARIN 40 MG/0.4 ML SYRINGE SQ SCH (09:00)
[2020-03-24] MEDS ORDERED: lisinopriL 10 MG TAB PO SCH (09:00)
[2020-03-24 12:32] VITALS: BP 162/96; PULSE 84; RESP 17; TEMP 98
[2020-03-24 13:04] VITALS: BMI 24.2
--- NOTE | 2020-03-24 14:02 | P.DS ---
Providers Date of admission: 03/23/20 14:05 Attending physician: Marcelino Combs Consults: 03/23/20 13:56 Consult Physician Urgent Consulting Provider: Tysno Noguera Consult Reason/Comments: Metastatic cancer Do you want consulting provider notified?: Yes 03/23/20 13:57 Consult Physician Urgent Consulting Provider: Raya Navarro Consult Reason/Comments: lumbar fracture with metastatic disease Do you want consulting provider notified?: Yes Primary care physician: Jamilah Barrera [facility] Course: 65-year-old female presents emergency Department chief complaint of back pain, joint pain. Patient states that she has metastatic colon cancer with metastases to bone. Patient states that she's had prior metastases to her spine was also recently admitted for the metastasis to the right orbital bone for which patient is presently receiving radiation therapy.. Patient states that she has a fentanyl patch and takes [place]. Patient states is not helping her pain. She states that she cannot tolerate the pain anymore. Patient states that she denies any new falls. Patient that she just generalized feels weak. she is currently on Decadron. She has no complaints of shortness of breath. Patient is found to have compression fractures which appears to be old on the lumbar x- rays. There is no evidence of metastatic disease on x-rays.. Patient does have radicular pain to both legs but denied any new weakness patient does have generalized weakness in both legs from lack of ambulation because of her cancer. Patient did not tolerate conventional chemotherapy because of which patient is oral chemotherapy at this time. Patient states that she has no complaints of abdominal pain no dysuria no hematuria no change in bowel habits. Patient's pain in the back is sharp and goes across the back. 03/24/2020 Patient is doing much better today and patient was evaluated by spinal surgeon patient does have old compression fractures patient will be discharged today with the brace. Patient will be discharged home with home care and home physical therapy. PHYSICAL EXAMINATION: GENERAL: The patient is alert and oriented x3, not in any acute distress. Thin built HEENT: Pupils are round and equally reacting to light. EOMI. No scleral icterus. No conjunctival pallor. Normocephalic, atraumatic. No pharyngeal erythema. No thyromegaly. CARDIOVASCULAR: S1 and S2 present. No murmurs, rubs, or gallops. PULMONARY: Chest is clear to auscultation, no wheezing or crackles. ABDOMEN: Soft, nontender, nondistended, normoactive bowel sounds. No palpable organomegaly. MUSCULOSKELETAL: No joint swelling or deformity. EXTREMITIES: No cyanosis, clubbing, or pedal edema. NEUROLOGICAL: Gross neurological examination did not reveal any focal deficits. Generalized weakness with some weakness in both legs which is not new and does have some muscle atrophy SKIN: No rashes. Assessment and Plan Plan: -Back pain: Patient does have chronic back pain he can be worsening of her degenerative disc disease patient does have a compression fracture in the past and there can be metastatic disease to the back as well. His pain is better will be discharged today with with the brace -Colon cancer metastatic, all the chemotherapy is on hold at this time because of non-tolerance and has metastases. -Hypertension -Leukocytosis secondary to the systemic steroids she is receiving Patient Condition at Discharge: Serious Plan - Discharge Summary Discharge Rx Participant: No New Discharge Prescriptions: No Action lisinopriL [Zestril] 20 mg PO DAILY HYDROcodone/APAP 10-325MG [[place] 10-325] 1 tab PO Q6H PRN PRN Reason: Pain Mupirocin [Mupirocin 2%] 1 applic TOPICAL BID Trifluridine/Tipiracil HCl [Lonsurf 20 mg-8.19 mg Tablet] See Taper PO DIRECTED Trifluridine/Tipiracil HCl [Lonsurf 15 mg-6.14 mg Tablet] See Taper PO DIRECTED fentaNYL [Duragesic 50MCG/HR] 50 mcg TOPICAL Q72H Sodium Chloride 5% Ophth Soln [Raad 128] 1 drop LEFT EYE QID Discharge Medication List lisinopriL [Zestril] 20 mg PO DAILY 02/24/19 [History] HYDROcodone/APAP 10-325MG [[place] 10-325] 1 tab PO Q6H PRN 04/14/19 [History] Mupirocin [Mupirocin 2%] 1 applic TOPICAL BID 03/10/20 [History] Sodium Chloride 5% Ophth Soln [Raad 128] 1 drop LEFT EYE QID 03/10/20 [History] Trifluridine/Tipiracil HCl [Lonsurf 15 mg-6.14 mg Tablet] See Taper PO DIRECTED 03/10/20 [History] Trifluridine/Tipiracil HCl [Lonsurf 20 mg-8.19 mg Tablet] See Taper PO DIRECTED 03/10/20 [History] fentaNYL [Duragesic 50MCG/HR] 50 mcg TOPICAL Q72H 03/10/20 [History] Follow up Appointment(s)/Referral(s): Sharon Askew MD [Primary Care Provider] - 03/29/20 9:40 am Raya Navarro DO [Doctor of Osteopathic Medicine] - 04/14/20 11:00 am (Please contact the billing department prior to your appointment.) Cecelia Russell, [facility] [Nurse Practitioner] - 1 Week Patient Instructions/Handouts: Vertebral Compression Fracture (DC) Activity/Diet/Wound Care/Special Instructions: May ambulate as tolerated. LSO brace for support as needed Discharge Disposition: HOME WITH HOME HEALTH SERVICES
--- NOTE | 2020-03-24 22:34 | P.CONS ---
History of Present Illness - Reason for Consult Consult date: 03/24/20 Metastatic Cancer Requesting physician: Anders Thomas - Chief Complaint Back Pain - History of Present Illness This is a very nice lady who was diagnosed with metastatic rectal cancer in ,in [place],when she presented with weight loss and diarrhea,had a colonoscopy on 12/19/2016,was found to have suspicious,non obstructing rectal mass,biopsy was positive for invasive adenocarcinoma,KRAS positive. CT scan of chest/abdomen/pelvis done on 12/27/2016 revealed large rectal mass,multiple bilateral lung nodules,largest 3.4cm in RUL,multiple subcentimeter liver lesions. Her CEA on 01/14/2017 was 149.9 She received concurrent radiation therapy and xeloda to pelvis,completed on 03/03/2017. Repeat CEA on 02/24/2017 was 78.6. She continued on oral xeloda at 1000mg bid one week on/one week off. Repeat CT scan of chest/abdomen/pelvis on 04/07/2017 revealed stable disease. Repeat CEA on 04/07/2017 was down to 57.7. On 05/19/2017,CEA was 44. MSI,BRAF,NRAS,HER2/SAMANTHA were request on the biopsy done in [facility] but COULD NOT be done except for the KRAS which was positive. On 05/28/2017,CT scan of spine revealed destructive lesion at L3 (was having significant pain),she received palliative XRT. Repeat CT scan of chest/abdomen/pelvis on 07/30/2017 revealed stable lung nodules,no progression compared to prior CT scan On 09/17/2017,CEA was 66.[address] scan of chest/abdomen/pelvis on 10/22/2017 revealed progression of her disease. Bone scan on 11/03/2017 revealed no new bone lesions. On 11/21/2019,she had repeat colonoscopy and biopsy of rectal mass,which was positive for malignancy,HER2/SAMANTHA negative,MS-I Stable.KRAS positive. On 12/09/2017,she started mFOLFOX6 regimen. On 01/06/2018,CEA was 87.9 On 01/31/2018,CEA was 37.4. On 03/03/2018,repeat CT scan of chest/abdomen/pelvis revealed improvement in her disease. She completed 11 cycles of mFOLFOX6 on 05/07/2018. ON 05/19/2018,she started maintenance infusional 5 FU On 05/13/2018,CEA was 23.5 On 06/05/2018,repeat CT scan of CAP revealed stable disease. On 06/18/2018,CEA was 30. On 08/25/2018,repeat CT scan of chest/abdomen/pelvis revealed slight increase in lung nodule,however,her CEA was up to 91.4 on 08/25/2018,infusional 5 FU was discontinued. She started FOLFIRI/avastin on 09/15/2018 On 10/06/2018,CEA was 92.2 She had total 6 cycles,was discontinued on 12/31/2018 per patient request to discontinue pump. She was started on camptosar/xeloda/avastion on 01/21/2019,however,she felt flushed,short of breath 2 days after starting xeloda,went to ER and xeloda was discontinued. On 02/10/2019,CEA was up to 132.9 On 02/24/2019,CT scan of abdomen/pelvis revealed progression of lung nodules,pathologic fracture at L4. On 03/29/2019,she started mFOLFOX6/avastin. She had a MRI in early April/2019 due to back pain which showed a lesion at T8 in April/2019 extending to spinal canal,she completed palliative XRT. On 06/04/2019,she had repeat CT scan of chest/abdomen/pelvis which revealed progression of her lung lesions( however,she had FOLFOX/avastin only 3 times since March/2019,she requested holding and delaying treatment,last treatment was on 05/10/2019). She resumed mFLOFOX6/Mvasi on 06/27/2019,she had 2 cycles,then she ended up in hospital with chest pain and dyspnea,it was felt to be coronary spasm secondary to 5 FU and treatment was discontinued on 07/06/2019. On 07/15/2019,CEA was up to140 On 08/16/2019,she started escalating dose of regorafenib. She did not shown up for follow up visit for 3 months,she stated that she is taking 1 and 1/2 pills a day,3 weeks on and one week off. On 12/03/2019,CEA was 524.8. On 12/29/2019,repeat CT scan of chest/abdomen/pelvis revealed evidence of disease progression. On 01/04/2020,CEA was up to 488. She started lonsurf in January/2020. Last seen on 03/08 and at that time she was sympyomatically pancytopenic. Her Lonsurf was placed on hold x1 week, although she did not follow-up. Review of Systems All systems: negative Constitutional: Reports as per HPI Past Medical History Past Medical History: Cancer, Eye Disorder, Hypertension, Osteoarthritis (OA) Additional Past Medical History / Comment(s): Pt recently admitted to [facility] on 03/10/20 with metastasis cancer and inflammation L eye/orbit. She states since then she has had a couple radiation treatments to L eye area. Other hx: Rectal cancer with metastasis to lung/liver/kidney and back-pt states treatments got rid of back mets, she has gone thru chemo both IV/oral and last oral chemo was 3 weeks ago, she has also had radiation treatments, anemia with transfusion 03/09/20, chronic pain from arthritis in multiple joints, start of bilateral cataracts, occasionally incontinent of urine. History of Any Multi-Drug Resistant Organisms: None Reported Past Surgical History: Section, Cholecystectomy, Heart Catheterization, Tubal Ligation Additional Past Surgical History / Comment(s): Colonoscopy, port-pt states is nonfunctioning. Past Anesthesia/Blood Transfusion Reactions: Postoperative Nausea & Vomiting (PONV) Additional Past Anesthesia/Blood Transfusion Reaction / Comm: Pt states she received her first blood transfusion on 03/09/20 without reaction. She has clausterphobia. Smoking Status: Former smoker - Past Family History Mother Family Medical History: Cancer Additional Family Medical History / Comment(s): Mother had uterine cancer. Father Family Medical History: Cancer Additional Family Medical History / Comment(s): Father had penile cancer. Sister(s) Family Medical History: Vascular Disorder Additional Family Medical History / Comment(s): Sister had a aneurysm Medications and Allergies Home Medications Medication Instructions Recorded Confirmed Type lisinopriL [Zestril] 20 mg PO DAILY 02/24/19 03/23/20 History HYDROcodone/APAP 10-325MG [[place] 1 tab PO Q6H PRN 04/14/19 03/23/20 History 10-325] Mupirocin [Mupirocin 2%] 1 applic TOPICAL BID 03/10/20 03/23/20 History Sodium Chloride 5% Ophth Soln 1 drop LEFT EYE QID 03/10/20 03/23/20 History [Raad 128] Trifluridine/Tipiracil HCl See Taper PO DIRECTED 03/10/20 03/23/20 History [Lonsurf 15 mg-6.14 mg Tablet] Trifluridine/Tipiracil HCl See Taper PO DIRECTED 03/10/20 03/23/20 History [Lonsurf 20 mg-8.19 mg Tablet] fentaNYL [Duragesic 50MCG/HR] 50 mcg TOPICAL Q72H 03/10/20 03/23/20 History Allergies Allergy/AdvReac Type Severity Reaction Status Date / Time bee venom protein (honey bee) Allergy Anaphylaxis Verified 03/23/20 13:58 capecitabine [From Xeloda] Allergy Unknown Verified 03/23/20 13:58 morphine AdvReac Confusion Verified 03/23/20 13:58 Physical Exam Vitals: Vital Signs Temp Pulse Pulse Resp BP BP Pulse Ox 03/24/20 12:21 98 F 84 17 162/96 97 03/24/20 06:22 73 18 139/93 03/24/20 05:00 98.0 F 76 18 165/99 97 03/23/20 20:00 98.2 F 87 18 103/73 96 03/23/20 18:16 98.1 F 99 18 99/72 95 03/23/20 16:26 87 18 108/86 94 L 03/23/20 13:38 108 H 18 109/91 95 Intake and Output 03/23/20 03/24/20 03/24/20 22:59 06:59 14:59 Intake Total 490 300 Balance 490 300 Intake: Oral 490 300 Other: Voiding Method Bedside Commode Bedside Commode # Voids 1 2 # Bowel Movements 1 Weight 56.245 kg - Constitutional General appearance: cooperative, thin - EENT Left ye swelling and face assympterical Eyes: abnormal pupil ENT: hard of hearing, NA/AT - Respiratory Respiratory: bilateral: diminished - Cardiovascular Rhythm: regular Heart sounds: normal: S1, S2 - Gastrointestinal Right upper ext pain and swelling General gastrointestinal: soft - Integumentary Integumentary: pale - Neurologic [place] - Musculoskeletal Musculoskeletal: generalized weakness - Psychiatric Psychiatric: A&O x's 3 Results CBC & Chem 7: 03/23/20 09:28 03/23/20 09:28 Labs: Abnormal Lab Results - Last 24 Hours (Table) 03/23/20 03/23/20 Range/Units 09:28 12:30 Plasma Lactic Acid [place] 2.3 H* (0.7-2.0) mmol/L Urine Appearance Cloudy H (Clear) Urine Protein 1+ H (Negative) Urine Bilirubin 1+ H (Negative) Ur Leukocyte Esterase Moderate H (Negative) Urine WBC 11 H (0-5) /hpf Urine Bacteria Rare H (None) /hpf Hyaline Casts 3 H (0-2) /lpf Urine Mucus Many H (None) /hpf Microbiology - Last 24 Hours (Table) 03/23/20 09:28 Urine Culture - Preliminary Urine,Voided Assessment and Plan Plan: CT Scan - head: report reviewed Assessment and Plan (1) Neoplastic related pain. (2) Metastasis from rectal cancer Current Visit: Yes Status: Acute Code(s): C79.9 - SECONDARY MALIGNANT NEOPLASM OF UNSPECIFIED SITE; C20 - MALIGNANT NEOPLASM OF RECTUM SNOMED Code(s): 536822317 Plan: Last admission MRI brain was ordered, I do not see she ever followed up on this. Agree with brace and supportive pain management Palliaitive home care services were ordered last admission and last office visit too, will need to follow-up to ensure this is in place I will discuss possible addition of xgeva or zometa with primary oncologist Continue on lonsuurf Follow-up in 1-2 weeks in office
== END 2020-03-24 14:50 | disposition home health service (06) | DRG 543 ==
LOC: EC 09:04 → 6NMEDSUR 14:05
PROVIDERS: ADMIT Hospitalist; ATTEND Hospitalist
DX: M48.56XA Collapsed vertebra, not elsewhere classified, lumbar region, initial encounter for fracture (principal); C79.51 Secondary malignant neoplasm of bone; C78.02 Secondary malignant neoplasm of left lung; C78.01 Secondary malignant neoplasm of right lung; C78.7 Secondary malignant neoplasm of liver and intrahepatic bile duct; C20 Malignant neoplasm of rectum; M84.58XS Pathological fracture in neoplastic disease, other specified site, sequela; G89.3 Neoplasm related pain (acute) (chronic); D72.829 Elevated white blood cell count, unspecified; T38.0X5A Adverse effect of glucocorticoids and synthetic analogues, initial encounter; G89.29 Other chronic pain; I10 Essential (primary) hypertension; M19.90 Unspecified osteoarthritis, unspecified site; H26.9 Unspecified cataract; R32 Unspecified urinary incontinence; Z79.891 Long term (current) use of opiate analgesic; Z79.899 Other long term (current) drug therapy; Z87.891 Personal history of nicotine dependence; Z98.891 History of uterine scar from previous surgery; Z87.19 Personal history of other diseases of the digestive system; Z90.49 Acquired absence of other specified parts of digestive tract; Z98.51 Tubal ligation status; Z98.890 Other specified postprocedural states; Z88.8 Allergy status to other drugs, medicaments and biological substances; Z88.5 Allergy status to narcotic agent; Z91.030 Bee allergy status; Z80.49 Family history of malignant neoplasm of other genital organs; Z82.49 Family history of ischemic heart disease and other diseases of the circulatory system
CPT/HCPCS: 36415; 72070; 72100; 80053; 81001; 82550; 83605; 83735; 84484; 85025; 85610; 85730; 87077; 87086; 87186; 93005; 96374; 96375; 96376; 99285

== ENCOUNTER 2020-04-03 13:14 | Inpatient (IN) | payer MEDICARE, OTHER ==
[2020-04-03 13:25] VITALS: TEMP 98.9
[2020-04-03] MEDS ORDERED: SODIUM CHLORIDE 0.9% 1,000 ML IV STA (13:53)
[2020-04-03] MEDS ORDERED: SODIUM CHLORIDE 0.9% 500 ML 500 ML IV STA (13:53)
--- NOTE | 2020-04-03 13:59 | ED ---
Weakness HPI - General Chief complaint: Weakness Stated complaint: nausea, not feeling right Time Seen by Provider: 04/03/20 13:31 Source: patient, family, RN notes reviewed, old records reviewed Mode of arrival: ambulatory Limitations: no limitations - History of Present Illness Initial comments: This is a 65-year-old female history of metastatic cancer of the rectum to the lungs liver kidney history of hypertension and cholecystectomy past who presents with complaints of generalized weakness episode of dizziness with profound weakness some back pain peripheral edema that she to the feet she is generally does not feel well and feels cold. She also states she's had dark urine. No trauma reported this time. Cough or phlegm production. MD Complaint: generalized weakness - Related Data Home Medications Medication Instructions Recorded Confirmed lisinopriL [Zestril] 20 mg PO DAILY 02/24/19 03/23/20 HYDROcodone/APAP 10-325MG [[place] 1 tab PO Q6H PRN 04/14/19 03/23/20 10-325] Mupirocin [Mupirocin 2%] 1 applic TOPICAL BID 03/10/20 03/23/20 Sodium Chloride 5% Ophth Soln 1 drop LEFT EYE QID 03/10/20 03/23/20 [Raad 128] Trifluridine/Tipiracil HCl See Taper PO DIRECTED 03/10/20 03/23/20 [Lonsurf 15 mg-6.14 mg Tablet] Trifluridine/Tipiracil HCl See Taper PO DIRECTED 03/10/20 03/23/20 [Lonsurf 20 mg-8.19 mg Tablet] fentaNYL [Duragesic 50MCG/HR] 50 mcg TOPICAL Q72H 03/10/20 03/23/20 Allergies Allergy/AdvReac Type Severity Reaction Status Date / Time bee venom protein (honey bee) Allergy Anaphylaxis Verified 04/03/20 13:25 capecitabine [From Xeloda] Allergy Unknown Verified 04/03/20 13:25 morphine AdvReac Confusion Verified 04/03/20 13:25 Review of Systems ROS Statement: Those systems with pertinent positive or pertinent negative responses have been documented in the HPI. ROS Other: All systems not noted in ROS Statement are negative. Past Medical History Past Medical History: Cancer, Eye Disorder, Hypertension, Osteoarthritis (OA) Additional Past Medical History / Comment(s): Pt recently admitted to [facility] on 03/10/20 with metastasis cancer and inflammation L eye/orbit. She states since then she has had a couple radiation treatments to L eye area. Other hx: Rectal cancer with metastasis to lung/liver/kidney and back-pt states treatments got rid of back mets, she has gone thru chemo both IV/oral and last oral chemo was 3 weeks ago, she has also had radiation treatments, anemia with transfusion 03/09/20, chronic pain from arthritis in multiple joints, start of bilateral cataracts, occasionally incontinent of urine. History of Any Multi-Drug Resistant Organisms: None Reported Past Surgical History: Section, Cholecystectomy, Heart Catheterization, Tubal Ligation Additional Past Surgical History / Comment(s): Colonoscopy, port-pt states is nonfunctioning. Past Anesthesia/Blood Transfusion Reactions: Postoperative Nausea & Vomiting (PONV) Additional Past Anesthesia/Blood Transfusion Reaction / Comment(s): Pt states she received her first blood transfusion on 03/09/20 without reaction. She has clausterphobia. Past Psychological History: No Psychological Hx Reported Smoking Status: Former smoker Past Alcohol Use History: None Reported Past Drug Use History: None Reported - Past Family History Mother Family Medical History: Cancer Additional Family Medical History / Comment(s): Mother had uterine cancer. Father Family Medical History: Cancer Additional Family Medical History / Comment(s): Father had penile cancer. Sister(s) Family Medical History: Vascular Disorder Additional Family Medical History / Comment(s): Sister had a aneurysm General Exam - General Exam Comments Initial Comments: this is a well-developed asthenic appearing female who is awake alert oriented 3 Limitations: no limitations General appearance: alert, in no apparent distress Head exam: Present: atraumatic, normocephalic, normal inspection Eye exam: Present: normal appearance, PERRL, EOMI. Absent: scleral icterus, conjunctival injection, periorbital swelling ENT exam: Present: mucous membranes dry Neck exam: Present: normal inspection. Absent: tenderness, meningismus, lymphadenopathy Respiratory exam: Present: normal lung sounds bilaterally. Absent: respiratory distress, wheezes, rales, rhonchi, stridor Cardiovascular Exam: Present: regular rate, normal rhythm, normal heart sounds. Absent: systolic murmur, diastolic murmur, rubs, gallop, clicks GI/Abdominal exam: Present: soft, normal bowel sounds. Absent: distended, tenderness, guarding, rebound, rigid Extremities exam: Present: normal inspection, full ROM, normal capillary refill, pedal edema. Absent: tenderness, joint swelling, calf tenderness Back exam: Present: normal inspection Neurological exam: Present: alert, oriented X3, CN II-XII intact Psychiatric exam: Present: normal affect, normal mood Skin exam: Present: warm, dry, intact, normal color. Absent: rash Course Vital Signs 04/03/20 13:22 Temperature 98.9 F Pulse Rate 72 Respiratory 18 Rate Blood Pressure 93/65 O2 Sat by Pulse 94 L Oximetry EKG Findings - EKG Results: EKG: interpreted by ERMD, sinus rhythm (Sinus tachycardia with a sees rate 119. Interval 160 QRS duration 62 QT since QTC 3:30/464 left exodeviation LVH nonspecific inferior configuration.) Medical Decision Making - Medical Decision Making I did discuss findings with patient family and with Dr. Jarrett the patient will be admitted for IV hydration. Also in patient further evaluation - Lab Data Result diagrams: 04/03/20 13:57 04/03/20 13:57 Lab Results 04/03/20 04/03/20 04/03/20 Range/Units 13:57 13:57 13:57 WBC 6.4 (3.8-10.6) k/uL RBC 3.92 (3.80-5.40) m/uL Hgb 11.0 L (11.4-16.0) gm/dL Hct 37.0 (34.0-46.0) % MCV 94.6 (80.0-100.0) fL MCH 28.1 (25.0-35.0) pg MCHC 29.7 L (31.0-37.0) g/dL RDW 21.4 H (11.5-15.5) % Plt Count 268 (150-450) k/uL Neutrophils % (Manual) 78 % Lymphocytes % (Manual) 15 % Monocytes % (Manual) 6 % Eosinophils % (Manual) 1 % Neutrophils # (Manual) 4.99 (1.3-7.7) k/uL Lymphocytes # (Manual) 0.96 L (1.0-4.8) k/uL Monocytes # (Manual) 0.38 (0-1.0) k/uL Eosinophils # (Manual) 0.06 (0-0.7) k/uL Nucleated RBCs 0 (0-0) /100 WBC Manual Slide Review Performed Hypochromasia Marked Anisocytosis Moderate Macrocytosis Slight Sodium 134 L (137-145) mmol/L Potassium 3.3 L (3.5-5.1) mmol/L Chloride 98 (98-107) mmol/L Carbon Dioxide 32 H (22-30) mmol/L Anion Gap 4 mmol/L BUN 16 (7-17) mg/dL Creatinine 0.51 L (0.52-1.04) mg/dL Est GFR (CKD-EPI)AfAm >90 (>60 ml/min/1.73 sqM) Est GFR (CKD-EPI)NonAf >90 (>60 ml/min/1.73 sqM) Glucose 89 (74-99) mg/dL Calcium 8.4 (8.4-10.2) mg/dL Magnesium 2.1 (1.6-2.3) mg/dL Total Bilirubin 0.9 (0.2-1.3) mg/dL AST 65 H (14-36) U/L ALT 16 (4-34) U/L Alkaline Phosphatase 527 H (38-126) U/L Creatine Kinase 45 (30-135) U/L Troponin I (0.000-0.034) ng/mL Total Protein 5.6 L (6.3-8.2) g/dL Albumin 2.7 L (3.5-5.0) g/dL Lipase 86 (23-300) U/L Urine Color Dark Yellow Urine Appearance Clear (Clear) Urine pH 5.5 (5.0-8.0) Ur Specific [place] 1.036 H (1.001-1.035) Urine Protein 1+ H (Negative) Urine Glucose (UA) Negative (Negative) Urine Ketones Trace H (Negative) Urine Blood Negative (Negative) Urine Nitrite Negative (Negative) Urine Bilirubin 1+ H (Negative) Urine Urobilinogen 12.0 (<2.0) mg/dL Ur Leukocyte Esterase Small H (Negative) Urine RBC 1 (0-5) /hpf Urine WBC 5 (0-5) /hpf Ur Squamous Epith Cells 1 (0-4) /hpf Hyaline Casts 30 H (0-2) /lpf Urine Mucus Many H (None) /hpf 04/03/20 Range/Units 13:57 WBC (3.8-10.6) k/uL RBC (3.80-5.40) m/uL Hgb (11.4-16.0) gm/dL Hct (34.0-46.0) % MCV (80.0-100.0) fL MCH (25.0-35.0) pg MCHC (31.0-37.0) g/dL RDW (11.5-15.5) % Plt Count (150-450) k/uL Neutrophils % (Manual) % Lymphocytes % (Manual) % Monocytes % (Manual) % Eosinophils % (Manual) % Neutrophils # (Manual) (1.3-7.7) k/uL Lymphocytes # (Manual) (1.0-4.8) k/uL Monocytes # (Manual) (0-1.0) k/uL Eosinophils # (Manual) (0-0.7) k/uL Nucleated RBCs (0-0) /100 WBC Manual Slide Review Hypochromasia Anisocytosis Macrocytosis Sodium (137-145) mmol/L Potassium (3.5-5.1) mmol/L Chloride (98-107) mmol/L Carbon Dioxide (22-30) mmol/L Anion Gap mmol/L BUN (7-17) mg/dL Creatinine (0.52-1.04) mg/dL Est GFR (CKD-EPI)AfAm (>60 ml/min/1.73 sqM) Est GFR (CKD-EPI)NonAf (>60 ml/min/1.73 sqM) Glucose (74-99) mg/dL Calcium (8.4-10.2) mg/dL Magnesium (1.6-2.3) mg/dL Total Bilirubin (0.2-1.3) mg/dL AST (14-36) U/L ALT (4-34) U/L Alkaline Phosphatase (38-126) U/L Creatine Kinase (30-135) U/L Troponin I <0.012 (0.000-0.034) ng/mL Total Protein (6.3-8.2) g/dL Albumin (3.5-5.0) g/dL Lipase (23-300) U/L Urine Color Urine Appearance (Clear) Urine pH (5.0-8.0) Ur Specific [place] (1.001-1.035) Urine Protein (Negative) Urine Glucose (UA) (Negative) Urine Ketones (Negative) Urine Blood (Negative) Urine Nitrite (Negative) Urine Bilirubin (Negative) Urine Urobilinogen (<2.0) mg/dL Ur Leukocyte Esterase (Negative) Urine RBC (0-5) /hpf Urine WBC (0-5) /hpf Ur Squamous Epith Cells (0-4) /hpf Hyaline Casts (0-2) /lpf Urine Mucus (None) /hpf - Radiology Data Radiology results: report reviewed ( disease both lung maki.), image reviewed Disposition Clinical Impression: Metastatic cancer, Dehydration, Failure to thrive, Hypotensive episode Disposition: ADMITTED IP TO THIS HOSP Condition: Fair Referrals: Sharon Askew MD [Primary Care Provider] - 1-2 days
[2020-04-03] MEDS ORDERED: SODIUM CHLORIDE 5% OPHTH DROPS 15 ML BTL BOTH EYES STA (14:21)
[2020-04-03 14:24] LABS: Anisocytosis Moderate; Hypochromasia Marked; MCH 28.1 pg (25.0-35.0); MCHC 29.7 g/dL (31.0-37.0); MCV 94.6 fL (80.0-100.0); Macrocytosis Slight; Mean Platelet Volume 7.2; Platelet Count 268 k/uL (150-450); RBC 3.92 m/uL (3.80-5.40); RDW 21.4 % (11.5-15.5); WBC 6.4 k/uL (3.8-10.6)
[2020-04-03 14:36] LABS: ALT 16 U/L (4-34); AST 65 U/L (14-36); African American GFR (CKD) >90 (>60 ml/min/1.73 sqM); Albumin 2.7 g/dL (3.5-5.0); Alkaline Phosphatase 527 U/L (38-126); Anion Gap 4 mmol/L; Blood Urea Nitrogen 16 mg/dL (7-17); Calcium 8.4 mg/dL (8.4-10.2); Carbon Dioxide 32 mmol/L (22-30); Chloride 98 mmol/L (98-107); Creatine Kinase 45 U/L (30-135); Glucose 89 mg/dL (74-99); Magnesium 2.1 mg/dL (1.6-2.3); Non-African American GFR(CKD) >90 (>60 ml/min/1.73 sqM); Potassium 3.3 mmol/L (3.5-5.1); Sodium 134 mmol/L (137-145); Total Bilirubin 0.9 mg/dL (0.2-1.3); Total Protein 5.6 g/dL (6.3-8.2)
--- NOTE | 2020-04-03 15:08 | XR ---
EXAMINATION TYPE: XR chest 2V DATE OF EXAM: 04/03/2020 COMPARISON: Chest x-ray and CT July 06, 2019. Most recent CT December 29, 2019. HISTORY: History of metastatic cancer with pain and nausea. TECHNIQUE: Frontal and lateral views of the chest are obtained. FINDINGS: There our multifocal bilateral nodules and masses redemonstrated. No pleural effusion or p neumothorax seen. The lung volumes redemonstrated. Stable right subclavian Mediport catheter. The car diac silhouette size is stable and within normal limits. Cholecystectomy clips noted. Pathologic comp ression fracture L3 level redemonstrated. Osseous structures are demineralized. Additional compressio n pathologic fracture T8 level less well seen versus recent CT. IMPRESSION: Diffuse metastatic disease remains present and low lung volumes. No definitive new focal infiltrate.
[2020-04-03 15:25] LABS: Eosinophils # (M) 0.06 k/uL (0-0.7); Lymphocytes # (M) 0.96 k/uL (1.0-4.8); Monocytes # (M) 0.38 k/uL (0-1.0); Neutrophils # (M) 4.99 k/uL (1.3-7.7); Neutrophils % (M) 78 %; Nucleated Red Blood Cells 0 /100 WBC (0-0); Total Cells Counted 100
[2020-04-03 15:48] LABS: Appearance,Urine Clear (Clear); Bilirubin,Urine 1+ (Negative); Blood,Urine Negative (Negative); Color,Urine Dark Yellow; Glucose,Urine (UA) Negative (Negative); Hyaline Casts,Urine 30 /lpf (0-2); Ketones,Urine Trace (Negative); Leukocyte Esterase,Urine Small (Negative); Mucus,Urine Many /hpf; Nitrite,Urine Negative (Negative); PH, Urine 5.5 (5.0-8.0); Protein,Urine 1+ (Negative); RBC,Urine 1 /hpf (0-5); Specific Gravity,Urine 1.036 (1.001-1.035); Squamous Epithelial Cell,Urine 1 /hpf (0-4); WBC,Urine 5 /hpf (0-5)
[2020-04-03] MEDS ORDERED: NALOXONE 0.4 MG/ML 1 ML VIAL IV PRN (16:00)
[2020-04-03] MEDS: HYDROcodone/APAP 10-325MG 1 EACH TAB PO PRN ×2 (16:52→22:51)
[2020-04-03] MEDS: MUPIROCIN 2% OINT 22 GM TUBE TOPICAL SCH ×2 (22:14→22:17)
[2020-04-03] MEDS ORDERED: ZINC OXIDE TOPICAL PRN (22:57)
--- NOTE | 2020-04-03 22:59 | P.HPIM ---
History of Present Illness H&P Date: 04/03/20 Chief Complaint: fatigue and generalized weakness Ms. Cobb is a 65-year-old female with a past medical history of rectal cancer with metastasis to bone, liver, lung, kidney status post chemotherapy and radiation coming in with a chief complaint of generalized weakness, dizziness along with swelling of her lower extremities. She follows with Dr. Noguera as outpatient for her rectal cancer. Patient states for the past 3 to 4 weeks she has been having increased fatigue along with swelling of her lower extremities. She also complains of pain all over her body. Patient does not have any focal weakness. She denies having any chest pain or palpitations. No cough or difficulty in breathing. No abdominal pain nausea vomiting or diarrhea. She complains of dark-colored urine but no hematuria. In the ER patient was found to have low blood pressure of 93/65, afebrile, heart rate 70s, respiratory rate 18, saturation 94% on room air. She had blood work done showing hemoglobin of 11, platelets 268, white count of 6.4. Sodium 134, potassium 3.3, chloride 98, bicarb 32, BUN 16, creatinine 0.51. AST 65, ALT 16, alkaline phosphatase 527. Troponin less than 0.012. Albumin 2.7. Urine analysis positive for small leukocyte esterase along with trace ketones. So patient is admitted for dehydration and failure to thrive. Review of Systems REVIEW OF SYSTEMS: CONSTITUTIONAL: No fever, no malaise, no fatigue. HEENT: No recent visual problems or hearing problems. Denied any sore throat. CARDIOVASCULAR: No chest pain, orthopnea, PND, no palpitations, no syncope. PULMONARY: No shortness of breath, no cough, no hemoptysis. GASTROINTESTINAL: No diarrhea, no nausea, no vomiting, no abdominal pain. NEUROLOGICAL: No headaches, no weakness, no numbness. HEMATOLOGICAL: Denies any bleeding or petechiae. GENITOURINARY: Denies any burning micturition, frequency, or urgency. MUSCULOSKELETAL/RHEUMATOLOGICAL: As mentioned in HPI ENDOCRINE: Denies any polyuria or polydipsia. The rest of the 14-point review of systems is negative. Past Medical History Past Medical History: Cancer, Eye Disorder, Hypertension, Osteoarthritis (OA) Additional Past Medical History / Comment(s): Pt recently admitted to [facility] on 03/10/20 with metastasis cancer and inflammation L eye/orbit. She states since then she has had a couple radiation treatments to L eye area. Other hx: Rectal cancer with metastasis to lung/liver/kidney and back-pt states treatments got rid of back mets, she has gone thru chemo both IV/oral and last oral chemo was 3 weeks ago, she has also had radiation treatments, anemia with transfusion 03/09/20, chronic pain from arthritis in multiple joints, start of bilateral cataracts, occasionally incontinent of urine. History of Any Multi-Drug Resistant Organisms: None Reported Past Surgical History: Section, Cholecystectomy, Heart Catheterization, Tubal Ligation Additional Past Surgical History / Comment(s): Colonoscopy, port-pt states is nonfunctioning. Past Anesthesia/Blood Transfusion Reactions: Postoperative Nausea & Vomiting (PONV) Additional Past Anesthesia/Blood Transfusion Reaction / Comment(s): Pt states she received her first blood transfusion on 03/09/20 without reaction. She has c lausterphobia. Past Psychological History: No Psychological Hx Reported Smoking Status: Former smoker Past Alcohol Use History: None Reported Past Drug Use History: None Reported - Past Family History Mother Family Medical History: Cancer Additional Family Medical History / Comment(s): Mother had uterine cancer. Father Family Medical History: Cancer Additional Family Medical History / Comment(s): Father had penile cancer. Sister(s) Family Medical History: Vascular Disorder Additional Family Medical History / Comment(s): Sister had a aneurysm Medications and Allergies Home Medications Medication Instructions Recorded Confirmed Type lisinopriL [Zestril] 20 mg PO DAILY 02/24/19 04/03/20 History HYDROcodone/APAP 10-325MG [[place] 1 tab PO Q6H PRN 04/14/19 04/03/20 History 10-325] Sodium Chloride 5% Ophth Soln 1 drop BOTH EYES TID 03/10/20 04/03/20 History [Raad 128] Trifluridine/Tipiracil HCl See Taper PO DIRECTED 03/10/20 04/03/20 History [Lonsurf 15 mg-6.14 mg Tablet] Trifluridine/Tipiracil HCl See Taper PO DIRECTED 03/10/20 04/03/20 History [L[place] 20 mg-8.19 mg Tablet] fentaNYL [Duragesic 50MCG/HR] 50 mcg TOPICAL Q72H 03/10/20 04/03/20 History Hydrochlorothiazide 12.5 mg PO DAILY PRN 04/03/20 04/03/20 History [hydroCHLOROthiazide] Zinc Oxide [Desitin] 1 applic TOPICAL Q2H PRN 04/03/20 04/03/20 History Allergies Allergy/AdvReac Type Severity Reaction Status Date / Time bee venom protein (honey bee) Allergy Anaphylaxis Verified 04/03/20 17:44 capecitabine [From Xeloda] Allergy Unknown Verified 04/03/20 17:44 morphine AdvReac Confusion Verified 04/03/20 17:44 Physical Exam Vitals: Vital Signs Temp Pulse Resp BP Pulse Ox 04/03/20 13:22 98.9 F 72 18 93/65 94 L Intake and Output 04/03/20 04/03/20 04/03/20 06:59 14:59 22:59 Other: Weight 56.245 kg PHYSICAL EXAMINATION: GENERAL: The patient is alert and oriented x3, not in any acute distress. Thin built HEENT: Pupils are round and equally reacting to light. EOMI. No scleral icterus. No conjunctival pallor. Normocephalic, atraumatic. Thickening of skin over the left eyebrow CARDIOVASCULAR: S1 and S2 present. No murmurs, rubs, or gallops. PULMONARY: Chest is clear to auscultation, no wheezing or crackles. ABDOMEN: Soft, nontender, nondistended, normoactive bowel sounds. No palpable organomegaly. MUSCULOSKELETAL: No joint swelling or deformity. EXTREMITIES: bilateral pedal edema. NEUROLOGICAL: Gross neurological examination did not reveal any focal deficits. Generalized weakness with some weakness in both legs which is not new and does have some muscle atrophy. SKIN: No rashes.PHYSICAL EXAM Results CBC & Chem 7: 04/03/20 13:57 04/03/20 13:57 Labs: Abnormal Lab Results - Last 24 Hours (Table) 04/03/20 04/03/20 04/03/20 Range/Units 13:57 13:57 13:57 Hgb 11.0 L (11.4-16.0) gm/dL MCHC 29.7 L (31.0-37.0) g/dL RDW 21.4 H (11.5-15.5) % Lymphocytes # (Manual) 0.96 L (1.0-4.8) k/uL Sodium 134 L (137-145) mmol/L Potassium 3.3 L (3.5-5.1) mmol/L Carbon Dioxide 32 H (22-30) mmol/L Creatinine 0.51 L (0.52-1.04) mg/dL AST 65 H (14-36) U/L Alkaline Phosphatase 527 H (38-126) U/L Total Protein 5.6 L (6.3-8.2) g/dL Albumin 2.7 L (3.5-5.0) g/dL Ur Specific [place] 1.036 H (1.001-1.035) Urine Protein 1+ H (Negative) Urine Ketones Trace H (Negative) Urine Bilirubin 1+ H (Negative) Ur Leukocyte Esterase Small H (Negative) Hyaline Casts 30 H (0-2) /lpf Urine Mucus Many H (None) /hpf Assessment and Plan Assessment: ASSESSMENT Generalized weakness Failure to thrive Hypotension Dehydration Severe protein calorie malnutrition Rectal cancer with multiple metastasis Chronic pain from malignancy PLAN: Patient's blood pressure was low at the time of admission, she received IV fluids and her blood pressure is trending up slowly. We will continue with supportive management. Patient mainly coming in with lower extremity swelling which could be due to her low albumin level. She also is complaining of poor appetite and failure to thrive. Oncology Dr. Noguera has been consulted. Patient restarted on her home medications. Further recommendations depending on the progress of the patient.
[2020-04-04] MEDS: HYDROcodone/APAP 10-325MG 1 EACH TAB PO PRN (05:48)
[2020-04-04 06:24] VITALS: BP 139/93; PULSE 63; RESP 18
[2020-04-04] MEDS: MUPIROCIN 2% OINT 22 GM TUBE TOPICAL SCH (08:17)
[2020-04-04] MEDS ORDERED: ENOXAPARIN 30 MG/0.3 ML SYRINGE SQ SCH (09:00)
[2020-04-04] MEDS ORDERED: SODIUM CHLORIDE 5% OPHTH DROPS 15 ML BTL BOTH EYES SCH (09:00)
== END 2020-04-04 09:13 | disposition left against medical advice (07) | DRG 640 ==
LOC: EC 13:14 → 6NMEDSUR 16:00
PROVIDERS: ADMIT Internal Medicine; ATTEND Internal Medicine
DX: E86.0 Dehydration (principal); E43 Unspecified severe protein-calorie malnutrition; C20 Malignant neoplasm of rectum; C79.51 Secondary malignant neoplasm of bone; C78.7 Secondary malignant neoplasm of liver and intrahepatic bile duct; C78.02 Secondary malignant neoplasm of left lung; C78.01 Secondary malignant neoplasm of right lung; C79.00 Secondary malignant neoplasm of unspecified kidney and renal pelvis; R62.7 Adult failure to thrive; I95.9 Hypotension, unspecified; G89.3 Neoplasm related pain (acute) (chronic); I10 Essential (primary) hypertension; R60.0 Localized edema; R32 Unspecified urinary incontinence; R53.1 Weakness; G89.29 Other chronic pain; M15.9 Polyosteoarthritis, unspecified; H26.9 Unspecified cataract; Z68.24 Body mass index [BMI] 24.0-24.9, adult; Z79.899 Other long term (current) drug therapy; Z79.891 Long term (current) use of opiate analgesic; Z88.5 Allergy status to narcotic agent; Z88.8 Allergy status to other drugs, medicaments and biological substances; Z91.030 Bee allergy status; Z92.3 Personal history of irradiation; Z87.891 Personal history of nicotine dependence; Z87.19 Personal history of other diseases of the digestive system; Z90.49 Acquired absence of other specified parts of digestive tract; Z98.890 Other specified postprocedural states; Z98.51 Tubal ligation status; Z80.49 Family history of malignant neoplasm of other genital organs; Z82.49 Family history of ischemic heart disease and other diseases of the circulatory system
CPT/HCPCS: 36415; 71046; 80053; 81001; 82550; 83690; 83735; 84484; 85025; 93005; 96360; 96361; 96372; 99285

== ENCOUNTER 2020-04-09 22:42 | Inpatient (IN) | payer MEDICARE, OTHER ==
--- NOTE | 2020-04-09 23:34 | ED ---
General Adult HPI - General Chief complaint: Abdominal Pain Stated complaint: abd pain,legs swelling Time Seen by Provider: 04/09/20 23:21 Source: patient, RN notes reviewed Mode of arrival: wheelchair Limitations: no limitations - History of Present Illness Initial comments: 65-year-old female with a past medical history of rectal cancer with metastasis to bone liver or lung kidney last received chemo 4 months ago due to start again tomorrow presents to the emergency room for a chief complaint of not feeling well. Patient states that for the past day she has had a dry cough and nausea. She has not been feeling herself. Denies associated abdominal pain. She denies chest pain or shortness of breath. She denies fever or chills.Patient has no ot her complaints at this time including shortness of breath, chest pain, abdominal pain,headache, or visual changes. - Related Data Home Medications Medication Instructions Recorded Confirmed lisinopriL [Zestril] 20 mg PO DAILY 02/24/19 04/03/20 HYDROcodone/APAP 10-325MG [[place] 1 tab PO Q6H PRN 04/14/19 04/03/20 10-325] Sodium Chloride 5% Ophth Soln 1 drop BOTH EYES TID 03/10/20 04/03/20 [Raad 128] Trifluridine/Tipiracil HCl See Taper PO DIRECTED 03/10/20 04/03/20 [[place] 15 mg-6.14 mg Tablet] Trifluridine/Tipiracil HCl See Taper PO DIRECTED 03/10/20 04/03/20 [[place] 20 mg-8.19 mg Tablet] fentaNYL [Duragesic 50MCG/HR] 50 mcg TOPICAL Q72H 03/10/20 04/03/20 Hydrochlorothiazide 12.5 mg PO DAILY PRN 04/03/20 04/03/20 [hydroCHLOROthiazide] Zinc Oxide [Desitin] 1 applic TOPICAL Q2H PRN 04/03/20 04/03/20 Allergies Allergy/AdvReac Type Severity Reaction Status Date / Time bee venom protein (honey bee) Allergy Anaphylaxis Verified 04/09/20 23:12 capecitabine [From Xeloda] Allergy Unknown Verified 04/09/20 23:12 morphine AdvReac Confusion Verified 04/09/20 23:12 Review of Systems ROS Statement: Those systems with pertinent positive or pertinent negative responses have been documented in the HPI. ROS Other: All systems not noted in ROS Statement are negative. Past Medical History Past Medical History: Cancer, Eye Disorder, Hypertension, Osteoarthritis (OA) Additional Past Medical History / Comment(s): Pt recently admitted to [facility] on with metastasis cancer and inflammation L eye/orbit. She states since then she has had a couple radiation treatments to L eye area. Other hx: Rectal cancer with metastasis to lung/liver/kidney and back-pt states treatments got rid of back mets, she has gone thru chemo both IV/oral and last oral chemo was 3 weeks ago, she has also had radiation treatments, anemia with transfusion 03/09/20, chronic pain from arthritis in multiple joints, start of bilateral cataracts, occasionally incontinent of urine. History of Any Multi-Drug Resistant Organisms: None Reported Past Surgical History: Section, Cholecystectomy, Heart Catheterization, Tubal Ligation Additional Past Surgical History / Comment(s): Colonoscopy, port-pt states is nonfunctioning. Past Anesthesia/Blood Transfusion Reactions: Postoperative Nausea & Vomiting (PONV) Additional Past Anesthesia/Blood Transfusion Reaction / Comment(s): Pt states she received her first blood transfusion on 03/09/20 without reaction. She has clausterphobia. Past Psychological History: No Psychological Hx Reported Smoking Status: Former smoker Past Alcohol Use History: None Reported Past Drug Use History: None Reported - Past Family History Mother Family Medical History: Cancer Additional Family Medical History / Comment(s): Mother had uterine cancer. Father Family Medical History: Cancer Additional Family Medical History / Comment(s): Father had penile cancer. Sister(s) Family Medical History: Vascular Disorder Additional Family Medical History / Comment(s): Sister had a aneurysm General Exam Limitations: no limitations General appearance: alert, in no apparent distress Head exam: Present: atraumatic, normocephalic, normal inspection Eye exam: Present: normal appearance, PERRL, EOMI. Absent: scleral icterus, conjunctival injection, periorbital swelling ENT exam: Present: normal exam, mucous membranes moist Neck exam: Present: normal inspection, full ROM. Absent: tenderness, meningismus, lymphadenopathy Respiratory exam: Present: normal lung sounds bilaterally. Absent: respiratory distress, wheezes, rales, rhonchi, stridor Cardiovascular Exam: Present: regular rate, normal rhythm, normal heart sounds. Absent: systolic murmur, diastolic murmur, rubs, gallop, clicks GI/Abdominal exam: Present: soft, normal bowel sounds. Absent: distended, tenderness, guarding, rebound, rigid Extremities exam: Present: other (Patient does have 3+ pitting edema noted to the bilateral lower extremities) Course Vital Signs 04/09/20 04/09/20 04/10/20 23:07 23:32 01:00 Temperature 98.7 F Pulse Rate 110 H 104 H 113 H Respiratory 16 12 20 Rate Blood Pressure 92/64 131/87 120/70 O2 Sat by Pulse 85 L 95 94 L Oximetry EKG Findings - EKG Comments: EKG Findings:: Sinus tachycardia, ventricular rate 126, AK interval 130, QTC 431 Medical Decision Making - Medical Decision Making Patient presents initially with a hypotensive blood pressure however on recheck this is normal before any intervention. Patient was 85% on room air. She did improve after 2 L of oxygen was administered. She does not appear in any respiratory distress whatsoever. She is speaking in full sentences. She is complaining of mild cough and general malaise. Patient is Covid positive. CT chest and she for PE was ordered given elevated d-dimer which is negative. Pt will be admitted for oxygen and monitoring - Lab Data Result diagrams: 04/09/20 00:00 04/09/20 00:00 Lab Results 04/09/20 04/09/20 04/09/20 Range/Units 00:00 00:00 00:00 WBC 8.8 (3.8-10.6) k/uL RBC 4.33 (3.80-5.40) m/uL Hgb 11.8 (11.4-16.0) gm/dL Hct 40.9 (34.0-46.0) % MCV 94.5 (80.0-100.0) fL MCH 27.3 (25.0-35.0) pg MCHC 28.9 L (31.0-37.0) g/dL RDW 21.7 H (11.5-15.5) % Plt Count 304 (150-450) k/uL Neutrophils % 88 % Lymphocytes % 7 % Monocytes % 4 % Eosinophils % 0 % Basophils % 0 % Neutrophils # 7.7 (1.3-7.7) k/uL Lymphocytes # 0.6 L (1.0-4.8) k/uL Monocytes # 0.4 (0-1.0) k/uL Eosinophils # 0.0 (0-0.7) k/uL Basophils # 0.0 (0-0.2) k/uL Hypochromasia Marked Anisocytosis Moderate Macrocytosis Slight PT 13.3 H (9.0-12.0) sec INR 1.3 H (<1.2) APTT 25.3 (22.0-30.0) sec D-Dimer 2.14 H (<0.60) mg/L FEU Sodium 136 L (137-145) mmol/L Potassium 4.7 (3.5-5.1) mmol/L Chloride 98 (98-107) mmol/L Carbon Dioxide 31 H (22-30) mmol/L Anion Gap 7 mmol/L BUN 15 (7-17) mg/dL Creatinine 0.42 L (0.52-1.04) mg/dL Est GFR (CKD-EPI)AfAm >90 (>60 ml/min/1.73 sqM) Est GFR (CKD-EPI)NonAf >90 (>60 ml/min/1.73 sqM) Glucose 69 L (74-99) mg/dL Plasma Lactic Acid [place] (0.7-2.0) mmol/L Calcium 8.6 (8.4-10.2) mg/dL Total Bilirubin 1.7 H (0.2-1.3) mg/dL AST 117 H (14-36) U/L ALT 18 (4-34) U/L Alkaline Phosphatase 753 H (38-126) U/L Troponin I (0.000-0.034) ng/mL NT-Pro-B Natriuret Pep pg/mL Total Protein 6.5 (6.3-8.2) g/dL Albumin 2.9 L (3.5-5.0) g/dL Coronavirus (PCR) (Not Detectd) Influenza Type A RNA (Not Detectd) Influenza Type B (PCR) (Not Detectd) 04/09/20 04/09/20 04/09/20 Range/Units 00:00 00:00 00:00 WBC (3.8-10.6) k/uL RBC (3.80-5.40) m/uL Hgb (11.4-16.0) gm/dL Hct (34.0-46.0) % MCV (80.0-100.0) fL MCH (25.0-35.0) pg MCHC (31.0-37.0) g/dL RDW (11.5-15.5) % Plt Count (150-450) k/uL Neutrophils % % Lymphocytes % % Monocytes % % Eosinophils % % Basophils % % Neutrophils # (1.3-7.7) k/uL Lymphocytes # (1.0-4.8) k/uL Monocytes # (0-1.0) k/uL Eosinophils # (0-0.7) k/uL Basophils # (0-0.2) k/uL Hypochromasia Anisocytosis Macrocytosis PT (9.0-12.0) sec INR (<1.2) APTT (22.0-30.0) sec D-Dimer (<0.60) mg/L FEU Sodium (137-145) mmol/L Potassium (3.5-5.1) mmol/L Chloride (98-107) mmol/L Carbon Dioxide (22-30) mmol/L Anion Gap mmol/L BUN (7-17) mg/dL Creatinine (0.52-1.04) mg/dL Est GFR (CKD-EPI)AfAm (>60 ml/min/1.73 sqM) Est GFR (CKD-EPI)NonAf (>60 ml/min/1.73 sqM) Glucose (74-99) mg/dL Plasma Lactic Acid [place] 3.1 H* (0.7-2.0) mmol/L Calcium (8.4-10.2) mg/dL Total Bilirubin (0.2-1.3) mg/dL AST (14-36) U/L ALT (4-34) U/L Alkaline Phosphatase (38-126) U/L Troponin I <0.012 (0.000-0.034) ng/mL NT-Pro-B Natriuret Pep pg/mL Total Protein (6.3-8.2) g/dL Albumin (3.5-5.0) g/dL Coronavirus (PCR) Detected A (Not Detectd) Influenza Type A RNA Not Detected (Not Detectd) Influenza Type B (PCR) Not Detected (Not Detectd) 04/09/20 Range/Units 00:00 WBC (3.8-10.6) k/uL RBC (3.80-5.40) m/uL Hgb (11.4-16.0) gm/dL Hct (34.0-46.0) % MCV (80.0-100.0) fL MCH (25.0-35.0) pg MCHC (31.0-37.0) g/dL RDW (11.5-15.5) % Plt Count (150-450) k/uL Neutrophils % % Lymphocytes % % Monocytes % % Eosinophils % % Basophils % % Neutrophils # (1.3-7.7) k/uL Lymphocytes # (1.0-4.8) k/uL Monocytes # (0-1.0) k/uL Eosinophils # (0-0.7) k/uL Basophils # (0-0.2) k/uL Hypochromasia Anisocytosis Macrocytosis PT (9.0-12.0) sec INR (<1.2) APTT (22.0-30.0) sec D-Dimer (<0.60) mg/L FEU Sodium (137-145) mmol/L Potassium (3.5-5.1) mmol/L Chloride (98-107) mmol/L Carbon Dioxide (22-30) mmol/L Anion Gap mmol/L BUN (7-17) mg/dL Creatinine (0.52-1.04) mg/dL Est GFR (CKD-EPI)AfAm (>60 ml/min/1.73 sqM) Est GFR (CKD-EPI)NonAf (>60 ml/min/1.73 sqM) Glucose (74-99) mg/dL Plasma Lactic Acid [place] (0.7-2.0) mmol/L Calcium (8.4-10.2) mg/dL Total Bilirubin (0.2-1.3) mg/dL AST (14-36) U/L ALT (4-34) U/L Alkaline Phosphatase (38-126) U/L Troponin I (0.000-0.034) ng/mL NT-Pro-B Natriuret Pep 838 pg/mL Total Protein (6.3-8.2) g/dL Albumin (3.5-5.0) g/dL Coronavirus (PCR) (Not Detectd) Influenza Type A RNA (Not Detectd) Influenza Type B (PCR) (Not Detectd) Disposition Clinical Impression: COVID-19, Acute respiratory failure with hypoxia Disposition: ADMITTED IP TO THIS HOSP Is patient prescribed a controlled substance at d/c from ED?: No Referrals: Sharon Askew MD [Primary Care Provider] - 1-2 days Time of Disposition: 02:45
--- NOTE | 2020-04-10 00:05 | XR ---
EXAMINATION TYPE: XR chest 1V DATE OF EXAM: 04/09/2020 COMPARISON: April 03, 2020 HISTORY: Cough TECHNIQUE: Single view FINDINGS: There is extensive nodular infiltrate throughout the lungs. Pulmonary vascularity is diffic ult to evaluate. I see no obvious heart failure. There is right central venous catheter with tip in t he right atrium. Heart size is normal. IMPRESSION: Numerous pulmonary masses consistent with metastatic disease unchanged.
--- NOTE | 2020-04-10 02:23 | CT ---
EXAM: CT Angiography Chest With Intravenous Contrast CLINICAL HISTORY: Dyspnea. Evaluate for pulmonary embolism. TECHNIQUE: Axial computed tomographic angiography images of the chest with intravenous contrast. CTDI is 20.17 mGy and DLP is 380.4 mGy-cm. This CT exam was performed using one or more of the following dose reduction techniques: automated exposure control, adjustment of the mA and/or kV according to patient size, and/or use of iterative reconstruction technique. MIP reconstructed images were created and reviewed. COMPARISON: 04/09/2020. FINDINGS: Pulmonary arteries: No central pulmonary emboli detected. Peripheral branch of the pulmonary arteries are grossly unremarkable but limited in evaluation. Aorta: Atherosclerotic disease of the thoracic aortic arch. No thoracic aortic aneurysm. Lungs: The airway is patent. No mass. Pleural space: Unremarkable. No significant effusion. No pneumothorax. Heart: Unremarkable. No cardiomegaly. No significant pericardial effusion. No evidence of RV dysfunction. Bones/joints: There is increased density compression fracture of the T8 vertebral body. Pathologic compression fracture related to metastatic disease is suggested. Magnetic resonance imaging of the thoracic spine will provide additional information. No dislocation. Soft tissues: Unremarkable. Lymph nodes: 3.6 x 2.4 cm subcarinal lymphadenopathy. Liver: Diffuse fatty infiltration of the liver. Adrenals: Presumed bilateral adrenal adenomas. Magnetic resonance imaging will provide additional information as deemed necessary. Kidneys and ureters: Nonspecific stranding about the perinephric spaces. Other findings: There is hypoaeration. Innumerable and extensive metastatic disease to the chest is noted bilaterally. IMPRESSION: 1. Mild hypoaeration. 2. No central or peripheral pulmonary emboli. 3. Diffuse and extensive metastatic disease to the lungs. 4. Hypoaeration. 5. Probable pathologic compression fracture of the T8 vertebral body. 6. Subcarinal lymphadenopathy.
[2020-04-10] MEDS ORDERED: NALOXONE 0.4 MG/ML 1 ML VIAL IV PRN (02:40)
[2020-04-10 02:57] LABS: Magnesium 2.3 mg/dL (1.6-2.3)
[2020-04-10 03:33] LABS: C Reactive Protein 241.7 mg/L (<10.0)
[2020-04-10] MEDS ORDERED: ACETAMINOPHEN TAB 325 MG TAB PO PRN (10:06)
[2020-04-10] MEDS ORDERED: HYDROcodone/APAP 10-325MG 1 EACH TAB PO PRN (10:10)
[2020-04-10] MEDS ORDERED: ZINC OXIDE 20% OINT 28.4 GM TUBE TOPICAL PRN (10:10)
[2020-04-10] MEDS: SODIUM CHLORIDE 0.9% 1,000 ML IV SCH ×4 (11:02→22:35)
[2020-04-10] MEDS: ALBUTEROL HFA INHALER INHALATION PRN ×2 (12:03→17:23)
[2020-04-10 12:58] LABS: Ferritin 3457.6 ng/mL (10.0-291.0)
[2020-04-10] MEDS: SODIUM CHLORIDE 5% OPHTH DROPS 15 ML BTL BOTH EYES SCH ×2 (13:01→22:27)
--- NOTE | 2020-04-10 15:20 | P.HPIM ---
History of Present Illness Patient is a pleasant 65-year-old female well-known to me from her previous hospitalization came in with complaints of generalized weakness and tiredness along with cough without any significant sputum production and nausea related to patient was tested for Covid which was positive although patient doesn't have any fever chills. Patient is being admitted for this reason. Patient last received chemotherapy 4 months ago. Patient has rectal cancer with extensive metastasis. Patient denied any significant shortness of breath chest pain. Computed tomography scan of the chest showed extensive metastatic disease. Patient is saturating 97% on 2 L of oxygen which will try to wean off. She does have lactic acidosis with elevated lactic acid of 3.8. Patient is receiving IV fluids and repeat lactic acid again. Review of Systems REVIEW OF SYSTEMS: CONSTITUTIONAL: No fever HEENT: No recent visual problems or hearing problems. Denied any sore throat. CARDIOVASCULAR: No chest pain, orthopnea, PND, no palpitations, no syncope. PULMONARY: No shortness of breath, no hemoptysis. GASTROINTESTINAL: No diarrhea, no nausea, no vomiting, no abdominal pain. NEUROLOGICAL: No headaches, no weakness, no numbness. HEMATOLOGICAL: Denies any bleeding or petechiae. GENITOURINARY: Denies any burning micturition, frequency, or urgency. MUSCULOSKELETAL/RHEUMATOLOGICAL: Denies any joint pain, swelling, or any muscle pain. ENDOCRINE: Denies any polyuria or polydipsia. The rest of the 14-point review of systems is negative. Past Medical History Past Medical History: Cancer, Eye Disorder, Hypertension, Osteoarthritis (OA) Additional Past Medical History / Comment(s): Pt recently admitted to [facility] with failure to thrive, dehydration, severe protein calorie malnutrition/chronic pain from malignancy, hypotension. Other hx: Rectal cancer with metastasis to lung/liver/kidney L eye orbit and back-pt states treatments got rid of back mets/L eye orbit inflammation, she has gone thru chemo/radiation treatments, anemia with transfusion, chronic pain, start of bilateral cataracts, occasionally incontinent of urine. History of Any Multi-Drug Resistant Organisms: None Reported Past Surgical History: Section, Cholecystectomy, Heart Catheterization, Tubal Ligation Additional Past Surgical History / Comment(s): Colonoscopy, port-pt states is nonfunctioning. Past Anesthesia/Blood Transfusion Reactions: Postoperative Nausea & Vomiting (PONV) Additional Past Anesthesia/Blood Transfusion Reaction / Comment(s): Pt states she received her first blood transfusion on 03/09/20 without reaction. She has clausterphobia. Smoking Status: Former smoker - Past Family History Mother Family Medical History: Cancer Additional Family Medical History / Comment(s): Mother had uterine cancer. Father Family Medical History: Cancer Additional Family Medical History / Comment(s): Father had penile cancer. Sister(s) Family Medical History: Vascular Disorder Additional Family Medical History / Comment(s): Sister had a aneurysm Medications and Allergies Home Medications Medication Instructions Recorded Confirmed Type lisinopriL [Zestril] 20 mg PO DAILY 02/24/19 04/10/20 History HYDROcodone/APAP 10-325MG [[place] 1 tab PO Q6H PRN 04/14/19 04/10/20 History 10-325] Sodium Chloride 5% Ophth Soln 1 drop BOTH EYES TID 03/10/20 04/10/20 History [Raad 128] Trifluridine/Tipiracil HCl See Taper PO DIRECTED 03/10/20 04/10/20 History [Lonsurf 15 mg-6.14 mg Tablet] Trifluridine/Tipiracil HCl See Taper PO DIRECTED 03/10/20 04/10/20 History [L[place]f 20 mg-8.19 mg Tablet] fentaNYL [Duragesic 50MCG/HR] 1 patch TRANSDERM Q72H 03/10/20 04/10/20 History Hydrochlorothiazide 12.5 mg PO DAILY PRN 04/03/20 04/10/20 History [hydroCHLOROthiazide] Zinc Oxide [Desitin] 1 applic TOPICAL Q2H PRN 04/03/20 04/10/20 History fentaNYL 25MCG/HR PATCH [Duragesic 1 patch TRANSDERM Q72H 04/10/20 04/10/20 History 25MCG/HR] Allergies Allergy/AdvReac Type Severity Reaction Status Date / Time bee venom protein (honey bee) Allergy Anaphylaxis Verified 04/10/20 08:00 capecitabine [From Xeloda] Allergy Unknown Verified 04/10/20 08:00 morphine AdvReac Confusion Verified 04/10/20 08:00 Physical Exam Vitals: Vital Signs Temp Pulse Resp BP Pulse Ox 04/10/20 13:21 98 18 141/100 97 04/10/20 08:43 108 H 20 121/90 04/10/20 06:05 105 H 21 143/91 98 04/10/20 01:00 113 H 20 120/70 94 L 04/09/20 23:32 104 H 12 131/87 95 04/09/20 23:07 98.7 F 110 H 16 92/64 85 L Intake and Output 04/10/20 04/10/20 04/10/20 06:59 14:59 22:59 Other: Weight 54.431 kg 54.431 kg PHYSICAL EXAMINATION: GENERAL: The patient is alert and oriented x3, not in any acute distress. Well developed, well nourished. HEENT: Pupils are round and equally reacting to light. EOMI. No scleral icterus. No conjunctival pallor. Normocephalic, atraumatic. No pharyngeal erythema. No thyromegaly. CARDIOVASCULAR: S1 and S2 present. No murmurs, rubs, or gallops. PULMONARY: Chest is clear to auscultation, no wheezing or crackles. ABDOMEN: Soft, nontender, nondistended, normoactive bowel sounds. No palpable organomegaly. MUSCULOSKELETAL: No joint swelling or deformity. EXTREMITIES: No cyanosis, clubbing, or pedal edema. NEUROLOGICAL: Gross neurological examination did not reveal any focal deficits. SKIN: No rashes. Results CBC & Chem 7: 04/09/20 00:00 04/09/20 00:00 Labs: Abnormal Lab Results - Last 24 Hours (Table) 04/09/20 04/09/20 04/09/20 Range/Units 00:00 00:00 00:00 MCHC 28.9 L (31.0-37.0) g/dL RDW 21.7 H (11.5-15.5) % Lymphocytes # 0.6 L (1.0-4.8) k/uL PT 13.3 H (9.0-12.0) sec INR 1.3 H (<1.2) D-Dimer 2.14 H (<0.60) mg/L FEU Sodium 136 L (137-145) mmol/L Carbon Dioxide 31 H (22-30) mmol/L Creatinine 0.42 L (0.52-1.04) mg/dL Glucose 69 L (74-99) mg/dL Plasma Lactic Acid [place] (0.7-2.0) mmol/L Ferritin (10.0-291.0) ng/mL Total Bilirubin 1.7 H (0.2-1.3) mg/dL AST 117 H (14-36) U/L Alkaline Phosphatase 753 H (38-126) U/L Lactate Dehydrogenase (313-618) U/L C-Reactive Protein (<10.0) mg/L Albumin 2.9 L (3.5-5.0) g/dL Procalcitonin (0.02-0.09) ng/mL Coronavirus (PCR) (Not Detectd) 04/09/20 04/09/20 04/10/20 Range/Units 00:00 00:00 01:38 MCHC (31.0-37.0) g/dL RDW (11.5-15.5) % Lymphocytes # (1.0-4.8) k/uL PT (9.0-12.0) sec INR (<1.2) D-Dimer (<0.60) mg/L FEU Sodium (137-145) mmol/L Carbon Dioxide (22-30) mmol/L Creatinine (0.52-1.04) mg/dL Glucose (74-99) mg/dL Plasma Lactic Acid [place] 3.1 H* (0.7-2.0) mmol/L Ferritin 3457.6 H (10.0-291.0) ng/mL Total Bilirubin (0.2-1.3) mg/dL AST (14-36) U/L Alkaline Phosphatase (38-126) U/L Lactate Dehydrogenase 3879 H (313-618) U/L C-Reactive Protein 241.7 H (<10.0) mg/L Albumin (3.5-5.0) g/dL Procalcitonin (0.02-0.09) ng/mL Coronavirus (PCR) Detected A (Not Detectd) 04/10/20 04/10/20 04/10/20 Range/Units 01:38 03:11 06:20 MCHC (31.0-37.0) g/dL RDW (11.5-15.5) % Lymphocytes # (1.0-4.8) k/uL PT (9.0-12.0) sec INR (<1.2) D-Dimer (<0.60) mg/L FEU Sodium (137-145) mmol/L Carbon Dioxide (22-30) mmol/L Creatinine (0.52-1.04) mg/dL Glucose (74-99) mg/dL Plasma Lactic Acid [place] 2.9 H* 3.0 H* (0.7-2.0) mmol/L Ferritin (10.0-291.0) ng/mL Total Bilirubin (0.2-1.3) mg/dL AST (14-36) U/L Alkaline Phosphatase (38-126) U/L Lactate Dehydrogenase (313-618) U/L C-Reactive Protein (<10.0) mg/L Albumin (3.5-5.0) g/dL Procalcitonin 0.51 H (0.02-0.09) ng/mL Coronavirus (PCR) (Not Detectd) 04/10/20 Range/Units 11:08 MCHC (31.0-37.0) g/dL RDW (11.5-15.5) % Lymphocytes # (1.0-4.8) k/uL PT (9.0-12.0) sec INR (<1.2) D-Dimer (<0.60) mg/L FEU Sodium (137-145) mmol/L Carbon Dioxide (22-30) mmol/L Creatinine (0.52-1.04) mg/dL Glucose (74-99) mg/dL Plasma Lactic Acid [place] 3.8 H* (0.7-2.0) mmol/L Ferritin (10.0-291.0) ng/mL Total Bilirubin (0.2-1.3) mg/dL AST (14-36) U/L Alkaline Phosphatase (38-126) U/L Lactate Dehydrogenase (313-618) U/L C-Reactive Protein (<10.0) mg/L Albumin (3.5-5.0) g/dL Procalcitonin (0.02-0.09) ng/mL Coronavirus (PCR) (Not Detectd) Thrombosis Risk Factor Assmnt - Choose All That Apply Any of the Below Risk Factors Present?: Yes Each Factor Represents 1 point: Serious lung disease incl. pneumonia (< 1month) Other Risk Factors: Yes Each Risk Factor Represents 2 Points: Age 61-74 years, Malignancy Other congenital or acquired thrombophilia - If yes, enter type in comment: No Thrombosis Risk Factor Assessment Total Risk Factor Score: 5 Thrombosis Risk Factor Assessment Level: High Risk Assessment and Plan Plan: -Possible Covid 19 infection: Patient will be started on Decadron infectious disease will be consulted, patient is on oxygen although comfortable at this time try to wean off oxygen if doing well patient will be discharged tomorrow. -History of for colorectal cancer extensive metastatic disease. -Hypertension -Generalized fatigue can be secondary to cancer or Covid 19. -DVT prophylaxis with subcutaneous Lovenox
[2020-04-10] MEDS ORDERED: amLODIPine 10 MG TAB PO STA (16:31)
[2020-04-10] MEDS ORDERED: ENOXAPARIN 60 MG/0.6 ML SYRINGE SQ SCH (21:00)
[2020-04-10] MEDS: FAMOTIDINE 20 MG TAB PO SCH (22:27)
[2020-04-10 23:18] VITALS: RESP 20
[2020-04-10] MEDS ORDERED: REMDESIVIR (EUA) 200 MG in SODIUM CHLORIDE 0.9% 250 ML IV ONE (23:30)
[2020-04-11] MEDS: SODIUM CHLORIDE 0.9% 1,000 ML IV SCH (05:00)
[2020-04-11 05:45] LABS: Anisocytosis Moderate; HCT 34.5 % (34.0-46.0); HGB 10.7 gm/dL (11.4-16.0); Hypochromasia Marked; MCH 29.4 pg (25.0-35.0); MCV 94.8 fL (80.0-100.0); Macrocytosis Slight; RBC 3.64 m/uL (3.80-5.40)
[2020-04-11 06:14] LABS: Band Neutrophils % 2 %; Lymphocytes # (M) 0.19 k/uL (1.0-4.8); Monocytes # (M) 0.75 k/uL (0-1.0); Neutrophils % (M) 89 %; Nucleated Red Blood Cells 1 /100 WBC (0-0); Polychromasia Present; Total Cells Counted 200; WBC 9.4 k/uL (3.8-10.6)
[2020-04-11 06:15] LABS: Platelet Count 132 k/uL (150-450)
[2020-04-11 06:16] VITALS: BP 120/80; PULSE 74; TEMP 97.6
[2020-04-11] MEDS: ALBUTEROL HFA INHALER INHALATION PRN ×2 (07:34→11:21)
[2020-04-11] MEDS ORDERED: lisinopriL 20 MG TAB PO SCH (09:00)
[2020-04-11] MEDS ORDERED: dexAMETHasone 2 MG TAB PO SCH (09:00)
[2020-04-11] MEDS ORDERED: ENOXAPARIN 40 MG/0.4 ML SYRINGE SQ SCH (09:00)
[2020-04-11 09:26] VITALS: BMI 23.4
[2020-04-11 10:00] LABS: African American GFR (CKD) 141.2 (60.0-200.0); Anion Gap 17.3 mmol/L (4.00-12.00); BUN/Creat Ratio 46.67 Ratio (12.00-20.00); Calcium 7.9 mg/dL (8.7-10.3); Carbon Dioxide 23.7 mmol/L (21.6-31.8); Non-African American GFR(CKD) 121.9 (60.0-200.0); Potassium 3.5 mmol/L (3.5-5.5)
[2020-04-11] MEDS: FAMOTIDINE 20 MG TAB PO SCH (10:23)
[2020-04-11] MEDS: SODIUM CHLORIDE 5% OPHTH DROPS 15 ML BTL BOTH EYES SCH (10:25)
--- NOTE | 2020-04-11 11:58 | CONS ---
CONSULTATION DATE OF SERVICE: 04/10/2020 REASON FOR CONSULTATION: COVID-19 infection. HISTORY OF PRESENT ILLNESS: The patient is a 65-year-old female with a past medical history significant for metastatic rectal cancer with METS to the liver and the lung which has been about 4 months. The patient presented to hospital with chief complaints of not feeling well. The patient said this has been going on for the last 3 days. The patient also been complaining of cough which is dry in nature, mild to moderate in intensity, has felt nauseated but no vomiting. The patient denies having any abdominal pain or any diarrhea. No chest pain or high-grade fever. With these symptoms, the patient was evaluated by the ER physician. On arrival to the ER, the patient has been afebrile. The patient was noticed to be hypoxic, as the patient was 85% on room air on presentation to the hospital. Subsequently, the patient is on 3 L nasal cannula, currently saturating around 93%. The patient is hemodynamically stable, not on pressor support. The patient also have elevated lactic acid. The patient did have a normal white count with no lymphopenia. He did have elevated D-dimer, elevated lactic acid and current liver enzymes and elevated LDH and CRP. COVID test came back positive. Influenza was negative. The patient did have a chest x-ray, numerous pulmonary masses consistent with metastatic disease unchanged. The patient also have a CT angiogram of the chest with no pulmonary emboli. Noted to have diffuse extensive metastatic disease to the lungs. The patient was started on Lovenox, dexamethasone, zinc oxide. Infectious Disease was consulted for further management. REVIEW OF SYSTEMS: Positive points have been mentioned in HPI. Rest of the systems are negative. PAST MEDICAL HISTORY: Significant for metastatic rectal cancer, hypertension, osteoarthritis. PAST SURGICAL HISTORY: , cholecystectomy, heart catheterization, tubal ligation. SOCIAL HISTORY: Remote smoking, no drinking or drug use. FAMILY HISTORY: Mother history of colon cancer. Father history of benign cancer. ALLERGIES: To MORPHINE, BEE VENOM. MEDICATION: Include the patient is currently on zinc and Zestril, Tylenol, [place], dexamethasone, Lovenox. PHYSICAL EXAMINATION: Her blood pressure is 96/74 with a pulse of 83, temperature 98.7. She is 93% on 3 L nasal cannula. General description is a middle-aged female, lying in bed in no distress with no tachypnea or accessory muscle of respiration use. HEENT: Examination shows no pallor or scleral icterus. Oral mucosa membrane is dry, no pharyngeal erythema or thrush. NECK: Trachea central, no thyromegaly. LUNGS: Unlabored breathing, decreased breath sounds at the base, no wheeze. HEART: S1, S2. Regular rate and rhythm. ABDOMEN: Soft, no tenderness, no guarding or rigidity. EXTREMITIES: No edema of the feet. SKIN: Examination no rashes, no mass palpable. NEUROLOGICAL: Patient is awake, alert, oriented, mood and affect normal. LABS: Hemoglobin 11.8, white count 8.8 with left shift, did have S2 wound 2.14, creatinine 0.42. Liver enzymes elevated, LDH of 30 and 79. CRP 241.7. [place] PCR positive. CT chest report mentioned. DIAGNOSTIC IMPRESSION: Patient admitted to the hospital with generalized not feeling well, cough, hypoxemia in this patient did have a lymphopenia, elevated liver enzymes and significant elevated LDH and CRP, likely acute COVID-19. pneumonia. This patient unfortunately did have low respiratory reserve because of her metastatic rectal cancer. PLAN: 1. We will start the patient on Omnicef 2 mg day 1 followed by 2 mg daily for 5 days. 2. Continue with Lovenox. 3. sulfate. 4. Interval aspiration and respiratory support. 5. Will follow on clinical condition and further adjust medication if needed. Thank you for this consultation. Will follow this patient along with you. MMODL / IJN: [id number] /
--- NOTE | 2020-04-11 13:42 | P.DS ---
Providers Date of admission: 04/10/20 02:48 Attending physician: Marcelino Combs Consults: 04/10/20 10:06 Consult Physician Stat Consulting Provider: Hanane Giraldo Consult Reason/Comments: COVID Do you want consulting provider notified?: Yes Primary care physician: Jamilah Barrera [facility] Course: 65-year-old female well-known to me from her previous hospitalization came in with complaints of generalized weakness and tiredness along with cough without any significant sputum production and nausea related to patient was tested for Covid which was positive although patient doesn't have any fever chills. Patient is being admitted for this reason. Patient last received chemotherapy 4 months ago. Patient has rectal cancer with extensive metastasis. Patient denied any significant shortness of breath chest pain. Computed tomography scan of the chest showed extensive metastatic disease. Patient is saturating 97% on 2 L of oxygen which will try to wean off. She does have lactic acidosis with elevated lactic acid of 3.8. Patient is receiving IV fluids and repeat lactic acid again. 04/11/2020 Patient is clinically doing well without oxygen wanted to go home patient will be discharged on Decadron along with Pepcid. PHYSICAL EXAMINATION: GENERAL: The patient is alert and oriented x3, not in any acute distress. Well developed, well nourished. HEENT: Pupils are round and equally reacting to light. EOMI. No scleral icterus. No conjunctival pallor. Normocephalic, atraumatic. No pharyngeal erythema. No thyromegaly. CARDIOVASCULAR: S1 and S2 present. No murmurs, rubs, or gallops. PULMONARY: Chest is clear to auscultation, no wheezing or crackles. ABDOMEN: Soft, nontender, nondistended, normoactive bowel sounds. No palpable organomegaly. MUSCULOSKELETAL: No joint swelling or deformity. EXTREMITIES: No cyanosis, clubbing, or pedal edema. NEUROLOGICAL: Gross neurological examination did not reveal any focal deficits. SKIN: No rashes. Note: Because of COVID 19 isolation, some of the history and physical exam findings are indirect and obtained from nursing staff, and other physician examinations to avoid unnecessary contact with the patient. Assessment and Plan Plan: -Possible Covid 19 infection: Patient is on room air clinically doing well will be discharged on Decadron for 6 more days along with Pepcid -History of for colorectal cancer extensive metastatic disease. -Hypertension -Generalized fatigue can be secondary to cancer or Covid 19. Plan - Discharge Summary Discharge Rx Participant: No New Discharge Prescriptions: New dexAMETHasone [Hexadrol] 6 mg PO DAILY #6 tab Famotidine [Pepcid] 20 mg PO BID #14 tab Continue lisinopriL [Zestril] 20 mg PO DAILY HYDROcodone/APAP 10-325MG [[place] 10-325] 1 tab PO Q6H PRN PRN Reason: Pain Trifluridine/Tipiracil HCl [[place] 20 mg-8.19 mg Tablet] See Taper PO DIRECTED Trifluridine/Tipiracil HCl [[place] 15 mg-6.14 mg Tablet] See Taper PO DIRECTED fentaNYL [Duragesic 50MCG/HR] 1 patch TRANSDERM Q72H Sodium Chloride 5% Ophth Soln [Raad 128] 1 drop BOTH EYES TID Zinc Oxide [Desitin] 1 applic TOPICAL Q2H PRN PRN Reason: BED SORE fentaNYL 25MCG/HR PATCH [Duragesic 25MCG/HR] 1 patch TRANSDERM Q72H Discontinued Hydrochlorothiazide [hydroCHLOROthiazide] 12.5 mg PO DAILY PRN PRN Reason: Edema Discharge Medication List lisinopriL [Zestril] 20 mg PO DAILY 02/24/19 [History] HYDROcodone/APAP 10-325MG [[place] 10-325] 1 tab PO Q6H PRN 04/14/19 [History] Sodium Chloride 5% Ophth Soln [Raad 128] 1 drop BOTH EYES TID 03/10/20 [History] Trifluridine/Tipiracil HCl [[place] 15 mg-6.14 mg Tablet] See Taper PO DIRECTED 03/10/20 [History] Trifluridine/Tipiracil HCl [[place] 20 mg-8.19 mg Tablet] See Taper PO DIRECTED 03/10/20 [History] fentaNYL [Duragesic 50MCG/HR] 1 patch TRANSDERM Q72H 03/10/20 [History] Zinc Oxide [Desitin] 1 applic TOPICAL Q2H PRN 04/03/20 [History] fentaNYL 25MCG/HR PATCH [Duragesic 25MCG/HR] 1 patch TRANSDERM Q72H 04/10/20 [History] Famotidine [Pepcid] 20 mg PO BID #14 tab 04/11/20 [Rx] dexAMETHasone [Hexadrol] 6 mg PO DAILY #6 tab 04/11/20 [Rx] Follow up Appointment(s)/Referral(s): Sharon Askew MD [Primary Care Provider] - 3 Days (patient to call office and schedule own appt) Patient Instructions/Handouts: Famotidine (By mouth), Dexamethasone (By mouth), Viral Pneumonia (DC) Discharge Disposition: HOME SELF-CARE
--- NOTE | 2020-04-11 15:58 | PN ---
PROGRESS NOTE DATE OF SERVICE: 04/11/2020 REASON FOR FOLLOWUP: Acute COVID-19 infection. INTERVAL HISTORY: Patient was seen on rounds early this afternoon. The patient has been afebrile. The patient mentioned she was feeling much better and wants to go home. Patient denies having any chest pain or cough, no vomiting, no diarrhea. PHYSICAL EXAMINATION: Blood pressure 120/80 with a pulse of 74, temperature is 97.3, she is 95% on 3 L nasal cannula. General description is a middle-aged female up in the bed in no distress. RESPIRATORY SYSTEM: Unlabored breathing, decreased breath sounds at the base. HEART: S1, S2. Regular rate and rhythm. ABDOMEN: Soft, no tenderness. LABS: Hemoglobin is 10, white count of 9.4, creatinine 0.3, lactic acid is 2.0. DIAGNOSTIC IMPRESSION AND PLAN: Patient with acute COVID-19 pneumonia in this patient who did have metastatic rectal cancer. Patient has shown overall improvement in the initial therapy; however, she is insisting on going home, note the risk of worsening infection and possible readmission. MMODL / IJN: [id number] /
[2020-04-11] MEDS ORDERED: REMDESIVIR (EUA) 100 MG in SODIUM CHLORIDE 0.9% 250 ML IV SCH (21:00)
== END 2020-04-11 13:14 | disposition home or self-care (01) | DRG 177 ==
LOC: EC 22:42 → 4SSUR 04-10 02:48 → 6NMEDSUR 04-10 18:36
PROVIDERS: ADMIT Hospitalist; ATTEND Hospitalist
PROC: XW033E5 Introduction of Remdesivir Anti-infective into Peripheral Vein, Percutaneous Approach, New Technology Group 5 (ICD-10-PCS; principal; 2020-04-10)
DX: U07.1 COVID-19 (principal); J12.89 Other viral pneumonia; J96.01 Acute respiratory failure with hypoxia; E43 Unspecified severe protein-calorie malnutrition; C79.51 Secondary malignant neoplasm of bone; C79.00 Secondary malignant neoplasm of unspecified kidney and renal pelvis; C20 Malignant neoplasm of rectum; C78.00 Secondary malignant neoplasm of unspecified lung; C78.7 Secondary malignant neoplasm of liver and intrahepatic bile duct; E87.2 Acidosis; I95.9 Hypotension, unspecified; R62.7 Adult failure to thrive; D63.0 Anemia in neoplastic disease; Z68.23 Body mass index [BMI] 23.0-23.9, adult; G89.3 Neoplasm related pain (acute) (chronic); D72.810 Lymphocytopenia; I10 Essential (primary) hypertension; M19.90 Unspecified osteoarthritis, unspecified site; R32 Unspecified urinary incontinence; H26.9 Unspecified cataract; Z79.891 Long term (current) use of opiate analgesic; Z79.899 Other long term (current) drug therapy; Z87.891 Personal history of nicotine dependence; Z98.891 History of uterine scar from previous surgery; Z90.49 Acquired absence of other specified parts of digestive tract; Z98.890 Other specified postprocedural states; Z87.19 Personal history of other diseases of the digestive system; Z98.51 Tubal ligation status; Z92.21 Personal history of antineoplastic chemotherapy; Z92.3 Personal history of irradiation; Z71.3 Dietary counseling and surveillance; Z88.5 Allergy status to narcotic agent; Z88.8 Allergy status to other drugs, medicaments and biological substances; Z91.030 Bee allergy status; Z80.49 Family history of malignant neoplasm of other genital organs; Z82.49 Family history of ischemic heart disease and other diseases of the circulatory system
CPT/HCPCS: 36415; 71045; 71275; 80048; 80053; 82728; 83605; 83615; 83735; 83880; 84145; 84484; 85025; 85379; 85610; 85730; 86140; 87502; 87635; 93005; 94640; 99285

== ENCOUNTER 2020-04-12 13:52 | Inpatient (IN) | payer MEDICARE, OTHER ==
--- NOTE | 2020-04-12 14:08 | ED ---
SOB HPI - General Chief Complaint: Shortness of Breath Stated Complaint: LULA Time Seen by Provider: 04/12/20 13:52 Source: patient, EMS, RN notes reviewed, old records reviewed Mode of arrival: EMS - History of Present Illness Initial Comments: this is a 65-year-old female history of metastatic rectal cancer that successively metastasized including to the lung was brought in by EMS today because of decreased level of activity decrease responsive she also has a cough. She was diagnosed with Covid 19 of this month. She was found have a pulse oximetry of 68% room air by fire rescue and by someone with a home monitor.no chest pain no focal deficits. Patient did have a pulse ox in the 90s after 10 L of oxygen applied. MD Complaint: shortness of breath, cough - Related Data Home Medications Medication Instructions Recorded Confirmed lisinopriL [Zestril] 20 mg PO DAILY 02/24/19 04/12/20 HYDROcodone/APAP 10-325MG [[place] 1 tab PO Q6H PRN 04/14/19 04/12/20 10-325] Sodium Chloride 5% Ophth Soln 1 drop BOTH EYES TID 03/10/20 04/12/20 [Raad 128] Trifluridine/Tipiracil HCl See Taper PO DIRECTED 03/10/20 04/12/20 [[place] 15 mg-6.14 mg Tablet] Trifluridine/Tipiracil HCl See Taper PO DIRECTED 03/10/20 04/12/20 [[place] 20 mg-8.19 mg Tablet] fentaNYL [Duragesic 50MCG/HR] 1 patch TRANSDERM Q72H 03/10/20 04/12/20 Zinc Oxide [Desitin] 1 applic TOPICAL Q2H PRN 04/03/20 04/12/20 fentaNYL 25MCG/HR PATCH [Duragesic 1 patch TRANSDERM Q72H 04/10/20 04/12/20 25MCG/HR] Previous Rx's Medication Instructions Recorded Famotidine [Pepcid] 20 mg PO BID #14 tab 04/11/20 dexAMETHasone [Hexadrol] 6 mg PO DAILY #6 tab 04/11/20 Allergies Allergy/AdvReac Type Severity Reaction Status Date / Time bee venom protein (honey bee) Allergy Anaphylaxis Verified 04/12/20 14:49 capecitabine [From Xeloda] Allergy Unknown Verified 04/12/20 14:49 morphine AdvReac Confusion Verified 04/12/20 14:49 Review of Systems ROS Statement: Those systems with pertinent positive or pertinent negative responses have been documented in the HPI. ROS Other: All systems not noted in ROS Statement are negative. Past Medical History Past Medical History: Cancer, Eye Disorder, Hypertension, Osteoarthritis (OA) Additional Past Medical History / Comment(s): Pt recently admitted to [facility] with failure to thrive, dehydration, severe protein calorie malnutrition/chronic pain from malignancy, hypotension. Other hx: Rectal cancer with metastasis to lung/liver/kidney L eye orbit and back-pt states treatments got rid of back mets/L eye orbit inflammation, she has gone thru chemo/radiation treatments, anemia with transfusion, chronic pain, start of bilateral cataracts, occasionally incontinent of urine. History of Any Multi-Drug Resistant Organisms: None Reported Past Surgical History: Section, Cholecystectomy, Heart Catheterization, Tubal Ligation Additional Past Surgical History / Comment(s): Colonoscopy, port-pt states is nonfunctioning. Past Anesthesia/Blood Transfusion Reactions: Postoperative Nausea & Vomiting (PONV) Additional Past Anesthesia/Blood Transfusion Reaction / Comment(s): Pt states she received her first blood transfusion on 03/09/20 without reaction. She has clausterphobia. Past Psychological History: No Psychological Hx Reported Smoking Status: Former smoker - Past Family History Mother Family Medical History: Cancer Additional Family Medical History / Comment(s): Mother had uterine cancer. Father Family Medical History: Cancer Additional Family Medical History / Comment(s): Father had penile cancer. Sister(s) Family Medical History: Vascular Disorder Additional Family Medical History / Comment(s): Sister had a aneurysm General Exam - General Exam Comments Initial Comments: physical well-developed asthenic appearing female who is awake alert but lethargic. Positive wet sounding cough General appearance: alert, in no apparent distress Head exam: Present: atraumatic, normocephalic, normal inspection Eye exam: Present: normal appearance, PERRL, EOMI. Absent: scleral icterus, conjunctival injection, periorbital swelling ENT exam: Present: mucous membranes dry Neck exam: Present: normal inspection, full ROM, other. Absent: tenderness, meningismus, lymphadenopathy Respiratory exam: Present: decreased breath sounds (stridor JVD or bruits), other (scattered rhonchi). Absent: respiratory distress, wheezes, rales, rhonchi, stridor Cardiovascular Exam: Present: regular rate, normal rhythm, normal heart sounds. Absent: systolic murmur, diastolic murmur, rubs, gallop, clicks GI/Abdominal exam: Present: soft, normal bowel sounds. Absent: distended, tenderness, guarding, rebound, rigid Extremities exam: Present: full ROM, normal capillary refill, pedal edema. Absent: tenderness, joint swelling, calf tenderness Back exam: Present: normal inspection Neurological exam: Present: alert, oriented X3, CN II-XII intact Psychiatric exam: Present: normal affect, normal mood Skin exam: Present: warm, dry, intact, normal color. Absent: rash Course Vital Signs 04/12/20 04/12/20 13:57 15:48 Temperature 97.6 F Pulse Rate 83 88 Respiratory 20 16 Rate Blood Pressure 140/104 141/101 O2 Sat by Pulse 93 L 98 Oximetry - Reevaluation(s) Reevaluation #1: 04/12/20 16:13 the lactic acid likely secondary to dehydration Medical Decision Making - Lab Data Result diagrams: 04/12/20 14:30 04/12/20 14:30 Lab Results 04/12/20 04/12/20 04/12/20 Range/Units 14:30 14:30 14:30 WBC 13.3 H (3.8-10.6) k/uL RBC 4.11 (3.80-5.40) m/uL Hgb 11.6 (11.4-16.0) gm/dL Hct 39.9 (34.0-46.0) % MCV 97.0 (80.0-100.0) fL MCH 28.2 (25.0-35.0) pg MCHC 29.1 L (31.0-37.0) g/dL RDW 22.5 H (11.5-15.5) % Plt Count 155 (150-450) k/uL MPV 9.1 Neutrophils % 89 % Lymphocytes % 5 % Monocytes % 5 % Eosinophils % 0 % Basophils % 0 % Neutrophils # 11.9 H (1.3-7.7) k/uL Lymphocytes # 0.7 L (1.0-4.8) k/uL Monocytes # 0.6 (0-1.0) k/uL Eosinophils # 0.0 (0-0.7) k/uL Basophils # 0.0 (0-0.2) k/uL Hypochromasia Marked Anisocytosis Moderate Macrocytosis Moderate PT 19.5 H (9.0-12.0) sec INR 2.0 H (<1.2) APTT 24.6 (22.0-30.0) sec Sodium 141 (137-145) mmol/L Potassium 4.1 (3.5-5.1) mmol/L Chloride 102 (98-107) mmol/L Carbon Dioxide 28 (22-30) mmol/L Anion Gap 11 mmol/L BUN 28 H (7-17) mg/dL Creatinine 0.57 (0.52-1.04) mg/dL Est GFR (CKD-EPI)AfAm >90 (>60 ml/min/1.73 sqM) Est GFR (CKD-EPI)NonAf >90 (>60 ml/min/1.73 sqM) Glucose 78 (74-99) mg/dL Plasma Lactic Acid Blaise (0.7-2.0) mmol/L Calcium 8.4 (8.4-10.2) mg/dL Magnesium 2.4 H (1.6-2.3) mg/dL Total Bilirubin 2.3 H (0.2-1.3) mg/dL AST 188 H (14-36) U/L ALT 22 (4-34) U/L Alkaline Phosphatase 785 H (38-126) U/L Creatine Kinase 138 H (30-135) U/L Troponin I (0.000-0.034) ng/mL NT-Pro-B Natriuret Pep pg/mL Total Protein 6.1 L (6.3-8.2) g/dL Albumin 2.8 L (3.5-5.0) g/dL 04/12/20 04/12/20 04/12/20 Range/Units 14:30 14:30 14:40 WBC (3.8-10.6) k/uL RBC (3.80-5.40) m/uL Hgb (11.4-16.0) gm/dL Hct (34.0-46.0) % MCV (80.0-100.0) fL MCH (25.0-35.0) pg MCHC (31.0-37.0) g/dL RDW (11.5-15.5) % Plt Count (150-450) k/uL MPV Neutrophils % % Lymphocytes % % Monocytes % % Eosinophils % % Basophils % % Neutrophils # (1.3-7.7) k/uL Lymphocytes # (1.0-4.8) k/uL Monocytes # (0-1.0) k/uL Eosinophils # (0-0.7) k/uL Basophils # (0-0.2) k/uL Hypochromasia Anisocytosis Macrocytosis PT (9.0-12.0) sec INR (<1.2) APTT (22.0-30.0) sec Sodium (137-145) mmol/L Potassium (3.5-5.1) mmol/L Chloride (98-107) mmol/L Carbon Dioxide (22-30) mmol/L Anion Gap mmol/L BUN (7-17) mg/dL Creatinine (0.52-1.04) mg/dL Est GFR (CKD-EPI)AfAm (>60 ml/min/1.73 sqM) Est GFR (CKD-EPI)NonAf (>60 ml/min/1.73 sqM) Glucose (74-99) mg/dL Plasma Lactic Acid Blaise 2.8 H* (0.7-2.0) mmol/L Calcium (8.4-10.2) mg/dL Magnesium (1.6-2.3) mg/dL Total Bilirubin (0.2-1.3) mg/dL AST (14-36) U/L ALT (4-34) U/L Alkaline Phosphatase (38-126) U/L Creatine Kinase (30-135) U/L Troponin I 0.020 (0.000-0.034) ng/mL NT-Pro-B Natriuret Pep 1430 pg/mL Total Protein (6.3-8.2) g/dL Albumin (3.5-5.0) g/dL - EKG Data -: EKG Interpreted by Me EKG shows normal: sinus rhythm EKG Comments: sinus tachycardia with PVCs rate 104 WI interval 126 QRS 66 QT since QTC 346/454poor R-wave progression - Radiology Data Radiology results: report reviewed (AJ review and diffusemetastatic disease with possible underlying pneumonia.), image reviewed Disposition Clinical Impression: COVID-19, Rectal cancer metastatic to bone, Pneumonia, Dehydration, Failure to thrive, Lactic acidosis Disposition: ADMITTED IP TO THIS HOSP Condition: Fair Referrals: Sharon Askew MD [Primary Care Provider] - 1-2 days
[2020-04-12 15:01] LABS: Partial Thromboplastin Time 24.6 sec (22.0-30.0); Prothrombin Time 19.5 sec (9.0-12.0)
[2020-04-12 15:20] LABS: Anisocytosis Moderate; Basophils % (A) 0 %; Eosinophils % (A) 0 %; HCT 39.9 % (34.0-46.0); HGB 11.6 gm/dL (11.4-16.0); Hypochromasia Marked; Lymphocytes # (A) 0.7 k/uL (1.0-4.8); Lymphocytes % (A) 5 %; MCH 28.2 pg (25.0-35.0); MCHC 29.1 g/dL (31.0-37.0); Macrocytosis Moderate; Mean Platelet Volume 9.1; Monocytes # (A) 0.6 k/uL (0-1.0); Monocytes % (A) 5 %; Neutrophils # (A) 11.9 k/uL (1.3-7.7); Neutrophils % (A) 89 %; Platelet Count 155 k/uL (150-450); RBC 4.11 m/uL (3.80-5.40); RDW 22.5 % (11.5-15.5); WBC 13.3 k/uL (3.8-10.6)
[2020-04-12 15:23] LABS: ALT 22 U/L (4-34); AST 188 U/L (14-36); African American GFR (CKD) >90 (>60 ml/min/1.73 sqM); Albumin 2.8 g/dL (3.5-5.0); Alkaline Phosphatase 785 U/L (38-126); Anion Gap 11 mmol/L; Blood Urea Nitrogen 28 mg/dL (7-17); Calcium 8.4 mg/dL (8.4-10.2); Carbon Dioxide 28 mmol/L (22-30); Chloride 102 mmol/L (98-107); Creatine Kinase 138 U/L (30-135); Glucose 78 mg/dL (74-99); Magnesium 2.4 mg/dL (1.6-2.3); Non-African American GFR(CKD) >90 (>60 ml/min/1.73 sqM); Sodium 141 mmol/L (137-145); Total Bilirubin 2.3 mg/dL (0.2-1.3); Total Protein 6.1 g/dL (6.3-8.2)
[2020-04-12 15:24] LABS: Potassium 4.1 mmol/L (3.5-5.1)
--- NOTE | 2020-04-12 15:30 | XR ---
EXAMINATION TYPE: XR chest 2V DATE OF EXAM: 04/12/2020 COMPARISON: 04/09/2020 HISTORY: 65-year-old female difficulty breathing, cold with positive, low oxygen saturation, shortnes s of breath. TECHNIQUE: AP and lateral views FINDINGS: Right anterior chest wall injection port with catheter tip in the right atrium. Worsening bilateral n odular, patchy, and confluent opacity. The heart margins are partially obscured due to the worsening opacities. IMPRESSION: Worsening patchy and confluent bilateral opacities on a background of diffuse pulmonary metastases. S uperimposed pneumonia or atypical infections should be considered.
[2020-04-12] MEDS ORDERED: SODIUM CHLORIDE 0.9% 1,000 ML IV STA (15:59)
[2020-04-12] MEDS ORDERED: PIPERACILLIN-TAZOBACTAM 3.375 GM in SODIUM CHLORIDE 0.9% 100 ML IVPB STA (15:59)
[2020-04-12] MEDS ORDERED: PNEUMONIA PROTOCOL UTILIZED 1 EACH MISC PO PRN (16:15)
[2020-04-12] MEDS ORDERED: HYDROcodone/APAP 10-325MG 1 EACH TAB PO PRN (22:56)
--- NOTE | 2020-04-12 23:39 | CT ---
EXAMINATION TYPE: CT brain wo con DATE OF EXAM: 04/12/2020 COMPARISON: 04/14/2019 HISTORY: AMS CT DLP: 1076.40 mGycm Automated exposure control for dose reduction was used. There is cerebral cortical atrophy. There is no mass effect nor midline shift. There is no sign of in tracranial hemorrhage. There is large area of osteoblastic and osteolytic change involving the left frontal bone and anterio r left temporal bone that measures 9 cm and extends to the lateral aspect of the left bony orbit. The re is some encroachment on the left orbit and medial displacement of the left globe. There is some du ral enhancement at the area of osteoblastic changes. The skull base is intact. IMPRESSION: No acute intracranial abnormality. Large area of osteoblastic change with expansion into the left orbit consistent with metastatic disea se that is a change compared to old CT scan. There is also some expansion into the dura over the left lateral frontal lobe convexity.
[2020-04-13] MEDS ORDERED: ACETAMINOPHEN SUPPOSITORY 650 MG SUPP RECTAL PRN
[2020-04-13] MEDS ORDERED: ACETAMINOPHEN TAB 325 MG TAB PO PRN
[2020-04-13] MEDS ORDERED: HALOPERIDOL LACTATE 5 MG/ML 1 ML VIAL IVP ONE (06:30)
[2020-04-13] MEDS: FAMOTIDINE 20 MG TAB PO SCH ×2 (07:58→20:24)
--- NOTE | 2020-04-13 07:58 | XR ---
EXAMINATION TYPE: XR chest 1V portable DATE OF EXAM: 04/13/2020 COMPARISON: Prior chest x-ray 04/12/2020 HISTORY: Pneumonia TECHNIQUE: Single frontal view of the chest is obtained. FINDINGS: Bilateral areas of patchy airspace disease with areas of nodularity are present within the lungs. Lung volumes are low. No evident pneumothorax or pleural effusion. Right subclavian central v enous catheter is stable. Heart is unchanged. No evident pneumothorax or pleural effusion. IMPRESSION: Correlate for metastatic disease, pneumonia. Follow-up recommended.
[2020-04-13] MEDS ORDERED: ZINC OXIDE 20% OINT 28.4 GM TUBE TOPICAL PRN (08:15)
[2020-04-13] MEDS ORDERED: lisinopriL 10 MG TAB PO SCH (09:00)
[2020-04-13] MEDS ORDERED: dexAMETHasone 2 MG TAB PO SCH (09:00)
[2020-04-13] MEDS ORDERED: lisinopriL 20 MG TAB PO SCH (09:00)
--- NOTE | 2020-04-13 10:06 | P.HPIM ---
History of Present Illness 65-year-old the present. With known history of rectal cancer metastatic disease in the past was recently discharged from the hospital after she was admitted for Covid 19. Patient was saturating well when she was discharged yesterday patient is found to have very low pulse oximetry with the also and saturations of 68% was brought to the hospital was put on oxygen patient is presently on 4 L of oxygen. Patient was started on Decadron. Infectious disease will be consulted. Patient apparently was confused yesterday because of which her fentanyl was held. Patient has been on fentanyl for long time. CT of the head was done w [facility] showed metastatic disease to the brain. Oncology was consulted. Chest x- ray showing pulmonary metastatic disease which was seen during her previous hospitalization and the CT as well. Review of Systems REVIEW OF SYSTEMS: CONSTITUTIONAL: No fever, no malaise, no fatigue. HEENT: No recent visual problems or hearing problems. Denied any sore throat. CARDIOVASCULAR: No chest pain, orthopnea, PND, no palpitations, no syncope. PULMONARY: no cough, no hemoptysis. GASTROINTESTINAL: No diarrhea, no nausea, no vomiting, no abdominal pain. NEUROLOGICAL: No headaches, no weakness, no numbness. HEMATOLOGICAL: Denies any bleeding or petechiae. GENITOURINARY: Denies any burning micturition, frequency, or urgency. MUSCULOSKELETAL/RHEUMATOLOGICAL: Denies any joint pain, swelling, or any muscle pain. ENDOCRINE: Denies any polyuria or polydipsia. The rest of the 14-point review of systems is negative. Past Medical History Past Medical History: Cancer, Eye Disorder, Hypertension, Osteoarthritis (OA) Additional Past Medical History / Comment(s): Pt recently admitted to [facility] with failure to thrive, dehydration, severe protein calorie malnutrition/chronic pain from malignancy, hypotension. Other hx: Rectal cancer with metastasis to lung/liver/kidney L eye orbit and back-pt states treatments got rid of back mets/L eye orbit inflammation, she has gone thru chemo/radiation treatments, anemia with transfusion, chronic pain, start of bilateral cataracts, occasionally incontinent of urine. History of Any Multi-Drug Resistant Organisms: None Reported Past Surgical History: Section, Cholecystectomy, Heart Catheterization, Tubal Ligation Additional Past Surgical History / Comment(s): Colonoscopy, port-pt states is nonfunctioning. Past Anesthesia/Blood Transfusion Reactions: Postoperative Nausea & Vomiting (PONV) Additional Past Anesthesia/Blood Transfusion Reaction / Comment(s): Pt states she received her first blood transfusion on 03/09/20 without reaction. She has clausterphobia. Past Psychological History: No Psychological Hx Reported Additional Psychological History / Comment(s): Pt resides with her spouse. She uses a cane or walker prn, depending on pain, She no longer drives. She states she has home care but cannot recall name of company and that they come in occasionally. Smoking Status: Former smoker Past Alcohol Use History: None Reported Additional Past Alcohol Use History / Comment(s): STARTED SMOKING AT AGE 13 QUIT AT AGE 58 SMOKED 1PPD Past Drug Use History: None Reported - Past Family History Mother Family Medical History: Cancer Additional Family Medical History / Comment(s): Mother had uterine cancer. Father Family Medical History: Cancer Additional Family Medical History / Comment(s): Father had penile cancer. Sister(s) Family Medical History: Vascular Disorder Additional Family Medical History / Comment(s): Sister had a aneurysm Medications and Allergies Home Medications Medication Instructions Recorded Confirmed Type lisinopriL [Zestril] 20 mg PO DAILY 02/24/19 04/12/20 History HYDROcodone/APAP 10-325MG [[place] 1 tab PO Q6H PRN 04/14/19 04/12/20 History 10-325] Sodium Chloride 5% Ophth Soln 1 drop BOTH EYES TID 03/10/20 04/12/20 History [Raad 128] Trifluridine/Tipiracil HCl See Taper PO DIRECTED 03/10/20 04/12/20 History [[place] 15 mg-6.14 mg Tablet] Trifluridine/Tipiracil HCl See Taper PO DIRECTED 03/10/20 04/12/20 History [[place] 20 mg-8.19 mg Tablet] fentaNYL [Duragesic 50MCG/HR] 1 patch TRANSDERM Q72H 03/10/20 04/12/20 History Zinc Oxide [Desitin] 1 applic TOPICAL Q2H PRN 04/03/20 04/12/20 History fentaNYL 25MCG/HR PATCH [[place] 1 patch TRANSDERM Q72H 04/10/20 04/12/20 History 25MCG/HR] Famotidine [Pepcid] 20 mg PO BID #14 tab 04/11/20 04/12/20 Rx dexAMETHasone [Hexadrol] 6 mg PO DAILY #6 tab 04/11/20 04/12/20 Rx Allergies Allergy/AdvReac Type Severity Reaction Status Date / Time bee venom protein (honey bee) Allergy Anaphylaxis Verified 04/12/20 14:49 capecitabine [From Xeloda] Allergy Unknown Verified 04/12/20 14:49 morphine AdvReac Confusion Verified 04/12/20 14:49 Physical Exam Vitals: Vital Signs Temp Pulse Pulse Resp BP BP Pulse Ox 04/13/20 08:00 98.0 F 113 H 20 128/74 91 L 04/13/20 04:00 98.6 F 103 H 20 122/91 90 L 04/13/20 00:00 98.0 F 96 20 126/80 92 L 04/12/20 20:00 98.4 F 80 20 118/77 92 L 04/12/20 19:00 98.2 F 108 H 18 130/91 93 L 04/12/20 17:32 90 16 133/99 94 L 04/12/20 16:44 103 H 16 128/104 94 L 04/12/20 15:48 88 16 141/101 98 04/12/20 13:57 97.6 F 83 20 140/104 93 L Intake and Output 04/12/20 04/13/20 04/13/20 22:59 06:59 14:59 Output Total 2 Balance -2 Output: Stool 2 Other: Voiding Method Bedside Commode Bedside Commode Diaper Diaper # Voids 3 Weight 57.153 kg 57.1 kg PHYSICAL EXAMINATION: GENERAL: The patient is alert and oriented x3, not in any acute distress. Well developed, well nourished. HEENT: Pupils are round and equally reacting to light. EOMI. No scleral icterus. No conjunctival pallor. Normocephalic, atraumatic. No pharyngeal erythema. No thyromegaly. CARDIOVASCULAR: S1 and S2 present. No murmurs, rubs, or gallops. PULMONARY: Chest is clear to auscultation, no wheezing or crackles. ABDOMEN: Soft, nontender, nondistended, normoactive bowel sounds. No palpable organomegaly. MUSCULOSKELETAL: No joint swelling or deformity. EXTREMITIES: No cyanosis, clubbing, or pedal edema. NEUROLOGICAL: Gross neurological examination did not reveal any focal deficits. SKIN: No rashes. Results CBC & Chem 7: 04/12/20 14:30 04/12/20 14:30 Labs: Abnormal Lab Results - Last 24 Hours (Table) 04/12/20 04/12/20 04/12/20 Range/Units 14:30 14:30 14:30 WBC 13.3 H (3.8-10.6) k/uL MCHC 29.1 L (31.0-37.0) g/dL RDW 22.5 H (11.5-15.5) % Neutrophils # 11.9 H (1.3-7.7) k/uL Lymphocytes # 0.7 L (1.0-4.8) k/uL PT 19.5 H (9.0-12.0) sec INR 2.0 H (<1.2) BUN 28 H (7-17) mg/dL Plasma Lactic Acid Blaise (0.7-2.0) mmol/L Magnesium 2.4 H (1.6-2.3) mg/dL Total Bilirubin 2.3 H (0.2-1.3) mg/dL AST 188 H (14-36) U/L Alkaline Phosphatase 785 H (38-126) U/L Creatine Kinase 138 H (30-135) U/L Total Protein 6.1 L (6.3-8.2) g/dL Albumin 2.8 L (3.5-5.0) g/dL 04/12/20 Range/Units 14:40 WBC (3.8-10.6) k/uL MCHC (31.0-37.0) g/dL RDW (11.5-15.5) % Neutrophils # (1.3-7.7) k/uL Lymphocytes # (1.0-4.8) k/uL PT (9.0-12.0) sec INR (<1.2) BUN (7-17) mg/dL Plasma Lactic Acid Blaise 2.8 H* (0.7-2.0) mmol/L Magnesium (1.6-2.3) mg/dL Total Bilirubin (0.2-1.3) mg/dL AST (14-36) U/L Alkaline Phosphatase (38-126) U/L Creatine Kinase (30-135) U/L Total Protein (6.3-8.2) g/dL Albumin (3.5-5.0) g/dL Thrombosis Risk Factor Assmnt - Choose All That Apply Each Risk Factor Represents 2 Points: Age 61-74 years, Malignancy Thrombosis Risk Factor Assessment Total Risk Factor Score: 4 Thrombosis Risk Factor Assessment Level: Moderate Risk Assessment and Plan Plan: -Acute hypoxic respiratory failure: Secondary to Covid 19. Patient is on Decadron. We'll leave the decision of Remdesivir infectious disease. -Tachycardia lactic is doses: Secondary to intravascular patient patient was started on IV fluids -Confusion, altered mental status: Toxic encephalopathies probably secondary to opiates and cutting down the dose of fentanyl patch. -Hypertension -Rectal cancer with the metastatic disease possible metastases to brain, consulted oncology. -Leukocytosis due to assessment #1 -DVT prophylaxis: Patient is presently alto anticoagulated with INR of 2
[2020-04-13 12:44] VITALS: BMI 24.5
[2020-04-13] MEDS: SODIUM CHLORIDE 0.9% 1,000 ML IV SCH ×2 (18:40→23:15)
[2020-04-13 20:23] LABS: Anisocytosis Moderate; HCT 37.3 % (34.0-46.0); Hypochromasia Marked; MCH 29.5 pg (25.0-35.0); MCHC 29.4 g/dL (31.0-37.0); MCV 100.3 fL (80.0-100.0); Macrocytosis Moderate; Mean Platelet Volume 8.8; RBC 3.72 m/uL (3.80-5.40); RDW 22.3 % (11.5-15.5); WBC 14.4 k/uL (3.8-10.6)
[2020-04-13 20:30] LABS: African American GFR (CKD) >90 (>60 ml/min/1.73 sqM); Anion Gap 8 mmol/L; Blood Urea Nitrogen 26 mg/dL (7-17); Calcium 8.2 mg/dL (8.4-10.2); Carbon Dioxide 27 mmol/L (22-30); Chloride 108 mmol/L (98-107); Glucose 85 mg/dL (74-99); Non-African American GFR(CKD) >90 (>60 ml/min/1.73 sqM); Potassium 3.8 mmol/L (3.5-5.1); Sodium 143 mmol/L (137-145)
[2020-04-13 20:32] LABS: Lactic Acid, Venous 2.6 mmol/L (0.7-2.0); Platelet Count 88 k/uL (150-450)
[2020-04-13 22:08] VITALS: BP 121/81; PULSE 101; RESP 26; TEMP 97.6
--- NOTE | 2020-04-13 22:53 | P.CONS ---
History of Present Illness - Reason for Consult Consult date: 04/13/20 pneumonia Requesting physician: Roxanna Rodriguez - Chief Complaint Mental status changes and hypoxemia x one day - History of Present Illness Patient is a 65-year-old female with a past medical history significant for metastatic rectal cancer with metastases to the lungs in this patient who was recently admitted at this facility from 04/09/2010 till 04/11/2020, patient was treated with the Decadron Zinc and Remdisivir , the day of discharge the patient was feeling better and was fighting to go home she was satting 96% on room air, patient subsequently has been brought back to the ER within 24 hour with concern for mental status changes confusion and its patient was noticed to have a low O2 sats of 68%, on arrival to the ER, the patient was afebrile and no fever has been recorded since then, the patient was hypoxic currently requiring 6 L nasal canal oxygen she did have elevated white count 13.3 with lymphopenia INR is 2.0, patient did have normal kidney function lactic acid was elevated AST elevated, no CRP or procalcitonin has been done, patient uses reported correlate for metastatic disease to bone patient did have a CT of the brain today shows large area of osteoblastic changes but especially in her left orbit consistent with metastatic disease, infection was considered for further management with recent diagnosis of Covid 19 ,patient at time of evaluation was pleasantly confused and unable to provide any history most information has been obtained from review the chart and talking to nursing staff Review of Systems Positive points has been mentioned in HPI complete review could not be obtained because of his underlying mental status Past Medical History Past Medical History: Cancer, Eye Disorder, Hypertension, Osteoarthritis (OA) Additional Past Medical History / Comment(s): Pt recently admitted to [facility] with failure to thrive, dehydration, severe protein calorie malnutrition/chronic pain from malignancy, hypotension. Other hx: Rectal cancer with metastasis to lung/liver/kidney L eye orbit and back-pt states treatments got rid of back mets/L eye orbit inflammation, she has gone thru chemo/radiation treatments, anemia with transfusion, chronic pain, start of bilateral cataracts, occasionally incontinent of urine. History of Any Multi-Drug Resistant Organisms: None Reported Past Surgical History: Section, Cholecystectomy, Heart Catheterization, Tubal Ligation Additional Past Surgical History / Comment(s): Colonoscopy, port-pt states is nonfunctioning. Past Anesthesia/Blood Transfusion Reactions: Postoperative Nausea & Vomiting (PONV) Additional Past Anesthesia/Blood Transfusion Reaction / Comm: Pt states she received her first blood transfusion on 03/09/20 without reaction. She has clausterphobia. Past Psychological History: No Psychological Hx Reported Additional Psychological History / Comment(s): Pt resides with her spouse. She uses a cane or walker prn, depending on pain, She no longer drives. She states she has home care but cannot recall name of company and that they come in occasionally. Smoking Status: Former smoker Past Alcohol Use History: None Reported Additional Past Alcohol Use History / Comment(s): STARTED SMOKING AT AGE 13 QUIT AT AGE 58 SMOKED 1PPD Past Drug Use History: None Reported - Past Family History Mother Family Medical History: Cancer Additional Family Medical History / Comment(s): Mother had uterine cancer. Father Family Medical History: Cancer Additional Family Medical History / Comment(s): Father had penile cancer. Sister(s) Family Medical History: Vascular Disorder Additional Family Medical History / Comment(s): Sister had a aneurysm Medications and Allergies Home Medications Medication Instructions Recorded Confirmed Type lisinopriL [Zestril] 20 mg PO DAILY 02/24/19 04/12/20 History HYDROcodone/APAP 10-325MG [[place] 1 tab PO Q6H PRN 04/14/19 04/12/20 History 10-325] Sodium Chloride 5% Ophth Soln 1 drop BOTH EYES TID 03/10/20 04/12/20 History [Raad 128] Trifluridine/Tipiracil HCl See Taper PO DIRECTED 03/10/20 04/12/20 History [Lonsurf 15 mg-6.14 mg Tablet] Trifluridine/Tipiracil HCl See Taper PO DIRECTED 03/10/20 04/12/20 History [Lonsurf 20 mg-8.19 mg Tablet] fentaNYL [Duragesic 50MCG/HR] 1 patch TRANSDERM Q72H 03/10/20 04/12/20 History Zinc Oxide [Desitin] 1 applic TOPICAL Q2H PRN 04/03/20 04/12/20 History fentaNYL 25MCG/HR PATCH [Duragesic 1 patch TRANSDERM Q72H 04/10/20 04/12/20 History 25MCG/HR] Famotidine [Pepcid] 20 mg PO BID #14 tab 04/11/20 04/12/20 Rx dexAMETHasone [Hexadrol] 6 mg PO DAILY #6 tab 04/11/20 04/12/20 Rx Allergies Allergy/AdvReac Type Severity Reaction Status Date / Time bee venom protein (honey bee) Allergy Anaphylaxis Verified 04/12/20 14:49 capecitabine [From Xeloda] Allergy Unknown Verified 04/12/20 14:49 morphine AdvReac Confusion Verified 04/12/20 14:49 Physical Exam Vitals: Vital Signs Temp Pulse Resp BP Pulse Ox 04/13/20 20:00 97.6 F 101 H 26 H 121/81 90 L 04/13/20 11:47 102 H 20 113/75 91 L 04/13/20 08:00 98.0 F 113 H 20 128/74 91 L 04/13/20 04:00 98.6 F 103 H 20 122/91 90 L 04/13/20 00:00 98.0 F 96 20 126/80 92 L Intake and Output 04/13/20 04/13/20 04/13/20 06:59 14:59 22:59 Intake Total 100 0 Output Total 2 Balance -2 100 0 Intake: Oral 100 0 Output: Stool 2 Other: Voiding Method Bedside Commode Bedpan Diaper Diaper # Voids 3 1 0 Weight 57.1 kg 57.1 kg GENERAL DESCRIPTION: Middle-aged female lying in bed, no distress. No tachypnea or accessory muscle of respiration use. HEENT: Shows Pallor , no scleral icterus. Oral mucous membrane is dry. No pharyngeal erythema or thrush NECK: Trachea central, no thyromegaly. LUNGS: Unlabored breathing. Decreased intensity of breath sounds. No wheeze or crackle. HEART: S1, S2, regular rate and rhythm. No loud murmur ABDOMEN: Soft, no tenderness , guarding or rigidity, no organomegaly EXTREMITIES: No edema of feet. SKIN: No rash, no masses palpable. NEUROLOGICAL: The patient is confused orientation could not be determined Results CBC & Chem 7: 04/13/20 20:08 04/13/20 20:08 Labs: Abnormal Lab Results - Last 24 Hours (Table) 04/13/20 04/13/20 04/13/20 Range/Units 20:08 20:08 20:08 WBC 14.4 H (3.8-10.6) k/uL RBC 3.72 L (3.80-5.40) m/uL Hgb 11.0 L (11.4-16.0) gm/dL MCV 100.3 H (80.0-100.0) fL MCHC 29.4 L (31.0-37.0) g/dL RDW 22.3 H (11.5-15.5) % Plt Count 88 L (150-450) k/uL Chloride 108 H (98-107) mmol/L BUN 26 H (7-17) mg/dL Creatinine 0.47 L (0.52-1.04) mg/dL Plasma Lactic Acid Blaise 2.6 H* (0.7-2.0) mmol/L Calcium 8.2 L (8.4-10.2) mg/dL Microbiology - Last 24 Hours (Table) 04/12/20 14:30 Blood Culture - Preliminary Blood No Growth after 24 hours Assessment and Plan Assessment: 1- patient presented to hospital with confusion and hypoxemia is likely multifactorial in this patient who did have metastatic rectal cancer with metastases to the lungs and recent diagnosis of Covid 19 pneumonia and the patient left after getting 2 doses of Remdisivir only now with evidence of metastases to the brain on the CT could be contributing to most of her symptomatology rather than pneumonia (1) COVID-19 Current Visit: Yes Status: Acute Code(s): U07.1 - COVID-19 SNOMED Code(s): 032180917 (2) Pneumonia Current Visit: Yes Status: Acute Code(s): J18.9 - PNEUMONIA, UNSPECIFIED ORGANISM SNOMED Code(s): 202911571 Plan: 1- in view of overall poor prognosis in this patient with metastatic rectal cancer now with evidence of brain metastases hospice maybe a better option at this point 2-patient to continue with the dexamethasone and seemed and the patient is anticoagulated, we will hold on adding Remdisivir at this point We will follow on clinical condition and cultures to further adjust medication if needed Thank you for this consultation will follow this patient with you she Time with Patient: Greater than 30
--- NOTE | 2020-04-14 00:25 | P.CONS ---
History of Present Illness - Reason for Consult Consult date: 04/13/20 SOB, bilateral pneumonitis, Covid, MS changes, rectal cancer - History of Present Illness This is a 65 yr old WF, pt of Dr Waters, who was diagnosed with metastatic rectal cancer in ,in [place],when she presented with weight loss and diarrhea,had a colonoscopy on 12/19/2016,was found to have suspicious,non obstructing rectal mass,biopsy was positive for invasive adenocarcinoma,KRAS positive. CT scan of chest/abdomen/pelvis done on 12/27/2016 revealed large rectal mass,multiple bilateral lung nodules,largest 3.4cm in RUL,multiple subcentimeter liver lesions.Her CEA on 01/14/2017 was 149.9 She received concurrent radiation therapy and xeloda to pelvis,completed in 03/18 She continued on oral xeloda at 1000mg bid one week on/one week off. MSI,BRAF,NRAS,HER2/SAMANTHA were request on the biopsy done in [facility] but COULD NOT be done except for the KRAS which was positive. On 05/28/2017,CT scan of spine revealed destructive lesion at L3 (was having significant pain),she received palliative XRT. Repeat CT scan of chest/abdomen/pelvis on 10/22/2017 revealed progression of her disease.Bone scan on 11/03/2017 revealed no new bone lesions. On 11/21/2019,she had repeat colonoscopy and biopsy of rectal mass,which was positive for malignancy,HER2/SAMANTHA negative,MS-I Stable.KRAS positive. On 12/09/2017,she started mFOLFOX6 regimen.She completed 11 cycles of mFOLFOX6 on 05/07/2018. ON 05/19/2018,she started maintenance infusional 5 FU On 08/25/2018,repeat CT scan of chest/abdomen/pelvis revealed slight increase in lung nodule,however,her CEA was up to 91.4 on 08/25/2018,infusional 5 FU was discontinued. She started FOLFIRI/avastin on 09/15/2018. She had total 6 cycles,was discontinued on 12/31/2018 per patient request to discontinue pump. She was started on camptosar/xeloda/avastin on 01/21/2019,however,she felt flushed,short of breath 2 days after starting xeloda,went to ER and xeloda was discontinued. On 02/24/2019,CT scan of abdomen/pelvis revealed progression of lung nodules,pathologic fracture at L4. On 03/29/2019,she started mFOLFOX6/avastin. She had a MRI in early April/2019 due to back pain which showed a lesion at T8 in April/2019 extending to spinal canal,she completed palliative XRT. On 06/04/2019,she had repeat CT scan of chest/abdomen/pelvis which revealed progression of her lung lesions( however,she had FOLFOX/avastin only 3 times since March/2019,she requested holding and delaying treatment,last treatment was on 05/10/2019).She resumed mFLOFOX6/Mvasi on 06/27/2019,she had 2 cycles,then she ended up in hospital with chest pain and dyspnea,it was felt to be coronary spasm secondary to 5 FU and treatment was discontinued on 07/06/2019. On 08/16/2019,she started escalating dose of regorafenib. She did not shown up for follow up visit for 3 months, but stated that she is taking 1 and 1/2 pills a day,3 weeks on and one week off. On 12/29/2019,repeat CT scan of chest/abdomen/pelvis revealed evidence of disease progression. On 01/04/2020,CEA was up to 488. She started lonsurf in January/2020. She was last seenin the office on 03/08 and at that time she was sympyomatically pancytopenic. Her Lonsurf was placed on hold x1 week, but she did not follow-up. She has had multiple hospital admissions since then. She was admitted on 03/20/20 with new metastasis involving the left orbit. She was started on steroids, and seen by radiation oncology. It appears that she had limited number of treatments but did not complete the course. She was then admitted again on 03/23/20 with back pain and treated with bracing and steroids. It appears that at this admission the patient had resumed the Lonsurf She was admitted again on 04/03/20 with shortness of breath and new lung infiltrates and was found to be positive for Covid. She received 1 dose of Remdesevir, but then insisted on being discharged. She was sent home on steroids The patient however continued to remain short of breath with cough and chest discomfort. Symptoms started to worsen further over the past 2 days. Apparently there were also episodes of confusion and increasing lethargy. She was therefore brought back to the hospital and admitted for further management. The patient has known bilateral lung metastasis. Imaging this admission showed the same, as well as additional bilateral lung infiltrates. CT of the head again showed left orbital metastasis with some pressure effect on the adjacent brain parenchyma. Consult was placed for further evaluation and recomm endations. At the time of my evaluation the patient was very lethargic and drowsy. She was oriented only 2. Only a very limited history could be obtained from her. Additional history and review of systems was obtained from the EMR, as well as from nursing. It is not clear if the patient was continuing on Lonsurf at home Review of Systems Constitutional: Reports chronic pain, Reports fatigue, Reports lethargy, Reports poor appetite, Reports weakness, Reports weight loss Eyes: left blurred vision Ears: deny: decreased hearing, ear discharge, earache, tinnitus Ears, nose, mouth and throat: Denies headache, Denies sore throat Cardiovascular: Reports rapid heart beat, Reports shortness of breath Gastrointestinal: Denies abdominal pain, Denies diarrhea, Denies nausea, Denies vomiting Genitourinary: Reports urgency Menstruation: Reports postmenopausal Musculoskeletal: Reports muscle weakness Integumentary: Denies pruritus, Denies rash Neurological: Reports ataxia, Reports change in mentation, Reports confusion, Reports weakness Psychiatric: Reports confusion, Reports difficulty concentrating, Reports memory loss Endocrine: Reports as per HPI, Reports fatigue, Reports thyroid mass Hematologic/Lymphatic: Reports as per HPI Past Medical History Past Medical History: Cancer, Eye Disorder, Hypertension, Osteoarthritis (OA) Additional Past Medical History / Comment(s): Pt recently admitted to [facility] with failure to thrive, dehydration, severe protein calorie malnutrition/chronic pain from malignancy, hypotension. Other hx: Rectal cancer with metastasis to lung/liver/kidney L eye orbit and back-pt states treatments got rid of back me ts/L eye orbit inflammation, she has gone thru chemo/radiation treatments, anemia with transfusion, chronic pain, start of bilateral cataracts, occasionally incontinent of urine. History of Any Multi-Drug Resistant Organisms: None Reported Past Surgical History: Section, Cholecystectomy, Heart Catheterization, Tubal Ligation Additional Past Surgical History / Comment(s): Colonoscopy, port-pt states is nonfunctioning. Past Anesthesia/Blood Transfusion Reactions: Postoperative Nausea & Vomiting (PONV) Additional Past Anesthesia/Blood Transfusion Reaction / Comm: Pt states she received her first blood transfusion on 03/09/20 without reaction. She has clausterphobia. Past Psychological History: No Psychological Hx Reported Additional Psychological History / Comment(s): Pt resides with her spouse. She uses a cane or walker prn, depending on pain, She no longer drives. She states she has home care but cannot recall name of company and that they come in occasionally. Smoking Status: Former smoker Past Alcohol Use History: None Reported Additional Past Alcohol Use History / Comment(s): STARTED SMOKING AT AGE 13 QUIT AT AGE 58 SMOKED 1PPD Past Drug Use History: None Reported - Past Family History Mother Family Medical History: Cancer Additional Family Medical History / Comment(s): Mother had uterine cancer. Father Family Medical History: Cancer Additional Family Medical History / Comment(s): Father had penile cancer. Sister(s) Family Medical History: Vascular Disorder Additional Family Medical History / Comment(s): Sister had a aneurysm Medications and Allergies Home Medications Medication Instructions Recorded Confirmed Type lisinopriL [Zestril] 20 mg PO DAILY 02/24/19 04/12/20 History HYDROcodone/APAP 10-325MG [[place] 1 tab PO Q6H PRN 04/14/19 04/12/20 History 10-325] Sodium Chloride 5% Ophth Soln 1 drop BOTH EYES TID 03/10/20 04/12/20 History [Raad 128] Trifluridine/Tipiracil HCl See Taper PO DIRECTED 03/10/20 04/12/20 History [Lonsurf 15 mg-6.14 mg Tablet] Trifluridine/Tipiracil HCl See Taper PO DIRECTED 03/10/20 04/12/20 History [Lonsurf 20 mg-8.19 mg Tablet] fentaNYL [Duragesic 50MCG/HR] 1 patch TRANSDERM Q72H 03/10/20 04/12/20 History Zinc Oxide [Desitin] 1 applic TOPICAL Q2H PRN 04/03/20 04/12/20 History fentaNYL 25MCG/HR PATCH [Duragesic 1 patch TRANSDERM Q72H 04/10/20 04/12/20 History 25MCG/HR] Famotidine [Pepcid] 20 mg PO BID #14 tab 04/11/20 04/12/20 Rx dexAMETHasone [Hexadrol] 6 mg PO DAILY #6 tab 04/11/20 04/12/20 Rx Allergies Allergy/AdvReac Type Severity Reaction Status Date / Time bee venom protein (honey bee) Allergy Anaphylaxis Verified 04/12/20 14:49 capecitabine [From Xeloda] Allergy Unknown Verified 04/12/20 14:49 morphine AdvReac Confusion Verified 04/12/20 14:49 Physical Exam Vitals: Vital Signs Temp Pulse Resp BP Pulse Ox 04/13/20 20:00 97.6 F 101 H 26 H 121/81 90 L 04/13/20 11:47 102 H 20 113/75 91 L 04/13/20 08:00 98.0 F 113 H 20 128/74 91 L 04/13/20 04:00 98.6 F 103 H 20 122/91 90 L 04/13/20 00:00 98.0 F 96 20 126/80 92 L Intake and Output 04/13/20 04/13/20 04/14/20 14:59 22:59 06:59 Intake Total 100 0 Balance 100 0 Intake: Oral 100 0 Other: Voiding Method Bedpan Diaper # Voids 1 0 Weight 57.1 kg - Constitutional General appearance: mild distress - EENT Left orbital mass, left-sided proptosis. Left-sided vision diminished ENT: hearing grossly normal, normal oropharynx - Neck Neck: no lymphadenopathy Thyroid: bilateral: normal size - Respiratory Respiratory: bilateral: rhonchi, prolonged expiration - Cardiovascular Rhythm: regular Heart sounds: normal: S1, S2 - Gastrointestinal General gastrointestinal: normal bowel sounds, soft Localized gastrointestinal: tender: RUQ - Integumentary Integumentary: normal - Musculoskeletal Musculoskeletal: generalized weakness, strength equal bilaterally - Psychiatric Lethargic, drowsy. Difficult to arouse. Recall very poor. Obeying commands only intermittently Results CBC & Chem 7: 04/13/20 20:08 04/13/20 20:08 Labs: Abnormal Lab Results - Last 24 Hours (Table) 04/13/20 04/13/20 04/13/20 Range/Units 20:08 20:08 20:08 WBC 14.4 H (3.8-10.6) k/uL RBC 3.72 L (3.80-5.40) m/uL Hgb 11.0 L (11.4-16.0) gm/dL MCV 100.3 H (80.0-100.0) fL MCHC 29.4 L (31.0-37.0) g/dL RDW 22.3 H (11.5-15.5) % Plt Count 88 L (150-450) k/uL Chloride 108 H (98-107) mmol/L BUN 26 H (7-17) mg/dL Creatinine 0.47 L (0.52-1.04) mg/dL Plasma Lactic Acid Blaise 2.6 H* (0.7-2.0) mmol/L Calcium 8.2 L (8.4-10.2) mg/dL Microbiology - Last 24 Hours (Table) 04/12/20 14:30 Blood Culture - Preliminary Blood No Growth after 24 hours Chest x-ray: report reviewed CT scan - chest: report reviewed CT Scan - head: report reviewed Assessment and Plan (1) Acute respiratory failure with hypoxia Narrative/Plan: The patient's chest x-ray continues to show bilateral metastasis, with superimposed bilateral pneumonia. The patient has a recent diagnosis of Covid. Current respiratory decompensation is more likely related to superimposed Covid rather than metastatic disease. While the patient does have numerous lung metastases these are mostly small. Imaging also did not show any large focal pneumonia or atelectasis suggestive of post obstruction - Therefore delivered to the admitting service and ID for continued management. Current Visit: No Status: Acute Code(s): J96.01 - ACUTE RESPIRATORY FAILURE WITH HYPOXIA SNOMED Code(s): 90148437 (2) COVID-19 Narrative/Plan: As above. Current Visit: Yes Status: Acute Code(s): U07.1 - COVID-19 SNOMED Code(s): 811054038 (3) Metastasis from rectal cancer Narrative/Plan: Diagnostic antibiotics circumstances as noted above. Regardless of the Covid infection, which has caused significant new decompensation, the patient's prognosis from the rectal cancer itself was quite guarded. She has widely metastatic disease, and had progressed through multiple treatments. Hospice had been discussed with her at her last visit in the office but at the time the patient had stated that she was not ready for the same and wanted to continue Lonsurf if possible. The patient has had definite progression since with development of the left orbital metastasis. It does not appear that she completed the prescribed course of radiation for the same. The patient's chemotherapy had been held on her visit on 03/08/20, but the development of the large orbital metastasis within a couple of weeks of holding the chemotherapy most likely indicated progression. At this time it could not be determined from the patient if she had been back on the chemotherapy at home or not. In the case clinically there is suspicion for progression, with significant increase in liver enzymes from baseline. - Check CEA - If this confirms progression, as expected, we will attempt to contact the family to discuss goals of care. Even if the patient has not been taking the Lonsurf regularly, the chances of her benefiting from resuming it and taking it on a regular basis would be quite slim, that assuming that she would even be able to tolerate it given her prior issues. Therefore discussion of comfort care would be quite appropriate. - Patient did indicate that it would be appropriate to discuss her case with her . Current Visit: No Status: Acute Code(s): C79.9 - SECONDARY MALIGNANT NEOPLASM OF UNSPECIFIED SITE; C20 - MALIGNANT NEOPLASM OF RECTUM SNOMED Code(s): 937801324 Plan: Evaluation as well as assessment and plan discussed in detail with the admitting service.
--- NOTE | 2020-04-18 07:52 | CDI ---
Documentation Clarification Form Date: 04/18/2020 07:48:11 AM From: Martha Denny RN. CCDS Admit Date: 04/12/2020 04:15:00 PM Patient Name: Radha Cobb Visit Number: [id number] Discharge Date: 04/13/2020 09:25:00 PM ATTENTION: The Clinical Documentation Specialists (CDI) and [facility] Coding Staff appreciate your assistance in clarifying documentation. Please respond to the clarification below the line at the bottom and electronically sign. The CDI & [facility] Coding staff will review the response and follow-up if needed. Please note: Queries are made part of the Legal Health Record. If you have any questions, please contact the author of this message via ITS. Dr. Rodriguez Severe protein calorie Malnutrition has been documented in PMH and requires clarification of if this condition is still present. History/Risk Factors: Postobstructive pneumonia, Covid 19 with respiratory failure, Rectal CA with mets to lung, liver, kidney, brain, and bone, Patient on chemotherapy Clinical Indicators: 04/12-04/13 Labs: BUN 28/24, Plasma Lactic Acid 2.8/2.6, total Bilirubin 2.3, AST 188, Alk Phos 785, Total Protein 6.1, Albumin 2.8 Current BMI: 24.6 Insufficient energy intake: NPO 04/13 Oncology Consult: "This is a 65 yr old WF, pt of Dr Waters, who was diagnosed with metastatic rectal cancer in ,in [place],when she presented with weight loss and diarrhea,had a colonoscopy on 12/19/2016,was found to have suspicious,non obstructing rectal mass,biopsy was positive for invasive adenocarcinoma,KRAS positive. Constitutional: Reports chronic pain, Reports fatigue, Reports lethargy, Reports poor appetite, Reports weakness, Reports weight loss." Loss of subcutaneous fat: Stage 2 pressure ulcer on Coccyx Decreased hand laundry route driver strength: generalized weakness Fluid Accumulation: +2 bilateral lower extremity edema Treatment: Dietary Consult: Completed 04/13/2020 Supplements: Ensure Enlive TID Lab monitoring: Am Daily In your professional opinion, can you please clarify if these findings signify one of the following conditions? Mild Protein-Calorie Malnutrition Moderate Protein-Calorie Malnutrition Severe Protein-Calorie Malnutrition Other condition, please specify Unable to determine (Last Revision: November 2018) No malnutrition MTDD
--- NOTE | 2020-04-18 08:03 | CDI ---
Documentation Clarification Form Mortality Review Date: 04/18/2020 07:54:01 AM From: Martha Denny RN, CCDS Admit Date: 04/12/2020 04:15:00 PM Patient Name: Radha Cobb Visit Number: [id number] Discharge Date: 04/13/2020 09:25:00 PM ATTENTION: The Clinical Documentation Specialists (CDI) and [facility] Coding Staff appreciate your assistance in clarifying documentation. Please respond to the clarification below the line at the bottom and electronically sign. The CDI & [facility] Coding staff will review the response and follow-up if needed. Please note: Queries are made part of the Legal Health Record. If you have any questions, please contact the author of this message via ITS. Dr. Roxanna Rodriguez A pressure ulcer was documented in the Nursing and dietary assessments and requires documentation by MD. History/Risk Factors: Severe PCM, rectal CA with Mets, chemo, failure to thrive, Covid 19 with acute hypoxic respiratory failure, toxic encephalopathy Clinical Indicators: 04/13 Dietary Consult: Stage 2 pressure ulcer on coccyx 04/13 0800 & 1999 Nursing Assessment: pressure injury POA, Stage 2, distinct wound margins, photo on chart Location: coccyx Wound description: stage 2- no further description is documented Treatment: Ensure Enlive TID No documented wound care interventions by nursing and no MD wound care orders Elements for accurate and compliant documentation of an ulcer: *The location/laterality of the ulcer *Etiology (decubitus/pressure, diabetic, PVD) *Stage I-IV, Unstageable, Suspected Deep Tissue Injury (To the deepest stage) *If the ulcer was present at admission (POA) or occurred after admission In your professional opinion, can you please clarify the diagnosis, location, laterality and whether present on admission (POA): Stage 1 Pressure/Decubitus Ulcer (intact skin, non-blanching redness of local area) Stage 2 Pressure/Decubitus Ulcer (Partial thickness, loss of dermis, pink wound bed) bone, tendon, or muscle. May have slough or eschar present) Other condition, please specify Unable to determine Please indicate etiology of pressure ulcer (if known). (Last Revision: March 2017) Stage 2 Pressure/Decubitus Ulcer ( MTDD
--- NOTE | 2020-04-18 15:59 | P.DS ---
Providers Date of admission: 04/12/20 16:15 Expected date of discharge: 04/14/20 Attending physician: Marcelino Combs Consults: 04/12/20 16:03 Consult Physician Urgent Consulting Provider: Hanane Giraldo Consult Reason/Comments: covid 19 positive with metastatic lung disease, question start remdesivir Do you want consulting provider notified?: Yes 04/13/20 07:39 Consult Physician Urgent Consulting Provider: Ryan Bryson Consult Reason/Comments: Rectal CA with Mets, Brain CT shows metastatic changes Do you want consulting provider notified?: Yes Primary care physician: Jamilah Barrera [facility] Course: Patient with metastatic colon cancer admitted for covid 19 pneumonia patient went into respiratory failure subsequently patient has widely metastatic disease. Patient on 04/14/2020 please refer to nursing documentation for exact time of . Patient Condition at Discharge: Fair Plan - Discharge Summary Discharge Rx Participant: No New Discharge Prescriptions: No Action lisinopriL [Zestril] 20 mg PO DAILY HYDROcodone/APAP 10-325MG [[place] 10-325] 1 tab PO Q6H PRN PRN Reason: Pain Trifluridine/Tipiracil HCl [Lonsurf 20 mg-8.19 mg Tablet] See Taper PO DIRECTED Trifluridine/Tipiracil HCl [Lonsurf 15 mg-6.14 mg Tablet] See Taper PO DIRECTED fentaNYL [Duragesic 50MCG/HR] 1 patch TRANSDERM Q72H Sodium Chloride 5% Ophth Soln [Raad 128] 1 drop BOTH EYES TID Zinc Oxide [Desitin] 1 applic TOPICAL Q2H PRN PRN Reason: BED SORE fentaNYL 25MCG/HR PATCH [Duragesic 25MCG/HR] 1 patch TRANSDERM Q72H dexAMETHasone [Hexadrol] 6 mg PO DAILY #6 tab Famotidine [Pepcid] 20 mg PO BID #14 tab Discharge Medication List lisinopriL [Zestril] 20 mg PO DAILY 02/24/19 [History] HYDROcodone/APAP 10-325MG [[place] 10-325] 1 tab PO Q6H PRN 04/14/19 [History] Sodium Chloride 5% Ophth Soln [Raad 128] 1 drop BOTH EYES TID 03/10/20 [History] Trifluridine/Tipiracil HCl [Lonsurf 15 mg-6.14 mg Tablet] See Taper PO DIRECTED 03/10/20 [History] Trifluridine/Tipiracil HCl [Lonsurf 20 mg-8.19 mg Tablet] See Taper PO DIRECTED 03/10/20 [History] fentaNYL [Duragesic 50MCG/HR] 1 patch TRANSDERM Q72H 03/10/20 [History] Zinc Oxide [Desitin] 1 applic TOPICAL Q2H PRN 04/03/20 [History] fentaNYL 25MCG/HR PATCH [Duragesic 25MCG/HR] 1 patch TRANSDERM Q72H 04/10/20 [History] Famotidine [Pepcid] 20 mg PO BID #14 tab 04/11/20 [Rx] dexAMETHasone [Hexadrol] 6 mg PO DAILY #6 tab 04/11/20 [Rx] Follow up Appointment(s)/Referral(s): Sharon Askew MD [Primary Care Provider] - 1-2 days Discharge Disposition: - Preliminary Cause of Preliminary Cause of : Covid 19, metastatic colon cancer
== END 2020-04-13 21:25 | disposition expired | DRG 177 ==
LOC: EC 13:52 → 3SCARD 16:15
PROVIDERS: ADMIT Hospitalist; ATTEND Hospitalist
DX: U07.1 COVID-19 (principal); G92 Toxic encephalopathy; J12.89 Other viral pneumonia; J96.01 Acute respiratory failure with hypoxia; C20 Malignant neoplasm of rectum; C78.01 Secondary malignant neoplasm of right lung; C78.02 Secondary malignant neoplasm of left lung; C79.31 Secondary malignant neoplasm of brain; C79.51 Secondary malignant neoplasm of bone; C79.00 Secondary malignant neoplasm of unspecified kidney and renal pelvis; E87.2 Acidosis; T40.605A Adverse effect of unspecified narcotics, initial encounter; D72.810 Lymphocytopenia; E86.0 Dehydration; I10 Essential (primary) hypertension; L89.152 Pressure ulcer of sacral region, stage 2; K76.9 Liver disease, unspecified; Z79.899 Other long term (current) drug therapy; Z80.49 Family history of malignant neoplasm of other genital organs; Z87.891 Personal history of nicotine dependence; Z92.3 Personal history of irradiation; Z92.21 Personal history of antineoplastic chemotherapy; R63.4 Abnormal weight loss; Z68.24 Body mass index [BMI] 24.0-24.9, adult; Z15.09 Genetic susceptibility to other malignant neoplasm; H26.9 Unspecified cataract; R32 Unspecified urinary incontinence; Z88.5 Allergy status to narcotic agent; R00.0 Tachycardia, unspecified; Z88.8 Allergy status to other drugs, medicaments and biological substances; Z91.030 Bee allergy status; M19.90 Unspecified osteoarthritis, unspecified site; G89.3 Neoplasm related pain (acute) (chronic); F40.240 Claustrophobia; Z98.51 Tubal ligation status; Z90.49 Acquired absence of other specified parts of digestive tract
CPT/HCPCS: 36415; 70450; 71045; 71046; 80048; 80053; 82140; 82550; 83605; 83735; 83880; 84484; 85025; 85027; 85610; 85730; 87040; 93005; 96365; 99285